=== PATIENT | male | born 1940 | race African-American/Black ===

== ENCOUNTER 2018-06-14 13:40 | Inpatient (IN) | payer MEDICARE, OTHER ==
[2018-06-14] VITALS (7 sets, daily range): BP systolic 94–168; BP diastolic 70–109
[~2018-06-14] VITALS: Ht 177.8 cm; Wt 99.3 kg
--- NOTE | 2018-06-14 13:40 | NUR ---
ED Nurse Note: PT BROUGHT IN BY R34 FROM HOME. PT CONFUSED UPON ARRIVAL. PER EMS, PT IS HYPOTENSIVE. UPON ARRIVAL BP: 94/70, HR: 134, AND RR:34@98% O2 SATURATION. BG AT BEDSIDE: CRITICALLY HIGH. DR. JAMES RAMIRES.
--- NOTE | 2018-06-14 14:00 | NUR ---
ED Nurse Note: PT BROTHER AT BEDSIDE WHO REPORTS THAT AMBULANCE WAS INITIALLY CALLED DUE TO PT'S INABILITY TO CONSUME FOOD X 3 DAYS AND INCREASING FATIGUE.
[2018-06-14 14:21] LABS: BASOPHILS % (AUTO) 0.7 % (0.0-2.0); EOSINOPHILS % (AUTO) 0.1 % (0.0-3.0); HEMATOCRIT 47.1 % (42.0-52.0); HEMOGLOBIN 15.6 G/DL (14.2-18.0); LYMPHOCYTES % (AUTO) 15.6 % (20.0-45.0); MEAN CORPUSCULAR VOLUME 96 FL (80-99); MONOCYTES % (AUTO) 8.1 % (1.0-10.0); NEUTROPHILS % (AUTO) 75.6 % (45.0-75.0); PLATELET COUNT 249 K/UL (150-450); RED CELL DISTRIBUTION WIDTH 12.4 % (11.6-14.8); WHITE BLOOD COUNT 12.5 K/UL (4.8-10.8)
[2018-06-14 14:57] LABS: ALANINE AMINOTRANSFERASE 16 U/L (12-78); ALBUMIN 2.8 G/DL (3.4-5.0); ALBUMIN/GLOBULIN RATIO 0.7 (1.0-2.7); ALKALINE PHOSPHATASE 89 U/L (46-116); ANION GAP 17 mmol/L (5-15); ASPARTATE AMINO TRANSFERASE 14 U/L (15-37); BILIRUBIN,TOTAL 0.8 MG/DL (0.2-1.0); BLOOD UREA NITROGEN 92 mg/dL (7-18); CARBON DIOXIDE 19 MMOL/L (21-32); CHLORIDE 102 MMOL/L (98-107); CKMB 1.9 NG/ML (0.0-3.6); CREATINE KINASE 175 U/L (26-308); CREATININE 2.7 MG/DL (0.55-1.30); POTASSIUM 4.7 MMOL/L (3.5-5.1); SODIUM 138 MMOL/L (136-145)
--- NOTE | 2018-06-14 15:48 | Diagnostic Imaging Report ---
Indication: Chest pain Technique: One view of the chest Comparison: none Findings: Inspiration is suboptimal, with some crowding of bronchovascular markings. The heart is borderline enlarged. The lungs and pleural spaces are clear. The aorta is tortuous. Impression: Borderline cardiomegaly No definite acute process
[2018-06-14 15:54] LABS: APPEARANCE,URINE CLEAR; BILIRUBIN, URINE NEGATIVE (NEGATIVE); COLOR,URINE PALE YELLOW; GLUCOSE, URINE (UA) 4+ (NEGATIVE); KETONES,URINE 2+ (NEGATIVE); LEUKOCYTE ESTERASE ,URINE NEGATIVE (NEGATIVE); NITRITE,URINE NEGATIVE (NEGATIVE); PH,URINE 5 (4.5-8.0); PROTEIN,URINE 2+ (NEGATIVE); UROBILINOGEN,URINE NORMAL MG/DL (0.0-1.0)
[2018-06-14] MEDS ORDERED: Cefepime HCl 1 GM in D5W 55 ML IVPB ONE (16:00)
--- NOTE | 2018-06-14 16:21 | Emergency Room Report ---
History of Present Illness General Chief Complaint: Altered Mental Status Source: Patient, Family Member Present Illness HPI This patient is accompanied by his brother. The patient has a history of diabetes. The patient reports a few days of weakness and inability to eat. The brother states that patient seems confused and fatigued. The patient denies pain. He denies nausea or vomiting. He denies recent illness. He denies fever or chills. He denies cough or congestion. He does have a history of diabetes but has not taken his blood sugar in the past few days or taken any of his medications. He has no other complaints. Allergies: Coded Allergies: No Known Allergies (Unverified , 06/14/18) Patient History Past Medical History: see triage record, DM, HTN Social History: Denies: smoking, alcohol use, drug use Reviewed Nursing Documentation: PMH: Agreed; PSxH: Agreed Review of Systems All Other Systems: negative except mentioned in HPI Physical Exam Vital Signs Date Time Temp Pulse Resp B/P (MAP) Pulse Ox O2 Delivery O2 Flow Rate FiO2 06/14/18 13:40 134 34 Nasal Cannula 2.0 06/14/18 13:40 94/70 99 06/14/18 14:36 97.5 Sp02 EP Interpretation: reviewed, normal General Appearance: no apparent distress, alert, GCS 15, non-toxic Head: normocephalic, atraumatic Eyes: bilateral eye normal inspection, bilateral eye PERRL ENT: hearing grossly normal, normal pharynx, no angioedema, normal voice Neck: full range of motion, supple/symm/no masses Respiratory: chest non-tender, lungs clear, normal breath sounds, no respiratory distress, no retraction, no accessory muscle use, speaking full sentences Cardiovascular #1: regular rate, rhythm, no edema Gastrointestinal: normal bowel sounds, non tender, soft, non-distended, no guarding, no rebound Rectal: deferred Musculoskeletal: back normal, gait/station normal, normal range of motion, non- tender, calf tenderness Neurologic: alert, responsive, motor strength/tone normal, sensory intact, speech normal, other - Difficulty recalling details like medications ect. Psychiatric: mood/affect normal, no suicidal/homicidal ideation Skin: normal color, no rash, warm/dry, well hydrated Medical Decision Making Diagnostic Impression: Primary Impression: Hyperglycemic hyperosmolar nonketotic coma Additional Impressions: Acute renal failure Lactic acidosis Dehydration Tachycardia Pneumonia Altered mental status ER Course This patient presents with hyperglycemic hyperosmolar syndrome. This is likely causing his altered mental status and this is likely multifactorial with the acute renal failure. The patient is also profoundly dehydrated and in acute renal failure. The patient was found to have a lactic acidosis and tachycardia. There is a questionable opacification on chest x-ray that could be pneumonia versus artifact given the poor inspiration on the film. The patient was given aggressive IV fluids and broad-spectrum antibiotics and admitted to the ICU. This patient is critically ill. This patient required complex medical decision- making, aggressive intervention, extensive laboratory workup and monitoring. Critical care time: 40 minutes. Laboratory Tests Test 06/14/18 13:45 06/14/18 14:00 White Blood Count 12.5 K/UL (4.8-10.8) H Red Blood Count 4.90 M/UL (4.70-6.10) Hemoglobin 15.6 G/DL (14.2-18.0) Hematocrit 47.1 % (42.0-52.0) Mean Corpuscular Volume 96 FL (80-99) Mean Corpuscular Hemoglobin 31.9 PG (27.0-31.0) H Mean Corpuscular Hemoglobin Concent 33.2 G/DL (32.0-36.0) Red Cell Distribution Width 12.4 % (11.6-14.8) Platelet Count 249 K/UL (150-450) Mean Platelet Volume 6.9 FL (6.5-10.1) Neutrophils (%) (Auto) 75.6 % (45.0-75.0) H Lymphocytes (%) (Auto) 15.6 % (20.0-45.0) L Monocytes (%) (Auto) 8.1 % (1.0-10.0) Eosinophils (%) (Auto) 0.1 % (0.0-3.0) Basophils (%) (Auto) 0.7 % (0.0-2.0) Urine Color Pale yellow Urine Appearance Clear Urine pH 5 (4.5-8.0) Urine Specific [place] 1.015 (1.005-1.035) Urine Protein 2+ (NEGATIVE) H Urine Glucose (UA) 4+ (NEGATIVE) H Urine Ketones 2+ (NEGATIVE) H Urine Blood 2+ (NEGATIVE) H Urine Nitrite Negative (NEGATIVE) Urine Bilirubin Negative (NEGATIVE) Urine Urobilinogen Normal MG/DL (0.0-1.0) Urine Leukocyte Esterase Negative (NEGATIVE) Urine RBC 2-4 /HPF (0 - 0) H Urine WBC 0-2 /HPF (0 - 0) Urine Squamous Epithelial Cells Occasional /LPF Urine Bacteria None /HPF (NONE) Sodium Level 138 MMOL/L (136-145) Potassium Level 4.7 MMOL/L (3.5-5.1) Chloride Level 102 MMOL/L (98-107) Carbon Dioxide Level 19 MMOL/L (21-32) L Anion Gap 17 mmol/L (5-15) H Blood Urea Nitrogen 92 mg/dL (7-18) H Creatinine 2.7 MG/DL (0.55-1.30) H Estimate Glomerular Filtration Rate mL/min (>60) Glucose Level 542 MG/DL (74-106) *H Lactic Acid Level 6.00 mmol/L (0.4-2.0) H Calcium Level 9.0 MG/DL (8.5-10.1) Magnesium Level 2.0 MG/DL (1.8-2.4) Total Bilirubin 0.8 MG/DL (0.2-1.0) Aspartate Amino Transferase (AST) 14 U/L (15-37) L Alanine Aminotransferase (ALT) 16 U/L (12-78) Alkaline Phosphatase 89 U/L (46-116) Total Creatine Kinase 175 U/L (26-308) Creatine Kinase MB 1.9 NG/ML (0.0-3.6) Creatine Kinase MB Relative Index 1.0 Troponin I 0.096 ng/mL (0.000-0.056) Total Protein 6.6 G/DL (6.4-8.2) Albumin 2.8 G/DL (3.4-5.0) L Globulin 3.8 g/dL Albumin/Globulin Ratio 0.7 (1.0-2.7) L Acetone Level Negative (NEGATIVE) Arterial Blood pH 7.321 (7.350-7.450) Arterial Blood Partial Pressure CO2 33.9 mmHg (35.0-45.0) L Arterial Blood Partial Pressure O2 118.6 mmHg (75.0-100.0) H Arterial Blood HCO3 17.1 mmol/L (22.0-26.0) *L Arterial Blood Oxygen Saturation 97.3 % (95-100) Arterial Blood Base Excess -8.0 (-2-2) L Josef Test Positive Microbiology Date/Time Source Procedure Growth Status 06/14/18 13:45 Nasal Nares Influenza Types A,B Antigen (NEIL) - Final Complete EKG Diagnostic Results Rate: tachycardiac Rhythm: other - S.tachycardia, RBBB ST Segments: no acute changes Rhythm Strip Diag. Results EP Interpretation: yes Rate: 140's Rhythm: no PVC's, no ectopy, other - s.tachycardia Chest X-Ray Diagnostic Results Chest X-Ray Diagnostic Results : Chest X-Ray Ordered: Yes # of Views/Limited/Complete: 1 View Indication: Other - AMS EP Interpretation: Yes Interpretation: other - Questionable opacity in the RLL Impression: Other - See above Electronically Signed by: Triny Lopez DO Last Vital Signs Date Time Temp Pulse Resp B/P (MAP) Pulse Ox O2 Delivery O2 Flow Rate FiO2 06/14/18 14:36 97.5 127 20 137/76 97 Nasal Cannula 2.0 Disposition: ADMITTED INPATIENT Condition: Critical Referrals: NOT CHOSEN IPA/,REFERRING (PCP) Triny Lopez DO Jun 14, 2018 16:20
--- NOTE | 2018-06-14 16:58 | NUR ---
ED Nurse Note: KULDEEP (SON): [phone]
--- NOTE | 2018-06-14 17:07 | NUR ---
ED Nurse Note: BG RECHECK: 307. DR. FISHER MADE AWARE.
[2018-06-14] MEDS ORDERED: Morphine Sulfate 4mg/ml Inj (IV USE ONLY) IVP PRN (17:15)
[2018-06-14] MEDS ORDERED: Insulin Rate Change 1 Each MISC PRN (17:15)
[2018-06-14] MEDS ORDERED: Insulin Human Regular 100units/ml 3ml IV PRN ×2 (17:15)
[2018-06-14] MEDS ORDERED: Nitroglycerin Subl 0.4mg tab SL PRN (17:15)
[2018-06-14] MEDS ORDERED: Albuterol/Ipratropium 3ml neb HHN PRN (17:15)
[2018-06-14] MEDS ORDERED: LORazepam Inj 2mg/ml 1ml IV PRN (17:15)
[2018-06-14] MEDS ORDERED: Miralax 17gm pkt ORAL PRN (17:15)
--- NOTE | 2018-06-14 17:40 | NUR ---
ED Nurse Note: CALLED ICU FOR PT REPORT. PER ICU CHARGE NURSE, PT DOES NOT BELONG IN ICU. ICU CHARGE WILL CALL [employer] FOR BED CHANGE.
--- NOTE | 2018-06-14 17:50 | NUR ---
Note katerina in EDM - 06/14/18 at 1751 by SUDHA ED Nurse Note: CALLED SDU FOR PT REPORT. PER UNIT, CANNOT FIND NURSE. CALL BACK LATER.
--- NOTE | 2018-06-14 18:45 | NUR ---
ED Nurse Note: CALLED ICU AND SPOKE WITH CHARGE NURSE. CHARGE NURSE STILL REFUSING TO TAKE PT BUT SHE BELIEVES THE PT DOES NOT BELONG IN ICU.
--- NOTE | 2018-06-14 19:11 | NUR ---
ED Nurse Note: REPORT GIVEN TO MIGUEL JAY RN.
--- NOTE | 2018-06-14 19:30 | NUR ---
ED Nurse Note: Called ICU for report. Receiving RN unable to receive report; will attempt again in 15 min
--- NOTE | 2018-06-14 20:30 | NUR ---
TRANSFER TO FLOOR: Patient transferred to SDU 239 as ordered, per MD Palomo . Report given to LELE Knott. Belongings list completed with receiving RN.
--- NOTE | 2018-06-14 20:45 | NUR ---
NURSE NOTES: Received patient from ER, patient arrived via stretcher with RN and a staff. Report received from LELE Otero at bed side. V/S is bp98.2, p 122, rr 20, bp 168/100, sp02 95% RA, denies any pain. Tele box put on. Condom cath put on patient. patient is now in bed in funk position. IV site is to right hand 20g and right forearm 20g and both is intact. Bed is in lowest position .Call light is within easy reach while in bed. Will continue to monitor.
[2018-06-14] MEDS: Heparin 5000 units/ml inj SUBQ SCH (22:37)
--- NOTE | 2018-06-14 22:51 | NUR ---
NURSE NOTES: Patient pulled out IV to right forearm and took off all the blanket and gown. Asked why he did that and he said he doesnt know. patient also took off the condom cath. a new one is applied. Will continue to monitor patient.
[2018-06-15] VITALS: BP 180/95
[2018-06-15] MEDS: NovoLOG Insulin Flexpen SUBQ SCH ×8 (01:03→21:00)
[2018-06-15] MEDS ORDERED: LORazepam Inj 2mg/ml 1ml IV PRN (02:15)
[2018-06-15 04:00] VITALS: BP 164/84
[2018-06-15 06:24] LABS: INR 1.1 (0.9-1.1)
[2018-06-15 06:39] LABS: ALANINE AMINOTRANSFERASE 14 U/L (12-78); ALBUMIN 2.4 G/DL (3.4-5.0); ALKALINE PHOSPHATASE 69 U/L (46-116); ASPARTATE AMINO TRANSFERASE 13 U/L (15-37); BILIRUBIN,DIRECT < 0.1 MG/DL (0.0-0.3); BILIRUBIN,TOTAL 0.4 MG/DL (0.2-1.0)
--- NOTE | 2018-06-15 07:00 | NUR ---
HAND-OFF: Report given to Esau Matthews RN .
[2018-06-15 08:00] VITALS: BP 139/101
--- NOTE | 2018-06-15 08:03 | NUR ---
NURSE NOTES: Received report from LELE Garcia. Patient is resting in bed, in stable condition. No s/sx of SOB, breathing is even and unlabored. Denies any presence of pain or discomfort at this time. Bed is in lowest position, brakes engaged. Call light is kept within easy reach. Will continue to monitor patient.
[2018-06-15 08:20] LABS: ANION GAP 10 mmol/L (5-15); BLOOD UREA NITROGEN 58 mg/dL (7-18); CALCIUM 8.3 MG/DL (8.5-10.1); CARBON DIOXIDE 21 MMOL/L (21-32); CHLORIDE 116 MMOL/L (98-107); CREATININE 1.5 MG/DL (0.55-1.30); POTASSIUM 4.2 MMOL/L (3.5-5.1); SODIUM 147 MMOL/L (136-145)
[2018-06-15] MEDS: Heparin 5000 units/ml inj SUBQ SCH ×2 (08:53→21:44)
[2018-06-15] MEDS ORDERED: Levemir Flexpen SUBQ SCH (10:00)
--- NOTE | 2018-06-15 10:29 | NUR ---
NURSE NOTES: Called and spoke with Dr. Moon, clarified Novolog orders with . acknowledged and ordered to change Mariel sliding scale to AC and HS. Orders entered, noted, and carried out. Will continue to monitor patient.
--- NOTE | 2018-06-15 11:21 | Consultation ---
History of Present Illness General Date patient seen: Jun 15, 2018 Chief Complaint: Altered Mental Status Present Illness Allergies: Coded Allergies: No Known Allergies (Unverified , 06/14/18) Medication History Unable to Obtain Active Prescriptions or Reported Meds Patient History Healthcare decision maker N Resuscitation status Full Code Advanced Directive on File No Past Medical/Surgical History Past Medical/Surgical History: (1) Diabetes mellitus (2) Hypertension Review of Systems Hematologic/Lymphatic: Reports: no symptoms All Other Systems: negative except mentioned in HPI Physical Exam General Appearance: WD/WN Lines, tubes and drains: peripheral HEENT: normocephalic, atraumatic Neck: non-tender, normal alignment Respiratory/Chest: chest wall non-tender, lungs clear Breasts: no masses Cardiovascular/Chest: normal peripheral pulses, normal rate Abdomen: normal bowel sounds Genitourinary/Rectal: normal genital exam Last 24 Hour Vital Signs Date Time Temp Pulse Resp B/P (MAP) Pulse Ox O2 Delivery O2 Flow Rate FiO2 06/15/18 08:00 111 06/15/18 08:00 97.7 112 22 139/101 (114) 96 06/15/18 08:00 Room Air 06/15/18 04:00 Room Air 06/15/18 04:00 98.2 108 24 164/84 (110) 95 06/15/18 03:42 115 06/15/18 00:00 Room Air 06/15/18 00:00 98.6 124 20 180/95 (123) 98 06/14/18 23:42 121 06/14/18 21:48 120 20 Room Air 21 06/14/18 21:38 122 06/14/18 20:52 Room Air 06/14/18 20:45 98.2 122 168/100 (122) 06/14/18 20:30 98.0 96 24 145/76 100 Room Air 2.0 06/14/18 20:00 98.0 96 24 145/76 100 Room Air 2.0 06/14/18 18:40 98.0 122 24 150/80 98 Room Air 06/14/18 17:40 97.9 124 24 149/109 96 Nasal Cannula 2.0 06/14/18 15:40 97.7 121 19 125/81 99 Nasal Cannula 2.0 06/14/18 14:36 97.5 127 20 137/76 97 Nasal Cannula 2.0 06/14/18 13:40 134 34 94/70 99 Nasal Cannula 2.0 06/14/18 13:40 97.9 134 34 94/70 98 Room Air 06/14/18 13:40 134 34 Nasal Cannula 2.0 Intake and Output 06/14/18 06/15/18 19:00 07:00 Intake Total 4055 ml 1500 ml Balance 4055 ml 1500 ml Intake IV Total 4055 ml 1500 ml # Voids 2 3 # Bowel Movements 2 Laboratory Tests Test 06/14/18 13:45 06/14/18 14:00 06/14/18 17:56 06/15/18 02:09 White Blood Count 12.5 K/UL (4.8-10.8) H Red Blood Count 4.90 M/UL (4.70-6.10) Hemoglobin 15.6 G/DL (14.2-18.0) Hematocrit 47.1 % (42.0-52.0) Mean Corpuscular Volume 96 FL (80-99) Mean Corpuscular Hemoglobin 31.9 PG (27.0-31.0) H Mean Corpuscular Hemoglobin Concent 33.2 G/DL (32.0-36.0) Red Cell Distribution Width 12.4 % (11.6-14.8) Platelet Count 249 K/UL (150-450) Mean Platelet Volume 6.9 FL (6.5-10.1) Neutrophils (%) (Auto) 75.6 % (45.0-75.0) H Lymphocytes (%) (Auto) 15.6 % (20.0-45.0) L Monocytes (%) (Auto) 8.1 % (1.0-10.0) Eosinophils (%) (Auto) 0.1 % (0.0-3.0) Basophils (%) (Auto) 0.7 % (0.0-2.0) Urine Color Pale yellow Urine Appearance Clear Urine pH 5 (4.5-8.0) Urine Specific [place] 1.015 (1.005-1.035) Urine Protein 2+ (NEGATIVE) H Urine Glucose (UA) 4+ (NEGATIVE) H Urine Ketones 2+ (NEGATIVE) H Urine Blood 2+ (NEGATIVE) H Urine Nitrite Negative (NEGATIVE) Urine Bilirubin Negative (NEGATIVE) Urine Urobilinogen Normal MG/DL (0.0-1.0) Urine Leukocyte Esterase Negative (NEGATIVE) Urine RBC 2-4 /HPF (0 - 0) H Urine WBC 0-2 /HPF (0 - 0) Urine Squamous Epithelial Cells Occasional /LPF Urine Bacteria None /HPF (NONE) Sodium Level 138 MMOL/L (136-145) Potassium Level 4.7 MMOL/L (3.5-5.1) Chloride Level 102 MMOL/L (98-107) Carbon Dioxide Level 19 MMOL/L (21-32) L Anion Gap 17 mmol/L (5-15) H Blood Urea Nitrogen 92 mg/dL (7-18) H Creatinine 2.7 MG/DL (0.55-1.30) H Estimat Glomerular Filtration Rate mL/min (>60) Glucose Level 542 MG/DL (74-106) *H Lactic Acid Level 6.00 mmol/L (0.4-2.0) H 3.40 mmol/L (0.66-2.22) H Calcium Level 9.0 MG/DL (8.5-10.1) Magnesium Level 2.0 MG/DL (1.8-2.4) Total Bilirubin 0.8 MG/DL (0.2-1.0) Aspartate Amino Transf (AST/SGOT) 14 U/L (15-37) L Alanine Aminotransferase (ALT/SGPT) 16 U/L (12-78) Alkaline Phosphatase 89 U/L (46-116) Total Creatine Kinase 175 U/L (26-308) Creatine Kinase MB 1.9 NG/ML (0.0-3.6) Creatine Kinase MB Relative Index 1.0 Troponin I 0.096 ng/mL (0.000-0.056) Total Protein 6.6 G/DL (6.4-8.2) Albumin 2.8 G/DL (3.4-5.0) L Globulin 3.8 g/dL Albumin/Globulin Ratio 0.7 (1.0-2.7) L Acetone Level Negative (NEGATIVE) Arterial Blood pH 7.321 (7.350-7.450) 7.398 (7.350-7.450) Arterial Blood Partial Pressure CO2 33.9 mmHg (35.0-45.0) L 30.5 mmHg (35.0-45.0) L Arterial Blood Partial Pressure O2 118.6 mmHg (75.0-100.0) H 82.0 mmHg (75.0-100.0) Arterial Blood HCO3 17.1 mmol/L (22.0-26.0) *L 18.4 mmol/L (22.0-26.0) L Arterial Blood Oxygen Saturation 97.3 % (95-100) 95.2 % (95-100) Arterial Blood Base Excess -8.0 (-2-2) L -5.3 (-2-2) L Josef Test Positive Positive Test 06/15/18 03:30 Prothrombin Time 12.0 SEC (9.30-11.50) H Prothromb Time International Ratio 1.1 (0.9-1.1) Activated Partial Thromboplast Time 25 SEC (23-33) Sodium Level 147 MMOL/L (136-145) H Potassium Level 4.2 MMOL/L (3.5-5.1) Chloride Level 116 MMOL/L (98-107) H Carbon Dioxide Level 21 MMOL/L (21-32) Anion Gap 10 mmol/L (5-15) Blood Urea Nitrogen 58 mg/dL (7-18) H Creatinine 1.5 MG/DL (0.55-1.30) H Estimat Glomerular Filtration Rate mL/min (>60) Glucose Level 213 MG/DL (74-106) #H Calcium Level 8.3 MG/DL (8.5-10.1) L Phosphorus Level 2.0 MG/DL (2.5-4.9) L Total Bilirubin 0.4 MG/DL (0.2-1.0) Direct Bilirubin < 0.1 MG/DL (0.0-0.3) Aspartate Amino Transf (AST/SGOT) 13 U/L (15-37) L Alanine Aminotransferase (ALT/SGPT) 14 U/L (12-78) Alkaline Phosphatase 69 U/L (46-116) Total Protein 5.4 G/DL (6.4-8.2) L Albumin 2.4 G/DL (3.4-5.0) L Microbiology Date/Time Source Procedure Growth Status 06/14/18 13:45 Nasal Nares Influenza Types A,B Antigen (NEIL) - Final Complete Height (Feet): 5 Height (Inches): 10.00 Weight (Pounds): 219 Medications Current Medications Medications (Trade) Dose Ordered Sig/Indira Route PRN Reason Start Time Stop Time Status Last Admin Dose Admin Acetaminophen (Tylenol) 650 mg Q4H PRN ORAL Fever 06/14/18 17:15 07/14/18 17:14 Albuterol/ Ipratropium (Albuterol/ Ipratropium) 3 ml Q4H PRN HHN Shortness of Breath 06/14/18 17:15 06/19/18 17:14 Dextrose (Dextrose 50%) 25 ml Q30M PRN IV Hypoglycemia 06/15/18 09:30 07/15/18 09:29 Dextrose (Dextrose 50%) 50 ml Q30M PRN IV Hypoglycemia 06/15/18 09:30 07/15/18 09:29 Heparin Sodium (Porcine) (Heparin 5000 units/ml) 5,000 units EVERY 12 HOURS SUBQ 06/14/18 22:00 07/14/18 21:59 06/15/18 08:53 Insulin Aspart (NovoLOG) AC+HS SUBQ 06/15/18 11:30 07/15/18 00:59 Insulin Aspart (NovoLOG) 10 units NOVOTIAC SUBQ 06/15/18 11:50 07/15/18 11:49 Insulin Detemir (Levemir) 30 units DAILY SUBQ 06/15/18 10:00 07/15/18 09:59 06/15/18 10:37 Lorazepam (Ativan 2mg/ml 1ml) 0.5 mg Q4H PRN IV For Anxiety 06/15/18 02:15 06/22/18 02:14 Morphine Sulfate (Morphine Sulfate) 4 mg Q4H PRN IVP Severe Pain (Pain Scale 7-10) 06/14/18 17:15 06/21/18 17:14 Nitroglycerin (Ntg) 0.4 mg Q5M PRN SL Prn Chest Pain 06/14/18 17:15 07/14/18 17:14 Ondansetron HCl (Zofran) 4 mg Q6H PRN IVP Nausea & Vomiting 06/14/18 17:15 07/14/18 17:14 Polyethylene Glycol (Miralax) 17 gm DAILYPRN PRN ORAL Constipation 06/14/18 17:15 07/14/18 17:14 Sodium Chloride 1,000 ml @ 150 mls/hr Q6H40M IV 06/14/18 17:10 07/14/18 17:09 06/15/18 04:13 Assessment/Plan Problem List: (1) Acute encephalopathy ICD Codes: G93.40 - Encephalopathy, unspecified SNOMED: 03948152, 770075210 (2) Hyperosmolar coma ICD Codes: E11.01 - Type 2 diabetes mellitus with hyperosmolarity with coma SNOMED: 74467365, 782938953 (3) DKA, type 1 ICD Codes: E10.10 - Type 1 diabetes mellitus with ketoacidosis without coma SNOMED: 77052994, 926138778 (4) Acute renal failure ICD Codes: N17.9 - Acute kidney failure, unspecified SNOMED: 18826172 (5) Diabetes mellitus ICD Codes: E11.9 - Type 2 diabetes mellitus without complications SNOMED: 04520531 (6) Hypertension ICD Codes: I10 - Essential (primary) hypertension SNOMED: 81344638 Assessment/Plan iv fluids insulin coverage f/u bun/creatinine pt/ot monitor BP watch heart rate Salvador Blandon MD Jun 15, 2018 11:21
[2018-06-15 12:00] VITALS: BP 140/111
--- NOTE | 2018-06-15 12:00 | NUR ---
NURSE NOTES: Dr. Blandon at nurse station ordered [facility] medium diet for patient. Order entered, noted, and carried out. Will continue to monitor patient.
--- NOTE | 2018-06-15 13:36 | NUR ---
NURSE NOTES: Dr. Culver seen and examined patient. MD ordered to transfer to Telemetry. Order entered, noted, and carried out. Will continue to monitor patient.
--- NOTE | 2018-06-15 14:09 | History & Physical ---
History and Physical History & Physicial Tristan Culver MD Jun 15, 2018 14:09
--- NOTE | 2018-06-15 15:54 | Diagnostic Imaging Report ---
Indication:Elevated Bun and Creatinine. Technique: Grayscale and duplex Doppler imaging of the kidneys performed. Comparison: None Findings: The size, contour, and echogenicity of both kidneys are within normal limits. There is a 3.5 cm cyst within the left kidney. The left kidney measures 10.7 cm. Right kidney 11 seen. There is no hydronephrosis. The IVC and urinary bladder are unremarkable. Impression: Left renal cyst. Negative exam otherwise
[2018-06-15 16:00] VITALS: BP 149/103
--- NOTE | 2018-06-15 16:00 | NUR ---
NURSE NOTES: Report received from LELE Cifuentes. Observed patient in bed sleeping. Arousable by voice and verbally responsive. Denies pain at this time. IVF running at prescribed rate. No distress noted in room air. Bed in lowest position. Call light within reach. Will continue to monitor.
--- NOTE | 2018-06-15 16:17 | NUR ---
HAND-OFF: Report given to LELE Skelton.
--- NOTE | 2018-06-15 18:00 | Consultation ---
DATE OF CONSULTATION: 06/15/2018 ENDOCRINOLOGY CONSULTATION: CONSULTING PHYSICIAN: Marc Moon M.D. REFERRING PHYSICIAN: Tristan Culver M.D. REASON FOR CONSULTATION: Diabetes management. HISTORY OF PRESENT ILLNESS: The patient is a 78-year-old male with history of diabetes who was noncompliant with his diabetic medication and glucose monitoring, presented to the hospital with lethargy. He was found to have a significantly elevated glucose of 542 with a bicarb of 19 and anion gap of 17. Lactic acid was positive. The patient was started IV fluid and IV insulin. His IV insulin was discontinued. The patient was transferred to the [facility]. I was called to manage diabetes. PAST MEDICAL HISTORY: 1. Diabetes. 2. Hypertension. 3. Obesity. PAST SURGICAL HISTORY: None. FAMILY HISTORY: Diabetes. SOCIAL HISTORY: No smoking, alcohol, or drug use. REVIEW OF SYSTEMS: As per HPI. MEDICATIONS: As an outpatient unknown. LABORATORY DATA: Sodium 138, potassium 4.7, chloride 102, bicarbonate 19, BUN 92, creatinine 2.7, glucose of 542. WBC 12, hemoglobin 15, hematocrit 47, platelets 249. Lactic acid of 6. PHYSICAL EXAMINATION: GENERAL: The patient is lethargic. VITAL SIGNS: Blood pressure is 164/84, pulse of 104, temperature of 98.2, respiratory rate of 18. HEENT: Pupils are equal and reactive to light and accommodation. Sclerae anicteric. NECK: No JVD. HEART: Regular. LUNGS: Clear. ABDOMEN: Positive bowel sounds. EXTREMITIES: No clubbing, cyanosis, edema. DIAGNOSES: 1. Lactic acidosis. 2. Acute kidney injury. 3. Severe hyperglycemia. DISCUSSION: The patient had lactic acidosis. I am suspecting that the patient was probably on metformin as an outpatient. The patient is not in DKA and the gap acidosis is due to lactic acidosis. Hyperglycemia responded to IV insulin, which there is no need to use it anymore. I will start the patient on Levemir 30 units daily, NovoLog 10 units before each meal in addition to sliding scale with NovoLog. Further adjustment according to blood glucose values. I will follow him closely during hospital stay and the patient will be infused with normal saline. Electrolytes will be followed and repleted. Thank you, Dr. Culver, for the courtesy of this consultation. Marc Moon M.D. DR: MORIAH JOB#: [id number] CC: MARGARET
--- NOTE | 2018-06-15 18:00 | History and Physical Report ---
DATE OF ADMISSION: 06/14/2018 CHIEF COMPLAINT: Weakness and altered mental status. HISTORY OF PRESENT ILLNESS: This is a 78-year-old gentleman with past medical history significant for diabetes type 2 and hypertension, who has presented to the emergency room accompanied with the son, who has been complaining about the weakness, inability to eat, and severe weakness of lower extremity. Brother stated that he seems to be more confused than usual and fatigued. Denies any fever or chills. Denies any nausea or vomiting. Denies any fall or head trauma. Denies any chest congestion. Denies any loss of consciousness. He has been usually following with the [facility] and he has not been compliant with his medication for diabetes. Shortly after initial evaluation in the emergency room, the patient was admitted to the hospital with hyperglycemic hyperosmolar nonketotic coma as well as acute kidney injury with acute tubular necrosis with lactic acidosis, tachycardia, and altered mental status, most likely secondary to toxic metabolic encephalopathy as a result of the hyperglycemia and dehydration. PAST MEDICAL HISTORY/PAST SURGICAL HISTORY: Significant for diabetes type 2, hypertension, and morbid obesity. MEDICATIONS AT HOME: Please refer to medication reconciliation. ALLERGIES: No known drug allergies. SOCIAL HISTORY: The patient currently smokes half a pack of cigarettes over 30 years. Denies any alcohol abuse. No substance abuse. He lives at home. His brother is very involved with his care. FAMILY HISTORY: Diabetes runs in the family. REVIEW OF SYSTEMS: Mostly as above. Denies any dysuria, frequency, or hematuria. Complained about weakness mostly in the lower extremity. Denies any hemoptysis or hematochezia. Denies any suicidal or homicidal ideation. Denies any loss of consciousness. Denies any double vision. PHYSICAL EXAMINATION: VITAL SIGNS: On admission, temperature 97.5, pulse of 134, respirations 34, and blood pressure 94/70. GENERAL: The patient is awake and responsive. No acute distress. HEAD AND NECK: Pupils are reactive to light. Extraocular movements intact. NECK: Supple. No JVD. LUNGS: Good air entry. No wheezing or rales. Decreased air in bases. HEART: S1, S2. Tachycardic. No murmur or gallop. ABDOMEN: Soft and nondistended. Morbidly obese. EXTREMITIES: No cyanosis, clubbing, or edema. NEUROLOGIC: INSTRUMENTATION CONTROLS ENGINEER II through XII are grossly intact. Motor is 5/5 in all extremities. Gait was not assessed due to the patient's status. RECTAL: Refused and deferred. GENITOURINARY: Refused and deferred. PSYCHIATRIC: Mood and affect is intact. LABORATORY AND DIAGNOSTIC DATA: On admission from the ER, sodium 138, potassium 4.7, chloride 102, bicarb 19, BUN 92, creatinine 2.7, and glucose is 542. Calcium is 9.0. Magnesium is 2.0. AST of 14, ALT of 16, and alkaline phosphatase 89. The patient's albumin level is 2.8. PT of 12, INR 1.1, and PTT of 25. WBC of 12, hemoglobin of 15, hematocrit 47, and platelets is 249,000. Urine is +2 protein, +4 glucose, ketone is +2, nitrite negative, leukocyte is negative, and acetone level is negative. ABG, pH of 7.321, pCO2 of 33, pO2 of 118, and saturating 93%. Chest x-ray, borderline cardiomegaly. No definite acute process. ASSESSMENT: 1. Hyperglycemic hyperosmolar nonketotic coma. 2. Acute kidney injury with acute tubular necrosis on chronic kidney disease. 3. Lactic acidosis. 4. Dehydration. 5. Tachycardia. 6. Altered mental status, most likely secondary to toxic metabolic encephalopathy as a result of hyperglycemia and dehydration. 7. Morbid obesity. 8. Possible obstructive sleep apnea, presumably. PLAN: 1. Admit the patient to [facility]. 2. We will start the patient on insulin and aggressive IV hydration. Discussed with the brother extensively at bedside. 3. We will monitor blood glucose very closely. 4. Code status is Full Code. 5. DVT prophylaxis with heparin subcutaneous. 6. We will consider getting PT, OT evaluation once the patient's status improved. Tristan Culver M.D. DR: JOSEPH JOB#: [id number] CC:
--- NOTE | 2018-06-15 19:19 | NUR ---
HAND-OFF: Copy of the report handed to Esau, charge nurse. Stable condition.
[2018-06-15 20:00] VITALS: BP 164/96
[2018-06-15] MEDS ORDERED: 1/2 NS 1000ml IV ONE (20:20)
[2018-06-16] VITALS: BP 149/90
--- NOTE | 2018-06-16 01:00 | NUR ---
NURSE NOTES: Pt transferred from [facility] to Tele 214-1 via saroj bed without incidence. Report received from Sachi ROYAL. Belongings list checked with patient and transferring RN. Only belonging is cell phone which remains at bedside with patient. Pt in stable condition upon transfer. Pt is awake, alert, and oriented x3 with noted confused. Pt is on room air and breathing is even and unlabored. No acute distress noted. IV site is R hand #20g and is asymptomatic, patent, and intact and running IV fluids at rx rate. Bed is placed in lowest position with brake engaged, side rails up x3, and bed alarm on. Call light and side table placed within reach. Will continue to monitor.
--- NOTE | 2018-06-16 01:07 | NUR ---
NURSE NOTES: Transferred patient to 2E Telemetry room 214-1. Report given to LELE Hassan. Belongings accounted for at bedside. Patient is stable.
[2018-06-16] MEDS ORDERED: Morphine Sulfate 4mg/ml Inj (IV USE ONLY) IVP PRN (01:15)
[2018-06-16] MEDS ORDERED: Nitroglycerin Subl 0.4mg tab SL PRN (01:15)
[2018-06-16] MEDS ORDERED: Albuterol/Ipratropium 3ml neb HHN PRN (01:15)
[2018-06-16] MEDS ORDERED: LORazepam Inj 2mg/ml 1ml IV PRN (02:15)
[2018-06-16 04:00] VITALS: BP 140/90
--- NOTE | 2018-06-16 05:39 | NUR ---
NURSE NOTES: Pt transferred to [facility]- in stable condition. No acute distress noted. Report given to Sachi ROYAL. Endorsed plan of care.
--- NOTE | 2018-06-16 05:39 | NUR ---
NURSE NOTES: Received patient back from LELE Hassan. Patient is placed in room 235-1. Linens are changed, IV NS @150ml/hour is running, bed on lowest position with alarm activated, call light within reach, belongings accounted for. Patient is stable. Will continue plan of care.
[2018-06-16] MEDS: NovoLOG Insulin Flexpen SUBQ SCH ×5 (06:00→17:50)
[2018-06-16] MEDS ORDERED: NovoLOG Insulin Flexpen SUBQ SCH (06:30)
--- NOTE | 2018-06-16 07:21 | NUR ---
HAND-OFF: Report given to Jessica Ridley RN.
--- NOTE | 2018-06-16 07:25 | NUR ---
NURSE NOTES: Report received from Sachi Wilder RN.Pt resting in bed asleep but easily awaken with verbal command,denies any c/o pain or discomfort S-Tach on the monitor,pt continent of urine,uses urinal,IV site to RH intact,with IVF running NS at 150 ml/hr, skin warm and dry,SR up x2 call waters within reach at bedside, HOB elevated,will continue with plans of care.
--- NOTE | 2018-06-16 07:32 | General Progress Note ---
Assessment/Plan Problem List: (1) Lactic acidosis ICD Codes: E87.2 - Acidosis SNOMED: 93892245 (2) Diabetes mellitus ICD Codes: E11.9 - Type 2 diabetes mellitus without complications SNOMED: 25362204 (3) Hypertension ICD Codes: I10 - Essential (primary) hypertension SNOMED: 66130619 (4) Acute encephalopathy ICD Codes: G93.40 - Encephalopathy, unspecified SNOMED: 09113359, 265275729 (5) Acute renal failure ICD Codes: N17.9 - Acute kidney failure, unspecified SNOMED: 29406715 Assessment/Plan reduce Levemir to 15 units daily reduce Novolog to 5 units ac tid continue NISS ac / hs Subjective Allergies: Coded Allergies: No Known Allergies (Unverified , 06/14/18) All Systems: reviewed and negative except above Subjective events noted glucose values improved Item Value Date Time Bedside Blood Glucose 108 mg/dl 06/16/18 0630 Bedside Blood Glucose 104 mg/dl 06/15/18 2100 Bedside Blood Glucose 124 mg/dl H 06/15/18 1658 Bedside Blood Glucose 99 mg/dl 06/15/18 1146 Bedside Blood Glucose 152 mg/dl H 06/15/18 1037 Bedside Blood Glucose 225 mg/dl H 06/15/18 0441 Objective Last 24 Hour Vital Signs Date Time Temp Pulse Resp B/P (MAP) Pulse Ox O2 Delivery O2 Flow Rate FiO2 06/16/18 04:00 98.9 94 17 140/90 (107) 95 06/16/18 04:00 100 06/16/18 00:00 98.1 99 20 149/90 (109) 95 06/16/18 00:00 Room Air 06/15/18 23:43 99 06/15/18 20:27 104 20 Room Air 21 06/15/18 20:00 98.6 102 20 164/96 (118) 96 06/15/18 20:00 Room Air 06/15/18 19:47 99 06/15/18 18:02 107 20 Room Air 21 06/15/18 16:00 98.1 111 20 149/103 (118) 97 06/15/18 16:00 99 06/15/18 16:00 Room Air 06/15/18 12:00 Room Air 06/15/18 12:00 98.1 109 24 140/111 (121) 93 06/15/18 12:00 117 06/15/18 08:00 111 06/15/18 08:00 97.7 112 22 139/101 (114) 96 06/15/18 08:00 Room Air Intake and Output 06/15/18 06/16/18 18:59 06:59 Intake Total 1250 ml 645 ml Balance 1250 ml 645 ml Intake Oral 350 ml IV Total 900 ml 645 ml # Voids 2 3 # Bowel Movements 4 Height (Feet): 5 Height (Inches): 10.00 Weight (Pounds): 219 General Appearance: no apparent distress Neck: normal alignment Cardiovascular: normal rate Respiratory/Chest: lungs clear Abdomen: normal bowel sounds Objective Current Medications Medications (Trade) Dose Ordered Sig/Indira Route PRN Reason Start Time Stop Time Status Last Admin Dose Admin Acetaminophen (Tylenol) 650 mg Q4H PRN ORAL Fever 06/16/18 01:15 07/14/18 17:14 Albuterol/ Ipratropium (Albuterol/ Ipratropium) 3 ml Q4H PRN HHN Shortness of Breath 06/16/18 01:15 06/19/18 17:14 Dextrose (Dextrose 50%) 25 ml Q30M PRN IV Hypoglycemia 06/16/18 01:30 07/15/18 09:29 Dextrose (Dextrose 50%) 50 ml Q30M PRN IV Hypoglycemia 06/16/18 01:30 07/15/18 09:29 Heparin Sodium (Porcine) (Heparin 5000 units/ml) 5,000 units EVERY 12 HOURS SUBQ 06/16/18 09:00 07/14/18 21:59 Insulin Aspart (NovoLOG) AC+HS SUBQ 06/16/18 06:30 07/15/18 00:59 Insulin Aspart (NovoLOG) 10 units NOVOTIAC SUBQ 06/16/18 06:30 07/15/18 11:49 Insulin Detemir (Levemir) 30 units DAILY SUBQ 06/16/18 09:00 07/15/18 09:59 Lorazepam (Ativan 2mg/ml 1ml) 0.5 mg Q4H PRN IV For Anxiety 06/16/18 02:15 06/22/18 02:14 Morphine Sulfate (Morphine Sulfate) 4 mg Q4H PRN IVP Severe Pain (Pain Scale 7-10) 06/16/18 01:15 06/21/18 17:14 Nitroglycerin (Ntg) 0.4 mg Q5M PRN SL Prn Chest Pain 06/16/18 01:15 07/14/18 17:14 Ondansetron HCl (Zofran) 4 mg Q6H PRN IVP Nausea & Vomiting 06/16/18 05:15 07/14/18 17:14 Polyethylene Glycol (Miralax) 17 gm DAILYPRN PRN ORAL Constipation 06/16/18 17:15 07/14/18 17:14 Sodium Chloride 1,000 ml @ 150 mls/hr Q6H40M IV 06/16/18 01:15 07/14/18 17:09 06/16/18 04:35 Marc Moon MD Jun 16, 2018 07:31
--- NOTE | 2018-06-16 07:34 | Pulmonology Progress Note ---
Assessment/Plan Assessment/Plan ASSESSMENT Acute metabolic encephalopathy ( due to severe hyperglycemia and dehydration) Hyperosmolar coma Hyperglycemia with hx of DM SASHA, possible ATN ( in setting of hypotension) on CRI HTN Lactic acidosis Dehydration. Morbid obesity. Probably [place] PLAN OF CARE [facility] recreation manager follows BS management with long-acting insulin and short acting premeal insulin, SSI prn , check HgA1c H IVF, decrease rate DVT prophylaxis O2 HHN prn monitor renal parameters and e/lytes, replace lytes prn ( Mg today) creatinine down from 2.7-1.5 likely acute on chronic renal insufficiency brought by dehydration and diabetic ketoacidosis and hyperglycemia elevated troponin likely due to renal failure /leaking , ECG no acute ischemic changes SR on tele patient denies any cardiac complaints: no chest pain , no SOB, ECHO with pEF 60-65% with moderate LVH, no evidence of WMA, RVSP of 17 replace Mg repeat troponin in am check lipid panel mental status better, at baseline start BP management (will not start TUCKER as recommended for diabetic due to renal failure ), will start low dose beta-ebony with holding parameters pain management bowel regimen supportive care case discussed and evaluated by supervising physician Subjective Allergies: Coded Allergies: No Known Allergies (Unverified , 06/14/18) Subjective BS better, patient more awake, responsive leuk trending down , afebrile denies chest pain, SOB, palpitations, pulse ox stable on RA Objective Last 24 Hour Vital Signs Date Time Temp Pulse Resp B/P (MAP) Pulse Ox O2 Delivery O2 Flow Rate FiO2 06/16/18 04:00 98.9 94 17 140/90 (107) 95 06/16/18 04:00 100 06/16/18 00:00 98.1 99 20 149/90 (109) 95 06/16/18 00:00 Room Air 06/15/18 23:43 99 06/15/18 20:27 104 20 Room Air 21 06/15/18 20:00 98.6 102 20 164/96 (118) 96 06/15/18 20:00 Room Air 06/15/18 19:47 99 06/15/18 18:02 107 20 Room Air 21 06/15/18 16:00 98.1 111 20 149/103 (118) 97 06/15/18 16:00 99 06/15/18 16:00 Room Air 06/15/18 12:00 Room Air 06/15/18 12:00 98.1 109 24 140/111 (121) 93 06/15/18 12:00 117 06/15/18 08:00 111 06/15/18 08:00 97.7 112 22 139/101 (114) 96 06/15/18 08:00 Room Air Intake and Output 06/15/18 06/16/18 18:59 06:59 Intake Total 1250 ml 645 ml Balance 1250 ml 645 ml Intake Oral 350 ml IV Total 900 ml 645 ml # Voids 2 3 # Bowel Movements 4 General Appearance: no acute distress, other - AA male awake, alert, responsive HEENT: normocephalic, atraumatic, anicteric, mucous membranes moist Respiratory/Chest: lungs clear, no respiratory distress, no accessory muscle use Cardiovascular: normal rate, regular rhythm - SR on tele , no JVD Abdomen: normal bowel sounds, soft, non tender - obese Extremities: no edema, pedal pulses normal Neurologic/Psychiatric: no motor/sensory deficits, alert, oriented x 3, responsive Musculoskeletal: normal muscle bulk Microbiology Date/Time Source Procedure Growth Status 06/14/18 13:45 Blood Blood Culture - Preliminary NO GROWTH AFTER 24 HOURS Resulted 06/14/18 13:45 Blood Blood Culture - Preliminary NO GROWTH AFTER 24 HOURS Resulted 06/14/18 17:56 Nasal Nares MRSA Culture - Final NO METHICILLIN RESISTANT STAPH AUREUS... Complete 06/14/18 13:45 Nasal Nares Influenza Types A,B Antigen (NEIL) - Final Complete Current Medications Medications (Trade) Dose Ordered Sig/Indira Route PRN Reason Start Time Stop Time Status Last Admin Dose Admin Acetaminophen (Tylenol) 650 mg Q4H PRN ORAL Fever 06/16/18 01:15 07/14/18 17:14 Albuterol/ Ipratropium (Albuterol/ Ipratropium) 3 ml Q4H PRN HHN Shortness of Breath 06/16/18 01:15 06/19/18 17:14 Dextrose (Dextrose 50%) 25 ml Q30M PRN IV Hypoglycemia 06/16/18 01:30 07/15/18 09:29 Dextrose (Dextrose 50%) 50 ml Q30M PRN IV Hypoglycemia 06/16/18 01:30 07/15/18 09:29 Heparin Sodium (Porcine) (Heparin 5000 units/ml) 5,000 units EVERY 12 HOURS SUBQ 06/16/18 09:00 07/14/18 21:59 Insulin Aspart (NovoLOG) AC+HS SUBQ 06/16/18 06:30 07/15/18 00:59 Insulin Aspart (NovoLOG) 5 units NOVOTIAC SUBQ 06/16/18 11:50 07/15/18 11:49 UNV Insulin Detemir (Levemir) 15 units DAILY SUBQ 06/16/18 09:00 07/15/18 09:59 UNV Lorazepam (Ativan 2mg/ml 1ml) 0.5 mg Q4H PRN IV For Anxiety 06/16/18 02:15 06/22/18 02:14 Morphine Sulfate (Morphine Sulfate) 4 mg Q4H PRN IVP Severe Pain (Pain Scale 7-10) 06/16/18 01:15 06/21/18 17:14 Nitroglycerin (Ntg) 0.4 mg Q5M PRN SL Prn Chest Pain 06/16/18 01:15 07/14/18 17:14 Ondansetron HCl (Zofran) 4 mg Q6H PRN IVP Nausea & Vomiting 06/16/18 05:15 07/14/18 17:14 Polyethylene Glycol (Miralax) 17 gm DAILYPRN PRN ORAL Constipation 06/16/18 17:15 07/14/18 17:14 Sodium Chloride 1,000 ml @ 150 mls/hr Q6H40M IV 06/16/18 01:15 07/14/18 17:09 06/16/18 04:35 Katelyn Flores BOOT REPAIRER Jun 16, 2018 07:34
[2018-06-16 08:00] VITALS: BP 162/85
[2018-06-16 08:19] LABS: BASOPHILS % (AUTO) 0.9 % (0.0-2.0); EOSINOPHILS % (AUTO) 0.9 % (0.0-3.0); HEMOGLOBIN 12.4 G/DL (14.2-18.0); LYMPHOCYTES % (AUTO) 26.6 % (20.0-45.0); MEAN CORPUSCULAR VOLUME 95 FL (80-99); MONOCYTES % (AUTO) 6.8 % (1.0-10.0); NEUTROPHILS % (AUTO) 64.7 % (45.0-75.0); PLATELET COUNT 198 K/UL (150-450); RED CELL DISTRIBUTION WIDTH 12.4 % (11.6-14.8); WHITE BLOOD COUNT 9.4 K/UL (4.8-10.8)
[2018-06-16 08:35] LABS: ALANINE AMINOTRANSFERASE 22 U/L (12-78); ALBUMIN 2.8 G/DL (3.4-5.0); ALBUMIN/GLOBULIN RATIO 0.9 (1.0-2.7); ALKALINE PHOSPHATASE 74 U/L (46-116); ANION GAP 10 mmol/L (5-15); ASPARTATE AMINO TRANSFERASE 18 U/L (15-37); BILIRUBIN,TOTAL 0.7 MG/DL (0.2-1.0); BLOOD UREA NITROGEN 29 mg/dL (7-18); CALCIUM 8.5 MG/DL (8.5-10.1); CARBON DIOXIDE 23 MMOL/L (21-32); CHLORIDE 110 MMOL/L (98-107); CHOLESTEROL 123 MG/DL (< 200); CREATININE 1.5 MG/DL (0.55-1.30); PHOSPHORUS 2.6 MG/DL (2.5-4.9); POTASSIUM 3.6 MMOL/L (3.5-5.1); SODIUM 143 MMOL/L (136-145)
[2018-06-16 08:47] LABS: INR 1.1 (0.9-1.1)
[2018-06-16] MEDS ORDERED: Levemir Flexpen SUBQ SCH (09:00)
[2018-06-16] MEDS: Heparin 5000 units/ml inj SUBQ SCH ×2 (09:16→21:00)
--- NOTE | 2018-06-16 10:00 | NUR ---
NURSE NOTES: IV site to RH infiltrated ,IV removed,tried to reinsert IV x2 but unable to do it,mine car repairer Antoine and another RN tried to reinsert IV x3 but unsuccessful.will call Dr Culver to let him know..
[2018-06-16] MEDS: Levemir Flexpen SUBQ SCH (10:49)
[2018-06-16 12:00] VITALS: BP 165/99
--- NOTE | 2018-06-16 12:47 | NUR ---
CASE MANAGEMENT: REVIEW 78/M BIBA FROM HOME CC: AMS SI: DKA . SEPSIS . SASHA T 97.5 HR 134 RR 34 BP 94/70 SAT 97% NC/2L WBC 12.5 LACTIC ACID 6.00 GLUCOSE 542 BUN 92 CR 2.7 ABG: PH 7.321 PCO2 33.9 PO2 118.6 HCO3 17.1 IS: NS IVF BOLUS X1 CEFEPIME IV X1 NOVOLIN R IV X1 PATIENT ADMITTED TO STEP DOWN UNIT 06/14/2018 DCP: PATIENT IS FROM HOME
[2018-06-16 16:00] VITALS: BP 137/84
--- NOTE | 2018-06-16 16:21 | NUR ---
PT Note PT jolie completed, treatment initiated. Patient was able to ambulate with a FWW x 80 ft. Patient needs PT services to increase his muscle strength and balance to improve his safety in mobility and gait. Addendum: 06/16/18 at 1622 by WESLEY MONTAGUE PT Amended: Links added.
[2018-06-16] MEDS ORDERED: Miralax 17gm pkt ORAL PRN (17:15)
--- NOTE | 2018-06-16 17:49 | Internal Med Progress Note ---
Subjective Date of Service: Jun 16, 2018 Physician Name Mauro Medrano Attending Physician Tristan Culver MD Current Medications Medications (Trade) Dose Ordered Sig/Indira Route PRN Reason Start Time Stop Time Status Last Admin Dose Admin Acetaminophen (Tylenol) 650 mg Q4H PRN ORAL Fever 06/16/18 01:15 07/14/18 17:14 Albuterol/ Ipratropium (Albuterol/ Ipratropium) 3 ml Q4H PRN HHN Shortness of Breath 06/16/18 01:15 06/19/18 17:14 Dextrose (Dextrose 50%) 25 ml Q30M PRN IV Hypoglycemia 06/16/18 01:30 07/15/18 09:29 Dextrose (Dextrose 50%) 50 ml Q30M PRN IV Hypoglycemia 06/16/18 01:30 07/15/18 09:29 Heparin Sodium (Porcine) (Heparin 5000 units/ml) 5,000 units EVERY 12 HOURS SUBQ 06/16/18 09:00 07/14/18 21:59 06/16/18 09:16 Insulin Aspart (NovoLOG) AC+HS SUBQ 06/16/18 06:30 07/15/18 00:59 06/16/18 11:30 Insulin Aspart (NovoLOG) 5 units NOVOTIAC SUBQ 06/16/18 11:50 07/15/18 11:49 06/16/18 13:09 Insulin Detemir (Levemir) 15 units DAILY SUBQ 06/16/18 09:00 07/15/18 09:59 06/16/18 10:49 Lorazepam (Ativan 2mg/ml 1ml) 0.5 mg Q4H PRN IV For Anxiety 06/16/18 02:15 06/22/18 02:14 Magnesium Oxide (Mag-Ox 400mg) 400 mg THREE TIMES A DAY ORAL 06/16/18 18:00 06/18/18 13:01 Metoprolol Tartrate (Lopressor) 12.5 mg Q12HR ORAL 06/16/18 21:00 07/16/18 20:59 Morphine Sulfate (Morphine Sulfate) 4 mg Q4H PRN IVP Severe Pain (Pain Scale 7-10) 06/16/18 01:15 06/21/18 17:14 Nitroglycerin (Ntg) 0.4 mg Q5M PRN SL Prn Chest Pain 06/16/18 01:15 07/14/18 17:14 Ondansetron HCl (Zofran) 4 mg Q6H PRN IVP Nausea & Vomiting 06/16/18 05:15 07/14/18 17:14 Polyethylene Glycol (Miralax) 17 gm DAILYPRN PRN ORAL Constipation 06/16/18 17:15 07/14/18 17:14 Sodium Chloride 1,000 ml @ 100 mls/hr Q10H IV 06/16/18 10:00 07/16/18 09:59 Allergies: Coded Allergies: No Known Allergies (Unverified , 06/14/18) ROS Limited/Unobtainable: Yes Subjective 78 YO M with history of diabetes II admitted with hyperglycemic, hyperosmolar nonketotic coma. Cover for Int Med-Dr Culver. [facility] Objective Last Vital Signs Date Time Temp Pulse Resp B/P (MAP) Pulse Ox O2 Delivery O2 Flow Rate FiO2 06/16/18 16:00 98.1 85 20 137/84 (101) 95 06/16/18 09:00 Room Air 06/15/18 20:27 21 06/14/18 20:30 2.0 Laboratory Tests Test 06/16/18 07:55 White Blood Count 9.4 K/UL (4.8-10.8) Red Blood Count 3.90 M/UL (4.70-6.10) L Hemoglobin 12.4 G/DL (14.2-18.0) L Hematocrit 37.0 % (42.0-52.0) L Mean Corpuscular Volume 95 FL (80-99) Mean Corpuscular Hemoglobin 31.8 PG (27.0-31.0) H Mean Corpuscular Hemoglobin Concent 33.5 G/DL (32.0-36.0) Red Cell Distribution Width 12.4 % (11.6-14.8) Platelet Count 198 K/UL (150-450) Mean Platelet Volume 7.9 FL (6.5-10.1) Neutrophils (%) (Auto) 64.7 % (45.0-75.0) Lymphocytes (%) (Auto) 26.6 % (20.0-45.0) Monocytes (%) (Auto) 6.8 % (1.0-10.0) Eosinophils (%) (Auto) 0.9 % (0.0-3.0) Basophils (%) (Auto) 0.9 % (0.0-2.0) Prothrombin Time 11.4 SEC (9.30-11.50) Prothromb Time International Ratio 1.1 (0.9-1.1) Activated Partial Thromboplast Time 25 SEC (23-33) Sodium Level 143 MMOL/L (136-145) Potassium Level 3.6 MMOL/L (3.5-5.1) Chloride Level 110 MMOL/L (98-107) H Carbon Dioxide Level 23 MMOL/L (21-32) Anion Gap 10 mmol/L (5-15) Blood Urea Nitrogen 29 mg/dL (7-18) H Creatinine 1.5 MG/DL (0.55-1.30) H Estimat Glomerular Filtration Rate mL/min (>60) Glucose Level 128 MG/DL (74-106) H Calcium Level 8.5 MG/DL (8.5-10.1) Phosphorus Level 2.6 MG/DL (2.5-4.9) Magnesium Level 1.7 MG/DL (1.8-2.4) L Total Bilirubin 0.7 MG/DL (0.2-1.0) Aspartate Amino Transf (AST/SGOT) 18 U/L (15-37) Alanine Aminotransferase (ALT/SGPT) 22 U/L (12-78) Alkaline Phosphatase 74 U/L (46-116) Troponin I 0.139 ng/mL (0.000-0.056) Total Protein 6.0 G/DL (6.4-8.2) L Albumin 2.8 G/DL (3.4-5.0) L Globulin 3.2 g/dL Albumin/Globulin Ratio 0.9 (1.0-2.7) L Cholesterol Level 123 MG/DL (< 200) Microbiology Date/Time Source Procedure Growth Status 06/14/18 13:45 Blood Blood Culture - Preliminary NO GROWTH AFTER 24 HOURS Resulted 06/14/18 13:45 Blood Blood Culture - Preliminary NO GROWTH AFTER 24 HOURS Resulted 06/14/18 17:56 Nasal Nares MRSA Culture - Final NO METHICILLIN RESISTANT STAPH AUREUS... Complete 06/14/18 13:45 Nasal Nares Influenza Types A,B Antigen (NEIL) - Final Complete 06/14/18 17:56 Rectum VRE Culture - Final NO VANCOMYCIN RESISTANT ENTEROCOCCUS ... Resulted 06/14/18 17:56 Rectum Pending Resulted Intake and Output 06/15/18 06/16/18 19:00 07:00 Intake Total 1100 ml 795 ml Balance 1100 ml 795 ml Intake Oral 350 ml IV Total 750 ml 795 ml # Voids 2 3 # Bowel Movements 4 Objective PHYSICAL EXAMINATION: GENERAL: The patient is awake and responsive. No acute distress. HEAD AND NECK: Pupils are reactive to light. Extraocular movements intact. NECK: Supple. No JVD. LUNGS: Good air entry. No wheezing or rales. Decreased air in bases. HEART: S1, S2. Tachycardic. No murmur or gallop. ABDOMEN: Soft and nondistended. Morbidly obese. EXTREMITIES: No cyanosis, clubbing, or edema. NEUROLOGIC: DIRECTOR OF CONSULTING SERVICES II through XII are grossly intact. Motor is 5/5 in all extremities. Gait was not assessed due to the patient's status. RECTAL: Refused and deferred. GENITOURINARY: Refused and deferred. PSYCHIATRIC: Mood and affect is intact. Assessment/Plan Assessment/Plan ASSESSMENT: 1. Hyperglycemic hyperosmolar nonketotic coma. 2. Acute kidney injury with acute tubular necrosis on chronic kidney disease. 3. Lactic acidosis. 4. Dehydration. 5. Tachycardia. 6. Altered mental status, most likely secondary to toxic metabolic encephalopathy as a result of hyperglycemia and dehydration. 7. Morbid obesity. 8. Possible obstructive sleep apnea, presumably. PLAN: 1. [facility] status. 2. Continue insulin and aggressive IV hydration per endocrinology 3. We will monitor blood glucose very closely. 4. Code status is Full Code. 5. DVT prophylaxis with heparin subcutaneous. 6. We will consider getting PT, OT evaluation once the patient's status improved. Mauro Medrano MD Jun 16, 2018 17:49
[2018-06-16] MEDS: Magnesium Oxide 400mg tab ORAL SCH (17:53)
--- NOTE | 2018-06-16 18:00 | NUR ---
NURSE NOTES: pt resting in bed awake alert,with family members and visitors at bedside,no distress presented.
--- NOTE | 2018-06-16 19:05 | NUR ---
HAND-OFF: Report given to Sachi Wilder RN.
--- NOTE | 2018-06-16 19:11 | NUR ---
NURSE NOTES: Received patient from Jessica Ridley RN. Will continue plan of care.
--- NOTE | 2018-06-16 19:35 | NUR ---
NURSE NOTES: Per day shift nurse; previous IV access became infiltrated. Another IV access was attempted x3 but unsuccessful. Vein finder and other interventions where also used. Dr. Culevr is aware and does not want central line placement. Medication (Mg Oxide) changed to PO. Will attempt to reinsert IV tonight.
[2018-06-16 20:00] VITALS: BP 169/99
[2018-06-16] MEDS ORDERED: Metoprolol Tartrate 12.5mg TAB ORAL SCH (21:00)
--- NOTE | 2018-06-16 21:00 | NUR ---
NURSE NOTES: Transferred patient to TEL 2E room 209-1. Patient is stable. Report given to LELE Arita.
--- NOTE | 2018-06-16 21:05 | NUR ---
NURSE NOTES: Received report from Dao Wilder RN. regarding patients transfer to TELE floor. Belongings checked with patient at bedside, everything present and accounted for. Head to toe assessment done. Will try to start new IV line d/t current line being infiltrated, MD aware and notified. Orders transferred from [facility] to TELE floor. Patient is AAO x4 with no complaints of acute pain or discomfort noted at this time. Safety precaution in place; siderails x3 up, call light within reach, bed in lowest position, brakes and alarm on at all times. Needs and wants anticipated and attended, will continue plan of care and monitor for any changes noted.
[2018-06-16] MEDS: Metoprolol Tartrate 12.5mg TAB ORAL SCH (23:43)
[2018-06-17] VITALS: BP 135/69
[2018-06-17] MEDS: NovoLOG Insulin Flexpen SUBQ SCH ×9 (00:21→21:21)
--- NOTE | 2018-06-17 02:33 | NUR ---
NURSE NOTES: Patient in bed asleep with no complaints of acute pain at this time. Will continue to monitor
[2018-06-17 04:00] VITALS: BP 139/74
--- NOTE | 2018-06-17 04:00 | NUR ---
NURSE NOTES: Patient hard stick, unable to obtain IV access. aware. Will try again during shift
--- NOTE | 2018-06-17 07:18 | NUR ---
HAND-OFF: Report given to Dao Lawson RN. Patient in stable condition, endorsed plan of care.
[2018-06-17 07:35] LABS: BASOPHILS % (AUTO) 1.2 % (0.0-2.0); EOSINOPHILS % (AUTO) 1.6 % (0.0-3.0); HEMOGLOBIN 12.1 G/DL (14.2-18.0); LYMPHOCYTES % (AUTO) 37.1 % (20.0-45.0); MEAN CORPUSCULAR VOLUME 95 FL (80-99); MONOCYTES % (AUTO) 10.5 % (1.0-10.0); NEUTROPHILS % (AUTO) 49.8 % (45.0-75.0); PLATELET COUNT 199 K/UL (150-450); RED CELL DISTRIBUTION WIDTH 11.9 % (11.6-14.8); WHITE BLOOD COUNT 7.8 K/UL (4.8-10.8)
--- NOTE | 2018-06-17 07:52 | General Progress Note ---
Assessment/Plan Problem List: (1) Lactic acidosis ICD Codes: E87.2 - Acidosis SNOMED: 55315907 (2) Diabetes mellitus ICD Codes: E11.9 - Type 2 diabetes mellitus without complications SNOMED: 74548455 (3) Hypertension ICD Codes: I10 - Essential (primary) hypertension SNOMED: 76148762 (4) Acute encephalopathy ICD Codes: G93.40 - Encephalopathy, unspecified SNOMED: 95941894, 003110915 (5) Acute renal failure ICD Codes: N17.9 - Acute kidney failure, unspecified SNOMED: 13348458 Assessment/Plan continue Levemir 15 units daily continue Novolog 5 units ac tid continue NISS ac / hs Subjective Allergies: Coded Allergies: No Known Allergies (Unverified , 06/14/18) All Systems: reviewed and negative except above Subjective events noted Item Value Date Time Bedside Blood Glucose 100 mg/dl 06/17/18 0640 Bedside Blood Glucose 206 mg/dl H 06/17/18 0021 Bedside Blood Glucose 206 mg/dl H 06/16/18 2100 Bedside Blood Glucose 114 mg/dl 06/16/18 1750 Bedside Blood Glucose 170 mg/dl H 06/16/18 1309 Bedside Blood Glucose 195 mg/dl H 06/16/18 1049 Bedside Blood Glucose 108 mg/dl 06/16/18 0630 Objective Last 24 Hour Vital Signs Date Time Temp Pulse Resp B/P (MAP) Pulse Ox O2 Delivery O2 Flow Rate FiO2 06/17/18 04:00 63 06/17/18 04:00 97.1 74 20 139/74 (95) 97 06/17/18 00:00 96.1 66 20 135/69 (91) 97 06/17/18 00:00 72 06/16/18 23:43 78 156/78 06/16/18 21:00 Room Air 06/16/18 20:00 98.4 96 20 169/99 (122) 100 06/16/18 19:42 95 06/16/18 16:00 73 06/16/18 16:00 98.1 85 20 137/84 (101) 95 06/16/18 12:00 97.2 72 18 165/99 (121) 97 06/16/18 12:00 89 06/16/18 09:00 Room Air 06/16/18 08:00 96 06/16/18 08:00 98.1 104 20 162/85 (110) 94 Intake and Output 06/16/18 06/17/18 19:00 07:00 Intake Total 480 ml 320 ml Output Total 600 ml Balance 480 ml -280 ml Intake Oral 480 ml 320 ml Output Urine Total 600 ml # Voids 4 Laboratory Tests 06/16/18 07:55: White Blood Count 9.4, Red Blood Count 3.90L, Hemoglobin 12.4L, Hematocrit 37.0L , Mean Corpuscular Volume 95, Mean Corpuscular Hemoglobin 31.8H, Mean Corpuscular Hemoglobin Concent 33.5, Red Cell Distribution Width 12.4, Platelet Count 198, Mean Platelet Volume 7.9, Neutrophils (%) (Auto) 64.7, Lymphocytes (% ) (Auto) 26.6, Monocytes (%) (Auto) 6.8, Eosinophils (%) (Auto) 0.9, Basophils ( %) (Auto) 0.9, Prothrombin Time 11.4, Prothromb Time International Ratio 1.1, Activated Partial Thromboplast Time 25, Sodium Level 143, Potassium Level 3.6, Chloride Level 110H, Carbon Dioxide Level 23, Anion Gap 10, Blood Urea Nitrogen 29H, Creatinine 1.5H, Estimat Glomerular Filtration Rate , Glucose Level 128H, Calcium Level 8.5, Phosphorus Level 2.6, Magnesium Level 1.7L, Total Bilirubin 0.7, Aspartate Amino Transf (AST/SGOT) 18, Alanine Aminotransferase (ALT/SGPT) 22, Alkaline Phosphatase 74, Troponin I 0.139H, Total Protein 6.0L, Albumin 2.8L , Globulin 3.2, Albumin/Globulin Ratio 0.9L, Cholesterol Level 123 06/17/18 05:45: White Blood Count [Pending], Red Blood Count [Pending], Hemoglobin [Pending], Hematocrit [Pending], Mean Corpuscular Volume [Pending], Mean Corpuscular Hemoglobin [Pending], Mean Corpuscular Hemoglobin Concent [Pending], Red Cell Distribution Width [Pending], Platelet Count [Pending], Mean Platelet Volume [ Pending], Neutrophils (%) (Auto) [Pending], Lymphocytes (%) (Auto) [Pending], Monocytes (%) (Auto) [Pending], Eosinophils (%) (Auto) [Pending], Basophils (%) (Auto) [Pending], Sodium Level [Pending], Potassium Level [Pending], Chloride Level [Pending], Carbon Dioxide Level [Pending], Blood Urea Nitrogen [Pending], Creatinine [Pending], Estimat Glomerular Filtration Rate [Pending], Glucose Level [Pending], Calcium Level [Pending], Troponin I [Pending], Cholesterol Level [Pending], Hemoglobin A1c 8.9H, Triglycerides Level [Pending], LDL Cholesterol [Pending], HDL Cholesterol [Pending], Cholesterol/HDL Ratio [Pending ] Height (Feet): 5 Height (Inches): 10.00 Weight (Pounds): 219 General Appearance: no apparent distress Neck: normal alignment Cardiovascular: normal rate Respiratory/Chest: lungs clear Abdomen: normal bowel sounds Pelvis: normal external exam Objective Current Medications Medications (Trade) Dose Ordered Sig/Indira Route PRN Reason Start Time Stop Time Status Last Admin Dose Admin Acetaminophen (Tylenol) 650 mg Q4H PRN ORAL Fever 06/16/18 01:15 07/14/18 17:14 Albuterol/ Ipratropium (Albuterol/ Ipratropium) 3 ml Q4H PRN HHN Shortness of Breath 06/16/18 01:15 06/19/18 17:14 Dextrose (Dextrose 50%) 25 ml Q30M PRN IV Hypoglycemia 06/16/18 01:30 07/15/18 09:29 Dextrose (Dextrose 50%) 50 ml Q30M PRN IV Hypoglycemia 06/16/18 01:30 07/15/18 09:29 Heparin Sodium (Porcine) (Heparin 5000 units/ml) 5,000 units EVERY 12 HOURS SUBQ 06/16/18 09:00 07/14/18 21:59 06/16/18 09:16 Insulin Aspart (NovoLOG) AC+HS SUBQ 06/16/18 06:30 07/15/18 00:59 06/17/18 00:21 Insulin Aspart (NovoLOG) 5 units NOVOTIAC SUBQ 06/16/18 11:50 07/15/18 11:49 06/17/18 06:40 Insulin Detemir (Levemir) 15 units DAILY SUBQ 06/16/18 09:00 07/15/18 09:59 06/16/18 10:49 Lorazepam (Ativan 2mg/ml 1ml) 0.5 mg Q4H PRN IV For Anxiety 06/16/18 02:15 06/22/18 02:14 Magnesium Oxide (Mag-Ox 400mg) 400 mg THREE TIMES A DAY ORAL 06/16/18 18:00 06/18/18 13:01 06/16/18 17:53 Metoprolol Tartrate (Lopressor) 12.5 mg Q12HR ORAL 06/16/18 23:00 07/16/18 22:59 06/16/18 23:43 Morphine Sulfate (Morphine Sulfate) 4 mg Q4H PRN IVP Severe Pain (Pain Scale 7-10) 06/16/18 01:15 06/21/18 17:14 Nitroglycerin (Ntg) 0.4 mg Q5M PRN SL Prn Chest Pain 06/16/18 01:15 07/14/18 17:14 Ondansetron HCl (Zofran) 4 mg Q6H PRN IVP Nausea & Vomiting 06/16/18 05:15 07/14/18 17:14 Polyethylene Glycol (Miralax) 17 gm DAILYPRN PRN ORAL Constipation 06/16/18 17:15 07/14/18 17:14 Sodium Chloride 1,000 ml @ 100 mls/hr Q10H IV 06/16/18 10:00 07/16/18 09:59 Marc Moon MD Jun 17, 2018 07:52
[2018-06-17 07:58] LABS: ANION GAP 9 mmol/L (5-15); BLOOD UREA NITROGEN 21 mg/dL (7-18); CALCIUM 8.4 MG/DL (8.5-10.1); CARBON DIOXIDE 23 MMOL/L (21-32); CHLORIDE 108 MMOL/L (98-107); CHOLESTEROL 118 MG/DL (< 200); CREATININE 1.5 MG/DL (0.55-1.30); HDL CHOLESTEROL 39 MG/DL (40-60); POTASSIUM 3.3 MMOL/L (3.5-5.1); SODIUM 140 MMOL/L (136-145); TRIGLYCERIDES 86 MG/DL (30-150)
[2018-06-17 08:00] VITALS: BP 158/74
--- NOTE | 2018-06-17 09:06 | Pulmonology Progress Note ---
Assessment/Plan Assessment/Plan ASSESSMENT Acute metabolic encephalopathy ( due to severe hyperglycemia and dehydration) Hyperosmolar coma Hyperglycemia with hx of DM SASHA, possible ATN ( in setting of hypotension) on CRI Lactic acidosis HTN Dehydration. Morbid obesity. Probably LEIGHTON E/lytes abnormality ( low K, low Mg) PLAN OF CARE tele press assistant follows BS management with long-acting insulin and short acting premeal insulin, SSI prn , HgA1c -8.9. patient will need further optimization of antiglycemic regimen as outpt as well as compliance with medications and diet IVF, DVT prophylaxis O2 HHN prn monitor renal parameters and e/lytes, replace lytes prn (K today) creatinine down from 2.7-1.5 likely acute on chronic renal insufficiency brought by dehydration and diabetic ketoacidosis and hyperglycemia will stop IVF rate since no further effect on creat- elevated troponin likely due to renal failure /leaking , ECG no acute ischemic changes SR on tele patient denies any cardiac complaints: no chest pain , no SOB, ECHO with pEF 60-65% with moderate LVH, no evidence of WMA, RVSP of 17 lipid panel stable ental status better, at baseline started on BB for BP management with holding parameters ( no TUCKER as recommended for diabetic due to renal failure ), pain management bowel regimen supportive care case discussed and evaluated by supervising physician Subjective Allergies: Coded Allergies: No Known Allergies (Unverified , 06/14/18) Subjective BS better, patient awake, responsive leuk resolved, , afebrile denies chest pain, SOB, palpitations, pulse ox stable on RA K-3.3 Objective Last 24 Hour Vital Signs Date Time Temp Pulse Resp B/P (MAP) Pulse Ox O2 Delivery O2 Flow Rate FiO2 06/17/18 08:00 98.0 99 18 158/74 (102) 95 06/17/18 04:00 63 06/17/18 04:00 97.1 74 20 139/74 (95) 97 06/17/18 00:00 96.1 66 20 135/69 (91) 97 06/17/18 00:00 72 06/16/18 23:43 78 156/78 06/16/18 21:00 Room Air 06/16/18 20:00 98.4 96 20 169/99 (122) 100 06/16/18 19:42 95 06/16/18 16:00 73 06/16/18 16:00 98.1 85 20 137/84 (101) 95 06/16/18 12:00 97.2 72 18 165/99 (121) 97 06/16/18 12:00 89 Intake and Output 06/16/18 06/17/18 19:00 07:00 Intake Total 480 ml 320 ml Output Total 600 ml Balance 480 ml -280 ml Intake Oral 480 ml 320 ml Output Urine Total 600 ml # Voids 4 Objective General Appearance: no acute distress, AA male awake, alert, responsive HEENT: normocephalic, atraumatic, anicteric, mucous membranes moist Respiratory/Chest: lungs clear, no respiratory distress, no accessory muscle use Cardiovascular: normal rate, regular rhythm - SR on tele , no JVD Abdomen: normal bowel sounds, soft, non tender - obese Extremities: no edema, pedal pulses normal Neurologic/Psychiatric: no motor/sensory deficits, alert, oriented x 3, responsive Musculoskeletal: normal muscle bulk Microbiology Date/Time Source Procedure Growth Status 06/14/18 13:45 Blood Blood Culture - Preliminary NO GROWTH AFTER 48 HOURS Resulted 06/14/18 13:45 Blood Blood Culture - Preliminary NO GROWTH AFTER 48 HOURS Resulted 06/14/18 17:56 Nasal Nares MRSA Culture - Final NO METHICILLIN RESISTANT STAPH AUREUS... Complete 06/14/18 13:45 Nasal Nares Influenza Types A,B Antigen (NEIL) - Final Complete 06/14/18 17:56 Rectum VRE Culture - Final NO VANCOMYCIN RESISTANT ENTEROCOCCUS ... Complete 06/14/18 17:56 Rectum - Final NO CARBAPENEM-RESISTANT ENTEROBACTERI... Complete Laboratory Tests 06/17/18 05:45: White Blood Count 7.8, Red Blood Count 3.70L, Hemoglobin 12.1L, Hematocrit 35.0L , Mean Corpuscular Volume 95, Mean Corpuscular Hemoglobin 32.6H, Mean Corpuscular Hemoglobin Concent 34.5, Red Cell Distribution Width 11.9, Platelet Count 199, Mean Platelet Volume 7.2, Neutrophils (%) (Auto) 49.8, Lymphocytes (% ) (Auto) 37.1, Monocytes (%) (Auto) 10.5H, Eosinophils (%) (Auto) 1.6, Basophils (%) (Auto) 1.2, Sodium Level 140, Potassium Level 3.3L, Chloride Level 108H, Carbon Dioxide Level 23, Anion Gap 9, Blood Urea Nitrogen 21H, Creatinine 1.5H, Estimat Glomerular Filtration Rate , Glucose Level 87, Hemoglobin A1c 8.9H, Calcium Level 8.4L, Troponin I 0.113H, Triglycerides Level 86, Cholesterol Level 118, LDL Cholesterol 65, HDL Cholesterol 39L, Cholesterol/ HDL Ratio 3.0L Current Medications Medications (Trade) Dose Ordered Sig/Indira Route PRN Reason Start Time Stop Time Status Last Admin Dose Admin Acetaminophen (Tylenol) 650 mg Q4H PRN ORAL Fever 06/16/18 01:15 07/14/18 17:14 Albuterol/ Ipratropium (Albuterol/ Ipratropium) 3 ml Q4H PRN HHN Shortness of Breath 06/16/18 01:15 06/19/18 17:14 Dextrose (Dextrose 50%) 25 ml Q30M PRN IV Hypoglycemia 06/16/18 01:30 07/15/18 09:29 Dextrose (Dextrose 50%) 50 ml Q30M PRN IV Hypoglycemia 06/16/18 01:30 07/15/18 09:29 Heparin Sodium (Porcine) (Heparin 5000 units/ml) 5,000 units EVERY 12 HOURS SUBQ 06/16/18 09:00 07/14/18 21:59 06/16/18 09:16 Insulin Aspart (NovoLOG) AC+HS SUBQ 06/16/18 06:30 07/15/18 00:59 06/17/18 00:21 Insulin Aspart (NovoLOG) 5 units NOVOTIAC SUBQ 06/16/18 11:50 07/15/18 11:49 06/17/18 06:40 Insulin Detemir (Levemir) 15 units DAILY SUBQ 06/16/18 09:00 07/15/18 09:59 06/16/18 10:49 Lorazepam (Ativan 2mg/ml 1ml) 0.5 mg Q4H PRN IV For Anxiety 06/16/18 02:15 06/22/18 02:14 Magnesium Oxide (Mag-Ox 400mg) 400 mg THREE TIMES A DAY ORAL 06/16/18 18:00 06/18/18 13:01 06/16/18 17:53 Metoprolol Tartrate (Lopressor) 12.5 mg Q12HR ORAL 06/16/18 23:00 07/16/18 22:59 06/16/18 23:43 Morphine Sulfate (Morphine Sulfate) 4 mg Q4H PRN IVP Severe Pain (Pain Scale 7-10) 06/16/18 01:15 06/21/18 17:14 Nitroglycerin (Ntg) 0.4 mg Q5M PRN SL Prn Chest Pain 06/16/18 01:15 07/14/18 17:14 Ondansetron HCl (Zofran) 4 mg Q6H PRN IVP Nausea & Vomiting 06/16/18 05:15 07/14/18 17:14 Polyethylene Glycol (Miralax) 17 gm DAILYPRN PRN ORAL Constipation 06/16/18 17:15 07/14/18 17:14 Sodium Chloride 1,000 ml @ 100 mls/hr Q10H IV 06/16/18 10:00 07/16/18 09:59 Katelyn Flores COMMISSIONS SPECIALIST Jun 17, 2018 09:06
[2018-06-17] MEDS: Magnesium Oxide 400mg tab ORAL SCH ×3 (10:09→16:23)
[2018-06-17] MEDS: Metoprolol Tartrate 12.5mg TAB ORAL SCH ×2 (10:09→21:23)
[2018-06-17] MEDS: Heparin 5000 units/ml inj SUBQ SCH ×2 (10:11→21:17)
[2018-06-17] MEDS: Levemir Flexpen SUBQ SCH (10:17)
[2018-06-17 12:00] VITALS: BP 135/87
[2018-06-17 15:27] VITALS: BP 114/81
--- NOTE | 2018-06-17 18:19 | Internal Med Progress Note ---
Subjective Date of Service: Jun 17, 2018 Physician Name Mauro Medrano Attending Physician Tristan Culver MD Current Medications Medications (Trade) Dose Ordered Sig/Indira Route PRN Reason Start Time Stop Time Status Last Admin Dose Admin Acetaminophen (Tylenol) 650 mg Q4H PRN ORAL Fever 06/16/18 01:15 07/14/18 17:14 Albuterol/ Ipratropium (Albuterol/ Ipratropium) 3 ml Q4H PRN HHN Shortness of Breath 06/16/18 01:15 06/19/18 17:14 Dextrose (Dextrose 50%) 25 ml Q30M PRN IV Hypoglycemia 06/16/18 01:30 07/15/18 09:29 Dextrose (Dextrose 50%) 50 ml Q30M PRN IV Hypoglycemia 06/16/18 01:30 07/15/18 09:29 Heparin Sodium (Porcine) (Heparin 5000 units/ml) 5,000 units EVERY 12 HOURS SUBQ 06/16/18 09:00 07/14/18 21:59 06/17/18 10:11 Insulin Aspart (NovoLOG) AC+HS SUBQ 06/16/18 06:30 07/15/18 00:59 06/17/18 16:26 Insulin Aspart (NovoLOG) 5 units NOVOTIAC SUBQ 06/16/18 11:50 07/15/18 11:49 06/17/18 16:25 Insulin Detemir (Levemir) 15 units DAILY SUBQ 06/16/18 09:00 07/15/18 09:59 06/17/18 10:17 Lorazepam (Ativan 2mg/ml 1ml) 0.5 mg Q4H PRN IV For Anxiety 06/16/18 02:15 06/22/18 02:14 Magnesium Oxide (Mag-Ox 400mg) 400 mg THREE TIMES A DAY ORAL 06/16/18 18:00 06/18/18 13:01 06/17/18 16:23 Metoprolol Tartrate (Lopressor) 12.5 mg Q12HR ORAL 06/16/18 23:00 07/16/18 22:59 06/17/18 10:09 Morphine Sulfate (Morphine Sulfate) 4 mg Q4H PRN IVP Severe Pain (Pain Scale 7-10) 06/16/18 01:15 06/21/18 17:14 Nitroglycerin (Ntg) 0.4 mg Q5M PRN SL Prn Chest Pain 06/16/18 01:15 07/14/18 17:14 Ondansetron HCl (Zofran) 4 mg Q6H PRN IVP Nausea & Vomiting 06/16/18 05:15 07/14/18 17:14 Polyethylene Glycol (Miralax) 17 gm DAILYPRN PRN ORAL Constipation 06/16/18 17:15 07/14/18 17:14 Allergies: Coded Allergies: No Known Allergies (Unverified , 06/14/18) ROS Limited/Unobtainable: No Constitutional: Reports: no symptoms HEENT: Reports: no symptoms Cardiovascular: Reports: no symptoms Respiratory: Reports: no symptoms Gastrointestinal/Abdominal: Reports: no symptoms Genitourinary: Reports: no symptoms Neurologic/Psychiatric: Reports: no symptoms Subjective 78 YO M with history of diabetes II admitted with hyperglycemic, hyperosmolar nonketotic coma. Cover for Int Med-Dr Culver. TALYA Objective Last Vital Signs Date Time Temp Pulse Resp B/P (MAP) Pulse Ox O2 Delivery O2 Flow Rate FiO2 06/17/18 16:00 97 06/17/18 15:27 97.9 20 114/81 (92) 95 06/17/18 09:00 Room Air 06/15/18 20:27 21 06/14/18 20:30 2.0 Laboratory Tests Test 06/17/18 05:45 White Blood Count 7.8 K/UL (4.8-10.8) Red Blood Count 3.70 M/UL (4.70-6.10) L Hemoglobin 12.1 G/DL (14.2-18.0) L Hematocrit 35.0 % (42.0-52.0) L Mean Corpuscular Volume 95 FL (80-99) Mean Corpuscular Hemoglobin 32.6 PG (27.0-31.0) H Mean Corpuscular Hemoglobin Concent 34.5 G/DL (32.0-36.0) Red Cell Distribution Width 11.9 % (11.6-14.8) Platelet Count 199 K/UL (150-450) Mean Platelet Volume 7.2 FL (6.5-10.1) Neutrophils (%) (Auto) 49.8 % (45.0-75.0) Lymphocytes (%) (Auto) 37.1 % (20.0-45.0) Monocytes (%) (Auto) 10.5 % (1.0-10.0) H Eosinophils (%) (Auto) 1.6 % (0.0-3.0) Basophils (%) (Auto) 1.2 % (0.0-2.0) Sodium Level 140 MMOL/L (136-145) Potassium Level 3.3 MMOL/L (3.5-5.1) L Chloride Level 108 MMOL/L (98-107) H Carbon Dioxide Level 23 MMOL/L (21-32) Anion Gap 9 mmol/L (5-15) Blood Urea Nitrogen 21 mg/dL (7-18) H Creatinine 1.5 MG/DL (0.55-1.30) H Estimat Glomerular Filtration Rate mL/min (>60) Glucose Level 87 MG/DL (74-106) Hemoglobin A1c 8.9 % (4.3-6.0) H Calcium Level 8.4 MG/DL (8.5-10.1) L Troponin I 0.113 ng/mL (0.000-0.056) Triglycerides Level 86 MG/DL (30-150) Cholesterol Level 118 MG/DL (< 200) LDL Cholesterol 65 mg/dL (<100) HDL Cholesterol 39 MG/DL (40-60) L Cholesterol/HDL Ratio 3.0 (3.3-4.4) L Intake and Output 06/16/18 06/17/18 19:00 07:00 Intake Total 480 ml 320 ml Output Total 600 ml Balance 480 ml -280 ml Intake Oral 480 ml 320 ml Output Urine Total 600 ml # Voids 4 Objective PHYSICAL EXAMINATION: GENERAL: The patient is awake and responsive. No acute distress. HEAD AND NECK: Pupils are reactive to light. Extraocular movements intact. NECK: Supple. No JVD. LUNGS: Good air entry. No wheezing or rales. Decreased air in bases. HEART: S1, S2. Tachycardic. No murmur or gallop. ABDOMEN: Soft and nondistended. Morbidly obese. EXTREMITIES: No cyanosis, clubbing, or edema. NEUROLOGIC: PETS AND PET SUPPLIES SALESPERSON II through XII are grossly intact. Motor is 5/5 in all extremities. Gait was not assessed due to the patient's status. RECTAL: Refused and deferred. GENITOURINARY: Refused and deferred. PSYCHIATRIC: Mood and affect is intact. Assessment/Plan Assessment/Plan ASSESSMENT: 1. Hyperglycemic hyperosmolar nonketotic coma. 2. Acute kidney injury with acute tubular necrosis on chronic kidney disease. 3. Lactic acidosis. 4. Dehydration. 5. Tachycardia. 6. Altered mental status, most likely secondary to toxic metabolic encephalopathy as a result of hyperglycemia and dehydration. 7. Morbid obesity. 8. Possible obstructive sleep apnea, presumably. PLAN: 1. Med/surg status. 2. Continue insulin and aggressive IV hydration per endocrinology 3. We will monitor blood glucose very closely. 4. Code status is Full Code. 5. DVT prophylaxis with heparin subcutaneous. 6. PT, OT evaluation Mauro Medrano MD Jun 17, 2018 18:19
--- NOTE | 2018-06-17 19:31 | NUR ---
HAND-OFF: Report given to Kevin ROYAL.
--- NOTE | 2018-06-17 19:32 | NUR ---
NURSE NOTES: Report received from LELE Kim. Observed pt sitting on the bed. A/O x4. Denies any pain at this time. SR with screw remover. On room air with no signs of sob noted. IV on R H 20G, intact and patent. Pt is ambulatory and gait stable. Bed in the lowest position. Side rails up x2. Call light within reach. Will continue to monitor. Addendum: 06/18/18 at 0006 by Yolande Brown RN IV R H, infiltrated.
[2018-06-17 20:00] VITALS: BP 138/68
[2018-06-18] VITALS: BP 146/98
--- NOTE | 2018-06-18 00:06 | NUR ---
NURSE NOTES: Asked to put an IV and pt refused to be poked in the middle of night. Will continue to monitor.
--- NOTE | 2018-06-18 03:55 | NUR ---
NURSE NOTES: Observed pt sleeping on the bed. SR with cardiac cath lab technologist. No distress noted at this time. Will continue to monitor.
[2018-06-18 04:00] VITALS: BP 142/92
[2018-06-18] MEDS: NovoLOG Insulin Flexpen SUBQ SCH ×3 (06:30→11:52)
--- NOTE | 2018-06-18 06:38 | General Progress Note ---
Assessment/Plan Problem List: (1) Lactic acidosis ICD Codes: E87.2 - Acidosis SNOMED: 26133130 (2) Diabetes mellitus ICD Codes: E11.9 - Type 2 diabetes mellitus without complications SNOMED: 34403942 (3) Hypertension ICD Codes: I10 - Essential (primary) hypertension SNOMED: 09911594 (4) Acute encephalopathy ICD Codes: G93.40 - Encephalopathy, unspecified SNOMED: 23208587, 253580818 (5) Acute renal failure ICD Codes: N17.9 - Acute kidney failure, unspecified SNOMED: 71568538 Assessment/Plan continue Levemir 15 units daily continue Novolog 5 units ac tid continue NISS ac / hs Subjective Allergies: Coded Allergies: No Known Allergies (Unverified , 06/14/18) All Systems: reviewed and negative except above Subjective events noted Item Value Date Time Bedside Blood Glucose 86 mg/dl 06/18/18 0630 Bedside Blood Glucose 207 mg/dl H 06/17/18 2121 Bedside Blood Glucose 183 mg/dl H 06/17/18 1626 Bedside Blood Glucose 190 mg/dl H 06/17/18 1153 Bedside Blood Glucose 186 mg/dl H 06/17/18 1017 Bedside Blood Glucose 100 mg/dl 06/17/18 0640 Objective Last 24 Hour Vital Signs Date Time Temp Pulse Resp B/P (MAP) Pulse Ox O2 Delivery O2 Flow Rate FiO2 06/18/18 04:29 63 18 Room Air 21 06/18/18 04:00 96.3 59 16 142/92 (109) 97 06/18/18 04:00 57 06/18/18 00:00 97.0 65 17 146/98 (114) 98 06/18/18 00:00 72 06/17/18 21:23 87 138/68 06/17/18 21:00 Room Air 06/17/18 20:00 83 06/17/18 20:00 97.5 87 17 138/68 (91) 96 06/17/18 16:00 97 06/17/18 15:27 97.9 68 20 114/81 (92) 95 06/17/18 12:00 75 06/17/18 12:00 97.4 66 18 135/87 (103) 97 06/17/18 10:09 99 158/74 06/17/18 09:00 Room Air 06/17/18 08:00 98.0 99 18 158/74 (102) 95 06/17/18 08:00 97 Intake and Output 06/17/18 06/18/18 19:00 07:00 Intake Total 600 ml Balance 600 ml Intake Oral 600 ml # Voids 3 3 Height (Feet): 5 Height (Inches): 10.00 Weight (Pounds): 219 General Appearance: no apparent distress Neck: normal alignment Cardiovascular: normal rate Respiratory/Chest: lungs clear Abdomen: normal bowel sounds Objective Current Medications Medications (Trade) Dose Ordered Sig/Indira Route PRN Reason Start Time Stop Time Status Last Admin Dose Admin Acetaminophen (Tylenol) 650 mg Q4H PRN ORAL Fever 06/16/18 01:15 07/14/18 17:14 Albuterol/ Ipratropium (Albuterol/ Ipratropium) 3 ml Q4H PRN HHN Shortness of Breath 06/16/18 01:15 06/19/18 17:14 Dextrose (Dextrose 50%) 25 ml Q30M PRN IV Hypoglycemia 06/16/18 01:30 07/15/18 09:29 Dextrose (Dextrose 50%) 50 ml Q30M PRN IV Hypoglycemia 06/16/18 01:30 07/15/18 09:29 Heparin Sodium (Porcine) (Heparin 5000 units/ml) 5,000 units EVERY 12 HOURS SUBQ 06/16/18 09:00 07/14/18 21:59 06/17/18 21:17 Insulin Aspart (NovoLOG) AC+HS SUBQ 06/16/18 06:30 07/15/18 00:59 06/17/18 21:21 Insulin Aspart (NovoLOG) 5 units NOVOTIAC SUBQ 06/16/18 11:50 07/15/18 11:49 06/17/18 21:18 Insulin Detemir (Levemir) 15 units DAILY SUBQ 06/16/18 09:00 07/15/18 09:59 06/17/18 10:17 Lorazepam (Ativan 2mg/ml 1ml) 0.5 mg Q4H PRN IV For Anxiety 06/16/18 02:15 06/22/18 02:14 Magnesium Oxide (Mag-Ox 400mg) 400 mg THREE TIMES A DAY ORAL 06/16/18 18:00 06/18/18 13:01 06/17/18 16:23 Metoprolol Tartrate (Lopressor) 12.5 mg Q12HR ORAL 06/16/18 23:00 07/16/18 22:59 06/17/18 21:23 Morphine Sulfate (Morphine Sulfate) 4 mg Q4H PRN IVP Severe Pain (Pain Scale 7-10) 06/16/18 01:15 06/21/18 17:14 Nitroglycerin (Ntg) 0.4 mg Q5M PRN SL Prn Chest Pain 06/16/18 01:15 07/14/18 17:14 Ondansetron HCl (Zofran) 4 mg Q6H PRN IVP Nausea & Vomiting 06/16/18 05:15 07/14/18 17:14 Polyethylene Glycol (Miralax) 17 gm DAILYPRN PRN ORAL Constipation 06/16/18 17:15 07/14/18 17:14 Marc Moon MD Jun 18, 2018 06:38
--- NOTE | 2018-06-18 07:30 | NUR ---
NURSE NOTES: Received report from Yolande ROYAL. Pt is awake, alert, oriented x4, sitting up in bed, having breakfast. Pt is on room air with no respiratory distress. Denies pain or any other discomfort at this time. Skin is intact. Urinal at bedside. Pt states he uses a cane at home for long-distance ambulation, per report from woolen suiting shrinker RN, pt was observed ambulating to restroom with steady gait. Pt has #22G saline lock for IV access on right hand, which currently is intact, however is not patent. Per Dr Culver's order, "ok to leave pt with no IV access". Pt is currently having breakfast, and refusing to have the current IV-access hep-lock be touched. Call light is placed within easy reach, bed in lowest position, two side rails up, brakes engaged. Will continue to monitor pt and follow plan of care per MD orders and protocol.
--- NOTE | 2018-06-18 07:35 | NUR ---
HAND-OFF: Report given to LELE Nieto
[2018-06-18 07:53] LABS: BASOPHILS % (AUTO) 1.1 % (0.0-2.0); EOSINOPHILS % (AUTO) 1.7 % (0.0-3.0); HEMATOCRIT 36.4 % (42.0-52.0); HEMOGLOBIN 12.3 G/DL (14.2-18.0); LYMPHOCYTES % (AUTO) 35.8 % (20.0-45.0); MEAN CORPUSCULAR VOLUME 96 FL (80-99); MONOCYTES % (AUTO) 9.5 % (1.0-10.0); NEUTROPHILS % (AUTO) 51.9 % (45.0-75.0); PLATELET COUNT 215 K/UL (150-450); RED CELL DISTRIBUTION WIDTH 11.9 % (11.6-14.8); WHITE BLOOD COUNT 8.2 K/UL (4.8-10.8)
[2018-06-18 08:00] VITALS: BP 142/78
[2018-06-18 08:20] LABS: ANION GAP 12 mmol/L (5-15); BLOOD UREA NITROGEN 27 mg/dL (7-18); CALCIUM 8.9 MG/DL (8.5-10.1); CARBON DIOXIDE 22 MMOL/L (21-32); CHLORIDE 106 MMOL/L (98-107); CREATININE 1.6 MG/DL (0.55-1.30); POTASSIUM 3.7 MMOL/L (3.5-5.1); SODIUM 140 MMOL/L (136-145)
[2018-06-18] MEDS: Levemir Flexpen SUBQ SCH (09:55)
[2018-06-18] MEDS: Metoprolol Tartrate 12.5mg TAB ORAL SCH (09:55)
[2018-06-18] MEDS: Magnesium Oxide 400mg tab ORAL SCH ×2 (09:56→13:00)
[2018-06-18] MEDS: Heparin 5000 units/ml inj SUBQ SCH (09:57)
--- NOTE | 2018-06-18 11:28 | NUR ---
CASE MANAGEMENT:REVIEW 06/18/18 SI: HYPERGLYCEMIA. SASHA. AMS 97.2 88 18 142/78 97% ON RA TROPONIN(+) 0.113 BUN+27 CR+1.6 IS: LOPRESSOR PO Q12 HEPARIN SQ Q12 LEVEMIR SQ QD SS INSULIN : TELEMETRY STATUS
[2018-06-18 12:00] VITALS: BP 135/72
[2018-06-18] MEDS ORDERED: NOVOLOG100 UNITS1 SUBQ (12:02)
[2018-06-18] MEDS ORDERED: LEVEMIR FL100 UNIT/1 SUBQ (12:02)
[2018-06-18] MEDS ORDERED: LOPRESSOR25 M1 ORAL (12:02)
--- NOTE | 2018-06-18 12:09 | Pulmonology Progress Note ---
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 Subjective ROS Limited/Unobtainable: No Constitutional: Reports: no symptoms HEENT: Repors: no symptoms Allergies: Coded Allergies: No Known Allergies (Unverified , 06/14/18) Objective Last 24 Hour Vital Signs Date Time Temp Pulse Resp B/P (MAP) Pulse Ox O2 Delivery O2 Flow Rate FiO2 06/18/18 09:55 82 142/78 06/18/18 09:00 Room Air 06/18/18 08:00 88 06/18/18 08:00 97.2 88 18 142/78 (99) 97 06/18/18 04:29 63 18 Room Air 21 06/18/18 04:00 96.3 59 16 142/92 (109) 97 06/18/18 04:00 57 06/18/18 00:00 97.0 65 17 146/98 (114) 98 06/18/18 00:00 72 06/17/18 21:23 87 138/68 06/17/18 21:00 Room Air 06/17/18 20:00 83 06/17/18 20:00 97.5 87 17 138/68 (91) 96 06/17/18 16:00 97 06/17/18 15:27 97.9 68 20 114/81 (92) 95 Intake and Output 06/17/18 06/18/18 19:00 07:00 Intake Total 600 ml Balance 600 ml Intake Oral 600 ml # Voids 3 3 General Appearance: WD/WN HEENT: normocephalic, atraumatic Respiratory/Chest: chest wall non-tender, lungs clear Cardiovascular: normal peripheral pulses, normal rate Abdomen: normal bowel sounds, soft, non tender Genitourinary: normal external genitalia Skin: no rash Laboratory Tests 06/18/18 06:43: White Blood Count 8.2, Red Blood Count 3.80L, Hemoglobin 12.3L, Hematocrit 36.4L , Mean Corpuscular Volume 96, Mean Corpuscular Hemoglobin 32.3H, Mean Corpuscular Hemoglobin Concent 33.6, Red Cell Distribution Width 11.9, Platelet Count 215, Mean Platelet Volume 6.8, Neutrophils (%) (Auto) 51.9, Lymphocytes (% ) (Auto) 35.8, Monocytes (%) (Auto) 9.5, Eosinophils (%) (Auto) 1.7, Basophils ( %) (Auto) 1.1, Sodium Level 140, Potassium Level 3.7, Chloride Level 106, Carbon Dioxide Level 22, Anion Gap 12, Blood Urea Nitrogen 27H, Creatinine 1.6H , Estimat Glomerular Filtration Rate , Glucose Level 82, Calcium Level 8.9, Magnesium Level 2.0 Current Medications Medications (Trade) Dose Ordered Sig/Indira Route PRN Reason Start Time Stop Time Status Last Admin Dose Admin Acetaminophen (Tylenol) 650 mg Q4H PRN ORAL Fever 06/16/18 01:15 07/14/18 17:14 Albuterol/ Ipratropium (Albuterol/ Ipratropium) 3 ml Q4H PRN HHN Shortness of Breath 06/16/18 01:15 06/19/18 17:14 Dextrose (Dextrose 50%) 25 ml Q30M PRN IV Hypoglycemia 06/16/18 01:30 07/15/18 09:29 Dextrose (Dextrose 50%) 50 ml Q30M PRN IV Hypoglycemia 06/16/18 01:30 07/15/18 09:29 Heparin Sodium (Porcine) (Heparin 5000 units/ml) 5,000 units EVERY 12 HOURS SUBQ 06/16/18 09:00 07/14/18 21:59 06/18/18 09:57 Insulin Aspart (NovoLOG) AC+HS SUBQ 06/16/18 06:30 07/15/18 00:59 06/18/18 11:50 Insulin Aspart (NovoLOG) 5 units NOVOTIAC SUBQ 06/16/18 11:50 07/15/18 11:49 06/18/18 11:52 Insulin Detemir (Levemir) 15 units DAILY SUBQ 06/16/18 09:00 07/15/18 09:59 06/18/18 09:55 Lorazepam (Ativan 2mg/ml 1ml) 0.5 mg Q4H PRN IV For Anxiety 06/16/18 02:15 06/22/18 02:14 Magnesium Oxide (Mag-Ox 400mg) 400 mg THREE TIMES A DAY ORAL 06/16/18 18:00 06/18/18 13:01 06/18/18 09:56 Metoprolol Tartrate (Lopressor) 12.5 mg Q12HR ORAL 06/16/18 23:00 07/16/18 22:59 06/18/18 09:55 Morphine Sulfate (Morphine Sulfate) 4 mg Q4H PRN IVP Severe Pain (Pain Scale 7-10) 06/16/18 01:15 06/21/18 17:14 Nitroglycerin (Ntg) 0.4 mg Q5M PRN SL Prn Chest Pain 06/16/18 01:15 07/14/18 17:14 Ondansetron HCl (Zofran) 4 mg Q6H PRN IVP Nausea & Vomiting 06/16/18 05:15 07/14/18 17:14 Polyethylene Glycol (Miralax) 17 gm DAILYPRN PRN ORAL Constipation 06/16/18 17:15 07/14/18 17:14 Salvador Blandon MD Jun 18, 2018 12:09
--- NOTE | 2018-06-18 14:03 | Cardiology Progress Note ---
Assessment/Plan Assessment/Plan The patient is seen and examined, full consult note will be dictated. Objective Last 24 Hour Vital Signs Date Time Temp Pulse Resp B/P (MAP) Pulse Ox O2 Delivery O2 Flow Rate FiO2 06/18/18 09:55 82 142/78 06/18/18 09:00 Room Air 06/18/18 08:00 88 06/18/18 08:00 97.2 88 18 142/78 (99) 97 06/18/18 04:29 63 18 Room Air 21 06/18/18 04:00 96.3 59 16 142/92 (109) 97 06/18/18 04:00 57 06/18/18 00:00 97.0 65 17 146/98 (114) 98 06/18/18 00:00 72 06/17/18 21:23 87 138/68 06/17/18 21:00 Room Air 06/17/18 20:00 83 06/17/18 20:00 97.5 87 17 138/68 (91) 96 06/17/18 16:00 97 06/17/18 15:27 97.9 68 20 114/81 (92) 95 Intake and Output 06/17/18 06/18/18 18:59 06:59 Intake Total 600 ml Balance 600 ml Intake Oral 600 ml # Voids 3 3 Laboratory Tests Test 06/18/18 06:43 White Blood Count 8.2 K/UL (4.8-10.8) Red Blood Count 3.80 M/UL (4.70-6.10) L Hemoglobin 12.3 G/DL (14.2-18.0) L Hematocrit 36.4 % (42.0-52.0) L Mean Corpuscular Volume 96 FL (80-99) Mean Corpuscular Hemoglobin 32.3 PG (27.0-31.0) H Mean Corpuscular Hemoglobin Concent 33.6 G/DL (32.0-36.0) Red Cell Distribution Width 11.9 % (11.6-14.8) Platelet Count 215 K/UL (150-450) Mean Platelet Volume 6.8 FL (6.5-10.1) Neutrophils (%) (Auto) 51.9 % (45.0-75.0) Lymphocytes (%) (Auto) 35.8 % (20.0-45.0) Monocytes (%) (Auto) 9.5 % (1.0-10.0) Eosinophils (%) (Auto) 1.7 % (0.0-3.0) Basophils (%) (Auto) 1.1 % (0.0-2.0) Sodium Level 140 MMOL/L (136-145) Potassium Level 3.7 MMOL/L (3.5-5.1) Chloride Level 106 MMOL/L (98-107) Carbon Dioxide Level 22 MMOL/L (21-32) Anion Gap 12 mmol/L (5-15) Blood Urea Nitrogen 27 mg/dL (7-18) H Creatinine 1.6 MG/DL (0.55-1.30) H Estimat Glomerular Filtration Rate mL/min (>60) Glucose Level 82 MG/DL (74-106) Calcium Level 8.9 MG/DL (8.5-10.1) Magnesium Level 2.0 MG/DL (1.8-2.4) Reji Nichols MD Jun 18, 2018 14:03
--- NOTE | 2018-06-18 14:30 | NUR ---
NURSE NOTES: Pt was discharged home per Dr Blandon's order. Tele monitor removed and returned. IV access removed. Pt's belonging's list checked and signed with the pt. Discharge instructions handed to pt/explained, pt verbalized understanding. Pt is to follow up with his primary MD to further coordinate blood glucose monitoring. Pt left facility in stable condition, in private vehicle.
--- NOTE | 2018-06-18 16:49 | Cardiology Report ---
APPROVED REPORT EXAM: Two-dimensional and M-mode echocardiogram with Doppler and color Doppler. INDICATION Abnormal cardiac function study M-Mode DIMENSIONS IVSd0.9 (0.7-1.1cm)Left Atrium (MM)3.0 (1.6-4.0cm) LVDd4.0 (3.5-5.6cm)Aortic Root4.2 (2.0-3.7cm) PWd1.2 (0.7-1.1cm)Aortic Cusp Exc.1.9 (1.5-2.0cm) LVDs2.7 (2.5-4.0cm) PWs1.4 cm Technically difficult study due to poor apical windows. Normal left ventricular chamber size, systolic function and wall motion to extent visualized. Left ventricular ejection fraction estimated to be 60-65 %. Study quality precludes accurate assessment of regional wall motion. Moderate left ventricular hypertrophy by 2-D. Small posterior pericardial effusion. Mild left atrial enlargement. Right atrial size at upper limits of normal. Right ventricular size is within normal limits. Focal aortic valve sclerosis with adequate cusp excursion. Aortic root dilatation. Thickened mitral valve leaflets with normal excursion. Mitral annulus and aortic root calcification. Pulmonic valve not well visualized. Normal tricuspid valve structure. IVC at 2.1 cm with physiologic collapse. A color flow and spectral Doppler study was performed and revealed: Mild aortic regurgitation. Trace mitral regurgitation. Mitral diastolic velocities suggest reduced left ventricular relaxation c/w mild LV diastolic dysfunction (Grade I). Trace tricuspid regurgitation. Tricuspid systolic velocities suggests peak right ventricular systolic pressure of 17 mmHg.
--- NOTE | 2018-06-19 09:15 | Consultation ---
DATE OF CONSULTATION: 06/18/2018 CARDIOLOGY CONSULTATION: CONSULTING PHYSICIAN: Reji Nichols M.D. REFERRING PHYSICIAN: Tristan Culver M.D. REASON FOR CONSULTATION: Management of tachycardia. HISTORY OF PRESENT ILLNESS: The patient is a very unfortunate 78-year-old gentleman, who presents to the hospital with his brother with reports of generalized weakness, inability to eat, and somewhat altered level of consciousness. Apparently, the patient has been getting more fatigued, tired, and confused. At the time of arrival to the hospital, the patient's blood pressure was 94/70 mmHg and heart rate of 134. His cardiovascular history is significant for hypertension and diabetes mellitus. Initial laboratory findings was consistent with leukocytosis with white blood cells of 12.5 and renal failure with BUN and creatinine of 92 and 2.7 respectively. Initial troponin I level was slightly elevated at 0.096. He was also found to have mild metabolic acidosis. He showed 4+ glycosuria. Also his serum glucose level was 542. He was admitted to the hospital telemetry unit after hyperosmolar nonketotic coma due to hyperglycemia, associated acute renal failure, and metabolic acidosis due to renal failure. Cardiology consultation was made to address and manage tachycardia, volume deficit, and hemodynamic management. Initial 12-lead electrocardiogram in the emergency department revealed sinus tachycardia rate of 140 with evidence of right bundle-branch block, but no acute ischemic features. Cardiology consultation was made at request of Dr. Tristan Culver. PAST MEDICAL HISTORY: Hypertension and diabetes. SOCIAL HISTORY: No history of tobacco, alcohol, or illicit drug use. He is followed by [facility]. ALLERGIES: No known drug allergies. REVIEW OF SYSTEMS: HEENT: Denies any headache. Had dizziness and blurred vision. CONSTITUTIONAL: Has generalized weakness, but no fever, chills, or night sweats. CARDIOVASCULAR: Denies any chest pain, shortness of breath, PND, orthopnea, or leg swelling. PULMONARY: Denies any cough, hemoptysis, or wheezing. GASTROINTESTINAL: Did have some nausea, some loss of appetite, but no diarrhea, constipation, or GI bleed. GENITOURINARY: Frequency of urination, but no dysuria or hematuria. NEUROLOGY: Appeared to be somewhat confused, but no signs of lateralization. There is no prior history of stroke. LIST OF MEDICATIONS: Metoprolol 12.5 mg twice daily, insulin Levemir 15 units subcutaneously daily, and insulin aspart 5 units subcutaneously daily. FAMILY HISTORY: No premature coronary artery disease or arrhythmogenic in the first-degree relatives. PHYSICAL EXAMINATION: VITAL SIGNS: Blood pressure was 94/70, pulse of 134, respirations 34, temperature 97.5 degrees Fahrenheit, and O2 saturation 99% on room air. In the emergency department, the patient had a chest x-ray, which showed clouding of bronchovascular markings suggestive of possible pneumonia, enlarged heart. GENERAL: The patient is a very unfortunate 78-year-old gentleman, in no apparent respiratory distress. HEENT: Atraumatic, normocephalic. Anicteric. Pupils are equal, round, and reactive to light and accommodation. Extraocular muscles intact. Dry mucosal membrane. NECK: JVP less than 5 cm. No carotid bruit. CARDIOVASCULAR: Normal S1, S2. Regular rate and rhythm. Tachycardic. No murmurs, gallops, or rubs. LUNGS: Clear to auscultation bilaterally. ABDOMEN: Soft, nontender, nondistended. No hepatosplenomegaly. Positive bowel sounds. EXTREMITIES: No evidence of edema, clubbing, or cyanosis. LABORATORY FINDINGS: WBC 12.5, hemoglobin 15.6, hematocrit 47.1, and platelet count 249. Sodium 143, potassium 3.6, chloride 110, bicarbonate 23, BUN 29, creatinine 1.5, glucose is 128. Calcium is 8.5. Troponin I is 0.139. First troponin was 0.096. Triglycerides 86, cholesterol 118, LDL 65, HDL 39. INR is 1.1. Acetone level was negative. A 2D echocardiography on 06/15/2018, normal LV systolic function with LVEF of 60% to 65%, moderate LVH, mild left atrial enlargement, small pericardial effusion, grade 1 LV diastolic dysfunction, right ventricular systolic pressure measured at 17 mmHg and mild aortic regurgitation. ASSESSMENT AND PLAN: The patient is a very unfortunate 78-year-old gentleman, seen in Cardiology consultation. 1. Slight elevation of troponin I level in this patient most likely secondary to combination of hypovolemia/dehydration, sepsis, hyperglycemia as well as tachycardia. Doubt that this represent acute coronary syndrome as the patient was chest pain free and there was no evidence of ST-segment changes on the 12-lead electrocardiogram. In addition, 2D echocardiography was evaluated and revealed no wall motion abnormalities. The patient may benefit from an outpatient stress test if he becomes symptomatic from the cardiac standpoint. At this time, I would consider aspirin, statin, and beta-blockers for double-product control. 2. Sinus tachycardia, likely due to severe hypovolemia as he might have lost lot of volume due to glycosuria. Aggressive hydration. Tight blood sugar control is recommended. 3. Hyperglycemia with very mild nonketotic hyperosmolar coma. 4. Acute renal failure on chronic kidney disease. Creatinine dropped to 1.6. Continue with hydration and evaluate for proteinuria. I would like to thank, Dr. Culver, for allowing me to participate in the care of this patient. Reji Nichols M.D. DR: VIV JOB#: [id number] CC:
--- NOTE | 2018-06-19 14:45 | Discharge Summary ---
Discharge Summary Discharge Summary _ DATE OF ADMISSION: 06/14/2018 DATE OF DISCHARGE:06/18/18 DISCHARGED BY: Dr. Culver REASON FOR ADMISSION: 78 years male with past medical history of diabetes mellitus, hypertension, presented to emergency department with weakness and inability to eat for the past few days. Patient's brother reported that patient seemed confused . Patient by himself denied pain, nausea, vomiting . He denied recent illness. He denied fever and chills. He denied cough and congestion. Patient reported history of diabetes. He was not taking any medication and was not checking blood sugar for few days. Upon evaluation patient was tachycardic, tachypneic and hypotensive. Laboratory workup revealed elevated white blood count of 12.5, stable hemoglobin and hematocrit. Urinalysis revealed +2 protein ,+4 glucose, +2 ketones and was negative for evidence of UTI. BUN 92 , creatinine 2.7. Lactic acid 6.0 . Glucose 542 with stable potassium, CO2 and elevated anion gap 17. Troponin elevated - 0.096. ABG revealed evidence of metabolic acidosis with pH 7.32 and pCO2 of 33. Influenza screen was negative. EKG revealed sinus tachycardia with right bundle branch block, no acute ischemic changes. Chest x-ray revealed borderline cardiomegaly, no definite acute process . Influenza screen test was negative. In emergency department patient received aggressive IV hydration, received intravenous insulin, and started on broad-spectrum antibiotics. Patient was admitted for further management to direct observational unit. CONSULTANTS: line producer Dr. Nichols pulmonary Dr. Blandon process improvement [facility] Patient admitted to direct observational unit and continued with aggressive IV hydration. Electrical Engineering Manager followed. Per process improvement analyst initial hyperglycemia responded to IV insulin in the emergency department, and there was no need to use it anymore. Patient was not in DKA , and acidosis gap was due to lactic acidosis. Blood sugar was managed with long-acting insulin and short -acting acting pre- meal insulin as well as sliding scale of insulin on as needed basis. Hemoglobin A1c-8.9. Supplemental oxygen provided as needed to keep pulse oximetry above 92% , pulmonary toilet provided as needed . DVT prophylaxis provided. Renal parameters and electrolytes were closely monitored, electrolytes replaced as needed and nephrotoxins were avoided. Patient had acute kidney injury on chronic renal insufficiency , brought by dehydration and severe hyperglycemia. Prior to discharge p creatinine down to 1.6 from initial 2.7 and BUN from 92 down to 27. Renal ultrasound was negative Activity Specialist followed for elevated troponin. Troponin minimally elevated. EKG revealed no acute ischemic changes. Telemetry showed sinus rhythm. Patient denied any cardiac complaints, no chest pain or shortness of breath. Per line producer, elevated troponin was likely due to renal failure/leaking troponin. Echocardiogram revealed preserved ejection fraction 60-65% with moderate left ventricular hypertrophy no evidence of wall motion abnormality. Right ventricular systolic pressure of 17. Lipid panel was stable. Mental status improved to baseline. Initial acute encephalopathy was likely due to severe hypoglycemia and dehydration Patient started on beta-ebony for blood pressure management with holding parameters. No TUCKER inhibitor, as recommended for diabetic , due to renal failure. Pain management was addressed. Bowel regimen instituted. Supportive care provided. Blood cultures were negative. Initial leukocytosis resolved, likely was reactive secondary to severe hyperglycemia and dehydration. Patient clinically stabilized and ready for discharge home. FINAL DIAGNOSES: Severe hyperglycemia with history of diabetes Hyperosmolar coma Lactic acidosis Acute kidney injury with acute tubular necrosis on chronic kidney disease Dehydration Acute metabolic encephalopathy due to severe hyperglycemia and dehydration Morbid obesity Probably obstructive sleep apnea Electrolyte abnormality ( hypokalemia, hypomagnesemia) DISCHARGE MEDICATIONS: See Medication Reconciliation list. DISCHARGE INSTRUCTIONS: Patient was discharged home. Follow-up with a primary care provider in 1 week. Patient was encouraged to comply with anti-glycemic medication regimen . Katelyn Flores NP Jun 19, 2018 14:45
== END 2018-06-18 14:00 | disposition home or self-care (01) | DRG 637 ==
LOC: EDBD 13:40 → EMR 14:24 → ICU 15:22 → EDBEDREQ 17:13 → EDBEDREQSVC 19:31 → EDBEDREQ 19:31 → 2W 20:42 → 2E 06-16 01:58 → 2W 06-16 05:31 → 2E 06-16 20:58
DX: E11.01 Type 2 diabetes mellitus with hyperosmolarity with coma (principal); G93.41 Metabolic encephalopathy; N17.0 Acute kidney failure with tubular necrosis; N17.9 Acute kidney failure, unspecified; E87.2 Acidosis; E86.0 Dehydration; F17.200 Nicotine dependence, unspecified, uncomplicated; E66.01 Morbid (severe) obesity due to excess calories; G47.33 Obstructive sleep apnea (adult) (pediatric); E11.22 Type 2 diabetes mellitus with diabetic chronic kidney disease; N18.9 Chronic kidney disease, unspecified; E87.6 Hypokalemia; E83.42 Hypomagnesemia; R00.0 Tachycardia, unspecified; I45.10 Unspecified right bundle-branch block; Z68.31 Body mass index [BMI] 31.0-31.9, adult
CPT/HCPCS: 36415; 36600; 71045; 76770; 80048; 80053; 80061; 80076; 81003; 82009; 82465; 82550; 82553; 82803; 82962; 83036; 83605; 83735; 84100; 84484; 85025; 85610; 85730; 86710; 87040; 87081; 93005; 93306; 94664; 96361; 96365; 99291; J1815; J8499; S5561

== ENCOUNTER 2018-11-24 00:10 | Inpatient (IN) | payer MEDICARE, OTHER ==
[~2018-11-24] VITALS: Ht 175.3 cm; Wt 98.9 kg
[2018-11-24] VITALS (9 sets, daily range): BP systolic 132–180; BP diastolic 70–99
--- NOTE | 2018-11-24 00:05 | NUR ---
ED Nurse Note: Patient noreen RA 834 from home c/o nausea and vomiting since 1500 today, denies any pain. ao4. nad.
[~2018-11-24 00:10] MED LIST: LEVEMIR FL100 UNIT/1 SUBQ; LOPRESSOR25 M1 ORAL; NOVOLOG100 UNITS1 SUBQ
--- NOTE | 2018-11-24 00:10 | NUR ---
ED Nurse Note: iv access established. blood collected; sent down to lab.
[2018-11-24] MEDS ORDERED: GLIPIZIDE5 MG ORAL (00:12)
[2018-11-24] MEDS ORDERED: LISINOPRIL20 MG ORAL (00:12)
[2018-11-24] MEDS ORDERED: ATORVASTATIN CA20 MG ORAL (00:12)
--- NOTE | 2018-11-24 00:13 | Emergency Room Report ---
History of Present Illness General Chief Complaint: Vomiting Source: Patient Present Illness HPI HPI: 79-year-old male with history of diabetes, hypertension, hyperlipidemia heart disease presents for evaluation of nausea and vomiting. He was in his usual state of health when he awoke this morning however approximately 2 or 3 PM he began to experience for significant vomiting. He states he has been constantly vomiting since then and unable to hold anything down. He is feeling fatigued and run down, dehydrated. He denies any diarrhea, denies abdominal pain, chest pain, shortness of breath, rash, dysuria, hematuria, flank pain or any other discomfort. He simply states that he cannot hold any food down. He states this is happened in the past when his blood sugars were very high however the has been well controlled recently. He does feel chills and sweats intermittently. PMH: Hypertension, hyperlipidemia, diabetes PSH: See chart Allergies: Denies Social Hx: Denies drug or alcohol abuse Allergies: Coded Allergies: No Known Allergies (Unverified , 06/14/18) Nursing Documentation-PMH Hx Hypertension: Yes - HTN Hx Diabetes: Yes - Type 2 Review of Systems All Other Systems: negative except mentioned in HPI Physical Exam Vital Signs Date Time Temp Pulse Resp B/P (MAP) Pulse Ox O2 Delivery O2 Flow Rate FiO2 11/23/18 23:55 97.9 114 18 163/99 (120) 98 Room Air General: Awake and alert, no acute distress HEENT: NC/AT. EOMI. mucous membranes Cardiovascular: Cardiac. S1 and S2 normal. No murmur appreciated Resp: Normal work of breathing. No cough, wheezing or crackles appreciated Abdomen: Abdomen is soft, nondistended. There are 2 palpation in the epigastrium, left upper quadrant and right upper quadran. No masses, no rebound Skin: Intact. No abrasions, laceration or rash over the exposed skin MSK: Normal tone and bulk. Moving all extremities. No obvious deformity. Neuro: Awake and alert. Mentating appropriately. Medical Decision Making Diagnostic Impression: Primary Impression: SASHA (acute kidney injury) Additional Impressions: Vomiting Dehydration ER Course 79-year-old male history of diabetes, hypertension, hyperlipidemia presenting with sudden onset vomiting. Differential includes but is not limited to gastritis, cholecystitis, pancreatitis, atypical presentation of ACS, DKA, sepsis, obstruction. Fingerstick on arrival 273. Will check labs including EKG , cardiac enzymes start IV fluids and give antiemetics. Further work-up depending on labs as his disposition. He is otherwise in no acute distress and only mildly tachycardic which I attribute to dehydration at this point. Will reassess frequently. Reevaluation Time: 02:20 Last Vital Signs Date Time Temp Pulse Resp B/P (MAP) Pulse Ox O2 Delivery O2 Flow Rate FiO2 11/23/18 23:55 97.9 114 18 163/99 (120) 98 Room Air Status: unchanged Reevaluation Impression Abdominal x-ray shows a nonspecific bowel gas pattern with moderate stool but nonobstructive. Labs show an acute kidney injury consistent with the patient's dehydration. He continues to vomit in the emergency department despite Zofran and Reglan. He continues to receive IV fluids. At this time, the patient would benefit from admission for dehydration, SASHA and intractable vomiting. Lab work otherwise within normal limits. Will admit to the service of Dr. Culver based on previous admission. Please note that this report is being documented using AREVS technology. This can lead to erroneous entry secondary to incorrect interpretation by the dictating instrument. Disposition: ADMITTED INPATIENT Jaciel Teague MD Nov 24, 2018 00:13
--- NOTE | 2018-11-24 00:15 | NUR ---
ED Nurse Note: unable to collect urine sample. pt refused straight cath. will attempt to collect urine at a later time.
[2018-11-24 00:30] LABS: BASOPHILS % (AUTO) 0.9 % (0.0-2.0); EOSINOPHILS % (AUTO) 0.1 % (0.0-3.0); HEMATOCRIT 49.8 % (42.0-52.0); HEMOGLOBIN 16.9 G/DL (14.2-18.0); MEAN CORPUSCULAR VOLUME 92 FL (80-99); MONOCYTES % (AUTO) 4.8 % (1.0-10.0); NEUTROPHILS % (AUTO) 80.2 % (45.0-75.0); PLATELET COUNT 276 K/UL (150-450); RED BLOOD COUNT 5.43 M/UL (4.70-6.10); WHITE BLOOD COUNT 8.7 K/UL (4.8-10.8)
[2018-11-24 00:41] LABS: ANION GAP 14 mmol/L (5-15); BLOOD UREA NITROGEN 32 mg/dL (7-18); CALCIUM 10.2 MG/DL (8.5-10.1); CARBON DIOXIDE 22 MMOL/L (21-32); CHLORIDE 102 MMOL/L (98-107); POTASSIUM 3.9 MMOL/L (3.5-5.1); SODIUM 138 MMOL/L (136-145)
[2018-11-24] MEDS ORDERED: Metoclopramide 10mg/2ml Inj ONE (00:41)
[2018-11-24 00:45] LABS: ALANINE AMINOTRANSFERASE 20 U/L (12-78); ALBUMIN 3.7 G/DL (3.4-5.0); ALBUMIN/GLOBULIN RATIO 0.8 (1.0-2.7); ALKALINE PHOSPHATASE 90 U/L (46-116); ASPARTATE AMINO TRANSFERASE 15 U/L (15-37); BILIRUBIN,TOTAL 0.5 MG/DL (0.2-1.0)
[2018-11-24] MEDS ORDERED: Metoclopramide 10mg/2ml Inj IVP ONE ×2 (00:45→02:15)
--- NOTE | 2018-11-24 01:00 | NUR ---
ED Nurse Note: unable to collect urine; ermd notified. no new orders at this time.
--- NOTE | 2018-11-24 01:08 | NUR ---
ED Nurse Note: imaging at bedside.
--- NOTE | 2018-11-24 02:00 | NUR ---
ED Nurse Note: patient sleeping in bed with nad. blood pressure 180/84. notified ermd; no new orders at this time.
--- NOTE | 2018-11-24 02:07 | Diagnostic Imaging Report ---
EXAM: XR Abdomen, frontal view CLINICAL HISTORY: ABD PAIN TECHNIQUE: Frontal view of the abdomen/pelvis COMPARISON: No relevant prior studies available. FINDINGS: Gastrointestinal tract: Moderate amount of stool in the colon. No dilation. Bones/joints: Suspect osteopenia. Mild degenerative changes. IMPRESSION: Nonspecific bowel gas pattern
--- NOTE | 2018-11-24 03:30 | NUR ---
ED Nurse Note: urine collected; sent down to lab.
--- NOTE | 2018-11-24 03:52 | NUR ---
TRANSFER TO FLOOR: Patient transferred to med surg [id number] as ordered, per md joey. Report given to silvano pitt. belongings list completed with receiving rn
[2018-11-24 04:12] LABS: APPEARANCE,URINE CLEAR; BILIRUBIN, URINE NEGATIVE (NEGATIVE); COLOR,URINE PALE YELLOW; GLUCOSE, URINE (UA) 4+ (NEGATIVE); KETONES,URINE 2+ (NEGATIVE); LEUKOCYTE ESTERASE ,URINE NEGATIVE (NEGATIVE); NITRITE,URINE NEGATIVE (NEGATIVE); PH,URINE 5 (4.5-8.0); PROTEIN,URINE 2+ (NEGATIVE); UROBILINOGEN,URINE NORMAL MG/DL (0.0-1.0)
--- NOTE | 2018-11-24 04:30 | NUR ---
SPORTS TRAINER Note: SPORTS TRAINER was called at 0430 by LELE Bowers, and notified MD Culver. Pt transferred to [facility] at 0450. See SPORTS TRAINER documentation form for full report.
--- NOTE | 2018-11-24 05:00 | NUR ---
NURSE NOTES: Received report/pt from LELE Reed from 4E via hospital bed. Pt. in bed awake persistently vomiting. Pt. feels lethargic. AOx4. Respiration even and non labored on room air. No sob noted. Belongings checked. nurse monitoring on showing sinus tach. VS 174/984 HR 142, Resp. 24, O2 sat 97%, 99.6F Oral. Oriented to room and location. Call light within reach, bed in lowest position, wheels locked and alarm on. IV on L hand patent and intact. Called and left a message to Dr. Culver for Admission orders. Awaiting call back.
--- NOTE | 2018-11-24 05:20 | NUR ---
NURSE NOTES: Received report from Temo Jorge ED nurse. Pt arrived to unit at 0410 and transferred into bed in room 416-1. Pt AAO x 4, on room air. Pt was vomiting with green and brown color liquid texture. IV L hand 20 intact and infusing NS 125cc/hr. Per ED nurse, pt had sinus tachy 108HR, highest HR was 122, and blood sugar was 298 from ED. Vitals obtained on the unit 94% O2, 100.2F, 178/98 BP, 16 RR, 148 HR. Called rapid response team @ 0430 due to tachycardia and pt was transferred to tele @ 0450. Report given to LELE Duval @0500. Elissa, charge nurse 4E, called Dr. Culver @0500 and left message but no response. All belongings reviewed. Pt has $168 munoz and wants to keep with him.
--- NOTE | 2018-11-24 05:52 | NUR ---
RecNURSE NOTES: Addendum: 11/24/18 at 0615 by VAL RAMEY RN RN Error
--- NOTE | 2018-11-24 07:19 | NUR ---
NURSE NOTES: Received report from LELE Duval. Patient is asleep in bed. Patient is breathing even and unlabored. 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 Patient bed is in lowest position, side rails x2 elevated, call light within reached, and bed locked. Will follow up for admitting orders from Dr. Culver.
--- NOTE | 2018-11-24 07:21 | NUR ---
HAND-OFF: Report given to LELE Jimenes.
[2018-11-24] MEDS ORDERED: D5 1/2NS 1,000 ML IV SCH (08:15)
[2018-11-24] MEDS ORDERED: Zolpidem 5mg tab ORAL PRN ×2 (09:15→21:00)
[2018-11-24] MEDS ORDERED: HydrALAZINE 25mg tab ORAL PRN ×2 (09:15→17:00)
[2018-11-24] MEDS ORDERED: Albuterol/Ipratropium 3ml neb HHN PRN ×2 (09:15→17:00)
[2018-11-24] MEDS ORDERED: Mylanta II UD 30ml ORAL PRN ×2 (09:15→17:00)
[2018-11-24] MEDS ORDERED: Miralax 17gm pkt ORAL PRN (09:15)
--- NOTE | 2018-11-24 09:24 | Consultation ---
History of Present Illness General Date patient seen: Nov 24, 2018 Time patient seen: 08:00 Chief Complaint: Vomiting Referring physician: Dr Culver Present Illness HPI 78 years old male with past medical history of DM, HTN, HLD, presented due to nausea and vomiting. Patient reported abdominal pain with nausea and nonbloody vomiting. No diarrhea. No blood in stool Patient reported subjective fever. Patient reported fatigue, weakness and dehydration. He denied chest pain, shortness of breath. He denied dysuria, hematuria, flank pain. He was unable to hold down any food. Upon evaluation patient was tachycardic, blood pressure was elevated. Abdominal x-ray revealed nonspecific bowel gas pattern with moderate stool, but not obstructive. Troponin negative. EKG revealed sinus rhythm with intermittent episodes of tachycardia, right bundle branch block pattern, no acute ischemic changes. Laboratory work-up revealed no leukocytosis, stable hemoglobin and hematocrit. BUN 32, creatinine 2.0. Glucose 298. Stable LFT and lipase. Patient had prior admission in May 2018 for severe hyperglycemia hyperosmolar coma lactic acidosis and acute kidney injury. At that time baseline creatinine was 1.5 Patient subsequently admitted to telemetry floor for further management. Telemetry this morning showed episode of SVT Allergies: Coded Allergies: No Known Allergies (Unverified , 06/14/18) Medication History Scheduled Atorvastatin Calcium* (Atorvastatin Calcium*), 20 MG ORAL BEDTIME, (Reported) Glipizide* (Glipizide*), 5 MG ORAL BIDAC, (Reported) Insulin Aspart (Novolog Flexpen), 5 UNITS SUBQ NOVOTIAC Insulin Detemir (Levemir Flexpen), 15 UNITS SUBQ DAILY Lisinopril (Lisinopril*), 20 MG ORAL DAILY, (Reported) Metoprolol Tartrate (Metoprolol Tartrate), 12.5 MG ORAL Q12HR Patient History History Provided By: Patient, Medical Record Healthcare decision maker Resuscitation status Full Code Advanced Directive on File Past Medical/Surgical History Past Medical/Surgical History: (1) Hypertension (2) Diabetes mellitus (3) SASHA (acute kidney injury) (4) Hyperosmolar coma (5) Dehydration Review of Systems Constitutional: Reports: fever, weakness Eye: Reports: no symptoms Respiratory: Reports: no symptoms Cardiovascular: Reports: no symptoms Gastrointestinal: Reports: see HPI Genitourinary: Reports: no symptoms Musculoskeletal: Reports: no symptoms Psychiatric: Reports: no symptoms Neurological: Reports: no symptoms Endocrine: Reports: other - hx od DM Hematologic/Lymphatic: Reports: no symptoms Physical Exam General Appearance: no apparent distress - awake, alert, somnolent, forgetful Lines, tubes and drains: peripheral HEENT: normocephalic, atraumatic, anicteric Neck: non-tender, supple Respiratory/Chest: chest wall non-tender, lungs clear, no respiratory distress , no accessory muscle use Cardiovascular/Chest: normal peripheral pulses, no JVD, tachycardia - ST on tele Abdomen: normal bowel sounds, non tender, soft Extremities: normal range of motion, non-tender, no calf tenderness Skin Exam: warm/dry Neurologic: no motor/sensory deficits, alert Musculoskeletal: normal muscle bulk Last 24 Hour Vital Signs Date Time Temp Pulse Resp B/P (MAP) Pulse Ox O2 Delivery O2 Flow Rate FiO2 11/24/18 08:00 98.4 139 20 157/91 (113) 97 11/24/18 05:30 99.6 142 24 174/94 (120) 97 11/24/18 05:30 Room Air 11/24/18 05:00 133 11/24/18 03:53 97.9 108 25 159/86 98 Room Air 11/24/18 03:45 97.9 108 25 159/86 98 Room Air 11/24/18 03:20 203/88 11/24/18 02:42 97.9 108 25 180/84 98 Room Air 11/24/18 01:00 97.9 114 25 176/92 98 Room Air 11/24/18 00:10 110 18 Room Air 11/24/18 00:09 97.9 110 18 163/99 98 Room Air 11/23/18 23:55 97.9 114 18 163/99 (120) 98 Room Air Laboratory Tests Test 11/24/18 00:10 11/24/18 03:30 White Blood Count 8.7 K/UL (4.8-10.8) Red Blood Count 5.43 M/UL (4.70-6.10) Hemoglobin 16.9 G/DL (14.2-18.0) Hematocrit 49.8 % (42.0-52.0) Mean Corpuscular Volume 92 FL (80-99) Mean Corpuscular Hemoglobin 31.1 PG (27.0-31.0) H Mean Corpuscular Hemoglobin Concent 33.9 G/DL (32.0-36.0) Red Cell Distribution Width 13.0 % (11.6-14.8) Platelet Count 276 K/UL (150-450) Mean Platelet Volume 6.5 FL (6.5-10.1) Neutrophils (%) (Auto) 80.2 % (45.0-75.0) H Lymphocytes (%) (Auto) 14.0 % (20.0-45.0) L Monocytes (%) (Auto) 4.8 % (1.0-10.0) Eosinophils (%) (Auto) 0.1 % (0.0-3.0) Basophils (%) (Auto) 0.9 % (0.0-2.0) Sodium Level 138 MMOL/L (136-145) Potassium Level 3.9 MMOL/L (3.5-5.1) Chloride Level 102 MMOL/L (98-107) Carbon Dioxide Level 22 MMOL/L (21-32) Anion Gap 14 mmol/L (5-15) Blood Urea Nitrogen 32 mg/dL (7-18) H Creatinine 2.0 MG/DL (0.55-1.30) H Estimat Glomerular Filtration Rate mL/min (>60) Glucose Level 298 MG/DL (74-106) H Calcium Level 10.2 MG/DL (8.5-10.1) H Total Bilirubin 0.5 MG/DL (0.2-1.0) Aspartate Amino Transf (AST/SGOT) 15 U/L (15-37) Alanine Aminotransferase (ALT/SGPT) 20 U/L (12-78) Alkaline Phosphatase 90 U/L (46-116) Troponin I 0.008 ng/mL (0.000-0.056) Total Protein 8.1 G/DL (6.4-8.2) Albumin 3.7 G/DL (3.4-5.0) Globulin 4.4 g/dL Albumin/Globulin Ratio 0.8 (1.0-2.7) L Lipase 273 U/L (73-393) Urine Color Pale yellow Urine Appearance Clear Urine pH 5 (4.5-8.0) Urine Specific [place] 1.015 (1.005-1.035) Urine Protein 2+ (NEGATIVE) H Urine Glucose (UA) 4+ (NEGATIVE) H Urine Ketones 2+ (NEGATIVE) H Urine Blood 2+ (NEGATIVE) H Urine Nitrite Negative (NEGATIVE) Urine Bilirubin Negative (NEGATIVE) Urine Urobilinogen Normal MG/DL (0.0-1.0) Urine Leukocyte Esterase Negative (NEGATIVE) Urine RBC 2-4 /HPF (0 - 0) H Urine WBC 0-2 /HPF (0 - 0) Urine Squamous Epithelial Cells Occasional /LPF Urine Amorphous Sediment Moderate /LPF (NONE) H Urine Bacteria Few /HPF (NONE) Height (Feet): 5 Height (Inches): 9.00 Weight (Pounds): 218 Medications Current Medications Medications (Trade) Dose Ordered Sig/Indira Route PRN Reason Start Time Stop Time Status Last Admin Dose Admin Dextrose/Sodium Chloride 1,000 ml @ 75 mls/hr [id number] IV 11/24/18 08:15 12/24/18 08:14 11/24/18 08:26 Ondansetron HCl (Zofran) 4 mg PRN PRN IVP Nausea & Vomiting 11/24/18 03:15 Assessment/Plan Assessment/Plan: ASSESSMENT Abdominal pain with nausea and vomiting SASHA , likely secondary to dehydration Hypertensive urgency Diabetes mellitus with hyperglycemia Sinus tachycardia with periods of SVT PLAN OF CARE tele NPO x meds, can start trials of CL if tolerated, change IVF to 1/2 NS without glucose IVF ECHO cardio eval- per PMD pending prior ECHO in May with pEF repeat ECG in am BP management with BB and TUCKER, Hydralazine prn monitor renal parameters, lytes, correct lytes prn, avoid nephrotoxic baseline creat appeared to be 1.5 at prior admission renal US on prior admission with normal ally kidney echogenicity BS management with SSI, hold oral a/glycemic while NPO, check HgA1c DVT/GI prophylaxis supportive care a/emetic prn case discussed and evaluated by supervising physician Katelyn Flores NP Nov 24, 2018 09:24
[2018-11-24] MEDS ORDERED: Metoclopramide 10mg/2ml Inj IVP PRN ×3 (09:45→17:00)
--- NOTE | 2018-11-24 10:10 | NUR ---
NURSE NOTES: Spoke to Dr. Rodriges in regards to patient previous heart rythms which include patient going sinus bradycardia to 40 and patient going up to 140. EKG was ordered. Echo was being completed. Dr. Rodriges will see patient later today.
--- NOTE | 2018-11-24 10:10 | Diagnostic Imaging Report ---
EXAM: XR Chest, 1 View CLINICAL HISTORY: SOB TECHNIQUE: Frontal view of the chest. COMPARISON: No relevant prior studies available. FINDINGS: Lungs: Reduced lung volumes with mild basilar atelectasis/pneumonitis. Pleural space: Unremarkable. No pneumothorax. Heart: Prominent cardiomediastinal silhouette. Mediastinum: See above. Bones/joints: No acute fracture. IMPRESSION: Reduced lung volumes with mild basilar atelectasis/pneumonitis.
[2018-11-24] MEDS ORDERED: Enoxaparin 40mg Inj SUBQ SCH (10:15)
--- NOTE | 2018-11-24 11:00 | NUR ---
NURSE NOTES: EKG completed.
[2018-11-24] MEDS ORDERED: NovoLOG Insulin Flexpen SUBQ SCH (11:30)
--- NOTE | 2018-11-24 13:41 | History & Physical ---
History and Physical History & Physicial Dictated for Int Med-Dr Culver no. [id number]. Mauro Medrano MD Nov 24, 2018 13:41
--- NOTE | 2018-11-24 13:50 | NUR ---
NURSE NOTES: Dr. Medrano saw patient. Dr. Rodriges is aware of ST BBB. Patient needs to be send to ICU. Order entered.
--- NOTE | 2018-11-24 14:50 | Cardiac Electrophysiology PN ---
Subjective Subjective [id number] Objective Last 24 Hour Vital Signs Date Time Temp Pulse Resp B/P (MAP) Pulse Ox O2 Delivery O2 Flow Rate FiO2 11/24/18 12:00 99.7 127 20 132/86 (101) 97 11/24/18 09:00 Room Air 11/24/18 08:18 40 11/24/18 08:00 98.4 139 20 157/91 (113) 97 11/24/18 05:30 99.6 142 24 174/94 (120) 97 11/24/18 05:30 Room Air 11/24/18 05:00 133 11/24/18 03:53 97.9 108 25 159/86 98 Room Air 11/24/18 03:45 97.9 108 25 159/86 98 Room Air 11/24/18 03:20 203/88 11/24/18 02:42 97.9 108 25 180/84 98 Room Air 11/24/18 01:00 97.9 114 25 176/92 98 Room Air 11/24/18 00:10 110 18 Room Air 11/24/18 00:09 97.9 110 18 163/99 98 Room Air 11/23/18 23:55 97.9 114 18 163/99 (120) 98 Room Air Intake and Output 11/23/18 11/24/18 19:00 07:00 # Voids 2 Laboratory Tests Test 11/24/18 00:10 11/24/18 03:30 White Blood Count 8.7 K/UL (4.8-10.8) Red Blood Count 5.43 M/UL (4.70-6.10) Hemoglobin 16.9 G/DL (14.2-18.0) Hematocrit 49.8 % (42.0-52.0) Mean Corpuscular Volume 92 FL (80-99) Mean Corpuscular Hemoglobin 31.1 PG (27.0-31.0) H Mean Corpuscular Hemoglobin Concent 33.9 G/DL (32.0-36.0) Red Cell Distribution Width 13.0 % (11.6-14.8) Platelet Count 276 K/UL (150-450) Mean Platelet Volume 6.5 FL (6.5-10.1) Neutrophils (%) (Auto) 80.2 % (45.0-75.0) H Lymphocytes (%) (Auto) 14.0 % (20.0-45.0) L Monocytes (%) (Auto) 4.8 % (1.0-10.0) Eosinophils (%) (Auto) 0.1 % (0.0-3.0) Basophils (%) (Auto) 0.9 % (0.0-2.0) Sodium Level 138 MMOL/L (136-145) Potassium Level 3.9 MMOL/L (3.5-5.1) Chloride Level 102 MMOL/L (98-107) Carbon Dioxide Level 22 MMOL/L (21-32) Anion Gap 14 mmol/L (5-15) Blood Urea Nitrogen 32 mg/dL (7-18) H Creatinine 2.0 MG/DL (0.55-1.30) H Estimat Glomerular Filtration Rate mL/min (>60) Glucose Level 298 MG/DL (74-106) H Calcium Level 10.2 MG/DL (8.5-10.1) H Total Bilirubin 0.5 MG/DL (0.2-1.0) Aspartate Amino Transf (AST/SGOT) 15 U/L (15-37) Alanine Aminotransferase (ALT/SGPT) 20 U/L (12-78) Alkaline Phosphatase 90 U/L (46-116) Troponin I 0.008 ng/mL (0.000-0.056) Total Protein 8.1 G/DL (6.4-8.2) Albumin 3.7 G/DL (3.4-5.0) Globulin 4.4 g/dL Albumin/Globulin Ratio 0.8 (1.0-2.7) L Lipase 273 U/L (73-393) Urine Color Pale yellow Urine Appearance Clear Urine pH 5 (4.5-8.0) Urine Specific [place] 1.015 (1.005-1.035) Urine Protein 2+ (NEGATIVE) H Urine Glucose (UA) 4+ (NEGATIVE) H Urine Ketones 2+ (NEGATIVE) H Urine Blood 2+ (NEGATIVE) H Urine Nitrite Negative (NEGATIVE) Urine Bilirubin Negative (NEGATIVE) Urine Urobilinogen Normal MG/DL (0.0-1.0) Urine Leukocyte Esterase Negative (NEGATIVE) Urine RBC 2-4 /HPF (0 - 0) H Urine WBC 0-2 /HPF (0 - 0) Urine Squamous Epithelial Cells Occasional /LPF Urine Amorphous Sediment Moderate /LPF (NONE) H Urine Bacteria Few /HPF (NONE) Reji Rodriges MD Nov 24, 2018 14:50
--- NOTE | 2018-11-24 15:52 | NUR ---
CASE MANAGEMENT: REVIEW 78Y/M CC: VOMITING SI: DEHYDRATION . SASHA T 99.7 HR 142 RR 24 BP 174/94 SAT 97% ROOM AIR BUN 32 CR 2.0 GLUCOSE 298 TROP 0.112 UA: PROTEIN 2+ GLUCOSE 4+ KETONE 2+ BLOOD 2+ IS: NS IVF BOLUS X1 ZOFRAN IV X1 REGLAN PO QD APRESOLINE IV X1 PATIENT ADMITTED TO TELEMETRY UNIT 11/24/2018 DCP: PATIENT IS FROM HOME
--- NOTE | 2018-11-24 16:00 | NUR ---
HAND-OFF: Report given to LELE Gilbert. Patient is AAO x4. Endorsed about troponin and EKGs were made aware to Dr. Rodriges today. Patient denies pain and breathing even and unlabored. Son at bedside.
--- NOTE | 2018-11-24 16:00 | NUR ---
NURSE NOTES: Received pt from LELE Jimenes in stable condition on RA hooked to surveillance system monitor (currently 106bpm ST). Pt is AAOx4 w/ LH 20g IV. Pt uses urinal to void. No skin alterations noted. Pt's son at bedside. Reviewed belongings with Jalil. Bed is in lowest position w/ alarm on, side rails up z 2, call light within reach. Will continue to monitor pt.
--- NOTE | 2018-11-24 16:00 | NUR ---
NURSE NOTES: Received Critical lab of troponin 0.112 @ 15:32. Notified Dr. Rodriges of lab result at 15:45. Dr. Rodriges is aware.
--- NOTE | 2018-11-24 16:21 | Diagnostic Imaging Report ---
EXAM: CT Abdomen and Pelvis Without Intravenous Contrast CLINICAL HISTORY: ABD PAIN TECHNIQUE: Axial computed tomography images of the abdomen and pelvis without intravenous contrast. CTDI is 17.49 mGy and DLP is 999 mGy-cm. One or more of the following dose reduction techniques were used: automated exposure control, adjustment of the mA and/or kV according to patient size, use of iterative reconstruction technique. COMPARISON: No relevant prior studies available. FINDINGS: Lung bases: Basilar atelectasis/pneumonitis. Heart: Cardiomegaly. Mediastinum: Thickening of the distal esophagus. ABDOMEN: Liver: Unremarkable Gallbladder and bile ducts: No calcified stones. No ductal dilation. Pancreas: Unremarkable. Spleen: Unremarkable. Adrenals: Unremarkable. Kidneys and ureters: Left renal cyst measuring about 3 cm. Presumed dense cyst in the upper pole of the left kidney measuring approximately 2 cm. Differential includes solid lesion. No hydronephrosis. Stomach and bowel: No miroslava mural thickening. Nonobstructive bowel gas pattern. PELVIS: Appendix: Unremarkable appendix. Bladder: Unremarkable. Reproductive: Unremarkable. ABDOMEN and PELVIS: Intraperitoneal space: Unremarkable. Bones/joints: No acute fracture. Soft tissues: Unremarkable. Vasculature: Unremarkable. No abdominal aortic aneurysm. Lymph nodes: No enlarged lymph nodes. IMPRESSION: 1. Thickening of the distal esophagus. Could be esophagitis or infiltrative lesion. 2. Unremarkable appendix. No colitis.
[2018-11-24] MEDS: NovoLOG Insulin Flexpen SUBQ SCH ×2 (17:53→20:48)
--- NOTE | 2018-11-24 19:15 | Consultation ---
DATE OF CONSULTATION: 11/24/2018 CONSULTING PHYSICIAN: Roldan Harrell M.D. CHIEF COMPLAINT: Nausea, vomiting, and abdominal pain. HISTORY OF PRESENT ILLNESS: This is a very pleasant 78-year-old male, who came to the hospital with complaint of 3-4 days of significant vomiting. Apparently, he had this episode in May and he came to the hospital. He was told that his sugars are high and that is why he was vomiting. Denies any hematemesis. No significant weight loss. Past endoscopy and colonoscopy he stated over 5 years ago. He had 2 colonic polyps. PAST MEDICAL HISTORY: 1. Diabetes. 2. Hypertension. 3. Obesity. 4. Colonic polyp. 5. Possible gastroparesis. ALLERGIES: No known allergies. MEDICATIONS: Please see medication reconciliation list. SOCIAL HISTORY: The patient is a smoker. Denies any alcohol abuse. Denies any substance abuse. FAMILY HISTORY: Noncontributory. REVIEW OF SYSTEMS: A 10-point review of systems was performed and pertinent positives in HPI. PHYSICAL EXAMINATION: VITAL SIGNS: Temperature 98.4, pulse is 139, respirations 20, and blood pressure of 157/91. HEENT: Normocephalic and atraumatic. Sclerae anicteric. NECK: Supple. No evidence of obvious lymphadenopathy. CARDIOVASCULAR: Tachy. Regular . Plus S1, S2. LUNGS: Decreased breath sounds bilaterally on supine exam. ABDOMEN: Soft, nontender. No rebound. No guarding. No peritoneal sign. EXTREMITIES: No cyanosis, no clubbing, no edema. LABORATORY DATA: White count is 8.7, hemoglobin 16, hematocrit 49, platelet count is 276,000. Chem-7, sodium is 138, potassium 3.9, BUN is 32, creatinine is 2.0, glucose is 298. Hemoglobin A1c in last admission was 8.9. Abdominal x-ray showed no evidence of any bowel obstruction. ASSESSMENT AND PLAN: This is a 78-year-old male with nausea, vomiting, and tachycardia. Nausea and vomiting possibly secondary to gastroparesis. I plan to start the patient on Reglan. Order CT. Given the creatinine, we are going to order without contrast. Follow labs. Follow Cardiology given his tachycardia. Consider colonoscopy, the patient agrees, when he is stable given past colonoscopy was over 5 years ago and the patient had two polyps. Roldan Harrell M.D. DR: JANETT JOB#: [id number] CC:
--- NOTE | 2018-11-24 19:34 | NUR ---
HAND-OFF: Report given to LELE Cifuentes. Pt in stable condition.
--- NOTE | 2018-11-24 19:45 | History and Physical Report ---
DATE OF ADMISSION: 11/24/2018 CHIEF COMPLAINT: The patient is a 78-year-old male, who presents with chief complaint of fever, chills, nausea, and vomiting. HISTORY OF PRESENT ILLNESS: It began approximately two days prior to admission. The patient began to have subjective fevers and chills. The patient was also having hiccups. The patient then began to experience nausea and vomiting. The patient was unable to tolerate liquids or solids. The patient states his blood sugars have been running in the 200s at home. The patient was worried his blood sugar was high. The patient presented to [place] emergency room. The patient was admitted with nausea, vomiting, fever and chills, to rule out diabetic ketoacidosis. REVIEW OF SYSTEMS: CONSTITUTIONAL: The patient denies weight loss or weight gain. The patient complains of subjective fevers and chills, as above. HEENT: The patient denies ear or throat pain. The patient denies headache. CARDIOVASCULAR: The patient denies palpitations or chest pain. CHEST: The patient denies wheeze or shortness of breath. ABDOMEN: The patient complains of nausea and vomiting, as above. The patient denies diarrhea or constipation. GENITOURINARY: The patient denies dysuria or increased frequency of urination. NEUROMUSCULAR: The patient denies seizures or generalized weakness. PAST MEDICAL HISTORY: Significant for: 1. Type 2 diabetes. 2. Hypertension. 3. Hypercholesterolemia. 4. Obesity. PAST SURGICAL HISTORY: The patient denies. CURRENT MEDICATIONS: 1. Atorvastatin 20 mg p.o. nightly. 2. Glipizide 5 mg p.o. twice daily. 3. NovoLog 5 units subcutaneously q.a.c. meals. 4. Levemir 15 units subcutaneously nightly. 5. Lisinopril 20 mg p.o. daily. 6. Metoprolol 12.5 mg p.o. twice daily. ALLERGIES: No known drug allergies. SOCIAL HISTORY: The patient is and lives alone. The patient admits to tobacco use of three-quarter pack per day. The patient denies alcohol use. PHYSICAL EXAMINATION: VITAL SIGNS: Temperature 99.6, respirations 25, pulse 114, and blood pressure 176/92. GENERAL: The patient is a well-developed and well-nourished male, in no apparent distress. HEENT: Eyes, pupils are equal and responsive to light and accommodation. Extraocular movements are intact. NECK: Supple without lymphadenopathy. CHEST: Lungs are clear to auscultation bilaterally without wheezes or rales. CARDIOVASCULAR: Regular rhythm and rate. S1 and S2 are normal without murmurs, rubs, or gallops. ABDOMEN: Soft, nontender, and nondistended with positive bowel sounds. No evidence of hepatosplenomegaly. Currently, no rebound or guarding noted. EXTREMITIES: Negative for clubbing, cyanosis, or edema. RECTAL/GENITAL: Not performed. NEUROLOGIC: Cranial nerves II through XII grossly intact without focal deficits. Motor strength is 5/5 bilaterally. Deep tendon reflexes are 2+ plantar. LABORATORY STUDIES: WBC 8.7, hemoglobin 16.9, hematocrit 49.8, and platelets 276,000. Sodium 138, potassium 3.9, chloride 102, CO2 22, BUN 32, and creatinine 2.0. Glucose 298. Troponin 0.0 . Anion gap was 14. Urinalysis showed 2+ protein, 4+ glucose, 2+ ketones, and 2+ blood. ASSESSMENT: This is a 78-year-old male with: 1. Nausea and vomiting. 2. Diabetes with hyperglycemia. 3. Hypertension. 4. Hypercholesterolemia. 5. Obesity. TREATMENT: 1. Nausea/vomiting. A Gastroenterology consultation has been obtained with Dr. Roldan Harrell. Nausea and vomiting may be secondary to diabetic ketoacidosis versus gastroenteritis. We will follow recommendations of Gastroenterology. 2. Tachycardia. This may be secondary to dehydration. 3. Diabetes type 2 with hyperglycemia. An endocrinology consultation has been obtained with Dr. Moon. NovoLog sliding scale has been instituted. 4. Dehydration. The patient is currently receiving normal saline. 5. Hypertension. Continue metoprolol and lisinopril, as above. 6. Hypercholesterolemia. Continue atorvastatin, as above. 7. Obesity. Mauro Medrano M.D. DR: ANA ROSA JOB#: [id number] CC:
--- NOTE | 2018-11-24 20:00 | NUR ---
NURSE NOTES: Pt received from LELE Cifuentes alert and oriented x4 with no acute s/s of distress noted. IV site asymptomatic and patent, currently running to 0.45 NS at 75 as ordered. cardiac monitor on - ST at 102. Bed in lowest position, call light and belongings within reach.
--- NOTE | 2018-11-24 20:38 | History & Physical ---
History and Physical History & Physicial HP dictated # [id number] Devin Shen MD Nov 24, 2018 20:38
[2018-11-24] MEDS: Docusate 100mg cap ORAL SCH (20:45)
[2018-11-24] MEDS: Metoprolol Tartrate 12.5mg TAB ORAL SCH (20:47)
[2018-11-24] MEDS ORDERED: Docusate 100mg cap ORAL SCH (21:00)
[2018-11-24] MEDS ORDERED: Metoprolol 25mg tab ORAL SCH (21:00)
--- NOTE | 2018-11-24 21:15 | Consultation ---
DATE OF CONSULTATION: 11/24/2018 CARDIOLOGY CONSULTATION CONSULTING PHYSICIAN: Reji Rodriges M.D. REFERRING PHYSICIAN: Tristan Culver M.D. REASON FOR CONSULTATION: Bradycardia as well as episodes of wide complex tachycardia, rate of 140. HISTORY OF PRESENT ILLNESS: The patient is a 78-year-old gentleman with history of hypertension, diabetes, hyperlipidemia, and was brought to the emergency room for nausea and nonbloody vomiting. The patient has not had any diarrhea and no blood in the stool. The patient also stated that he had fever and was having fatigue and dehydrated. He denies any chest pain or shortness of breath. In the ER, the patient was tachycardic with heart rate in high 130s and 140s with right bundle-branch block morphology. Subsequently, the patient had episodes of heart block with bradycardia. The heart rate down to 40. Cardiac electrophysiology consultation was obtained for further evaluation. REVIEW OF SYSTEMS: Negative other than what was mentioned in history of present illness. PAST MEDICAL HISTORY: As mentioned above in addition to May 2018, he has hyperosmolar coma with hyperglycemia. His baseline creatinine is 1.5. On telemetry, the patient continued to have episodes of wide complex tachycardia. PHYSICAL EXAMINATION: VITAL SIGNS: Blood pressure of 132/86, pulse of 127 to 140, and respiratory rate 18 today. HEAD AND NECK: No JVD. LUNGS: Clear. CARDIOVASCULAR: Tachycardic. S1 and S2 with no gallop or murmur. ABDOMEN: Soft. EXTREMITIES: No edema. LABORATORY DATA: Labs show white count 8.7, hemoglobin 16.9, hematocrit 49.8, and platelet count 276,000. Sodium 138, potassium 3.9, BUN of 32, creatinine of 2.9, glucose of 298, and calcium is 10.2. Troponin is negative. ASSESSMENT AND PLAN: 1. Wide complex tachycardia, rate of 140 beats per minute. This could be SVT with right bundle-branch block aberrancy. I cannot exclude the possibility of ventricular tachycardia on this as he has a 12-lead EKG, sinus rhythm. The patient also today had AV block with a ventricular response rate in the 40s. Also, had episodes of SVT rate of 150 beats per minute today and self-terminated. At this time, we will start the patient on metoprolol 25 mg b.i.d. We will watch very closely in view of the episodes of transient AV block. We will transfer the patient to step-down unit for closer monitoring. His preliminary echocardiogram for ejection fraction of 60%. 2. Hypertension, on lisinopril 20 mg daily and metoprolol 25 mg b.i.d. 3. Diabetes, on insulin. 4. Renal failure. Thank you very much, Dr. Culver, for allowing me to participate in the care of this patient. Please do not hesitate to contact me for any questions regarding my evaluation. Reji Rodriges M.D. DR: MARCO JOB#: [id number] CC:
--- NOTE | 2018-11-24 23:00 | Consultation ---
DATE OF CONSULTATION: 11/24/2018 NEPHROLOGY CONSULTATION CONSULTING PHYSICIAN: Devin Shen M.D. REFERRING PHYSICIAN: Mauro Medrano M.D. REASON FOR CONSULTATION: Renal failure. HISTORY OF PRESENT ILLNESS: This is a 78-year-old male who was admitted with vomiting. The patient states that he has had nausea and vomiting for the past few weeks. He, however, did not seek medical attention until today. He was found to have also BUN and creatinine at 32 and 2.0, and Dr. Carrillo was asked to see him in nephrology consultation. I am covering Dr. Carrillo today. PAST MEDICAL HISTORY: The patient denies any previous history of kidney disease. He does have history of diabetes mellitus, insulin-dependent for many years, but he denies history of retinopathy. He never had laser surgery in his eyes. The patient has also history of hypertension and hyperlipidemia. MEDICATIONS: Reviewed . SOCIAL HISTORY: The patient lives by himself. No history of smoking or alcohol abuse. ALLERGIES: No known drug allergies. REVIEW OF SYSTEMS: Noncontributory except as above. PHYSICAL EXAMINATION: GENERAL: The patient is an elderly male, in no acute distress. VITAL SIGNS: Blood pressure is 137/70, pulse 110, temperature 98.9, and respiratory rate is 22. HEENT: Supai conjunctivae. Anicteric sclerae. NECK: Supple. LUNGS: Clear to auscultation. HEART: S1 and S2 without murmurs or rubs. ABDOMEN: Soft and nontender. EXTREMITIES: No cyanosis or edema. LABORATORY FINDINGS: CBC shows WBC of 8700, hematocrit 49.8, hemoglobin 16.9, and platelets 276,000. Chemistry panel shows serum sodium 138, potassium 3.9, chloride 102, BUN 32, creatinine 2, blood sugar is 298, and calcium is 10.2. UA shows 2 to 4 rbc's and 0 to 2 wbc's per high-power field and 2+ protein. ASSESSMENT: This is a 78-year-old male who was admitted with nausea and vomiting. He has renal failure. It is unclear what his baseline serum creatinine is. He is unaware of any kidney disease in the past, but he does have 2+ protein in the urine, so there is a possibly of CKD as a result of diabetes and hypertension. On the other hand, because of his vomiting, there is a good possibility of acute renal failure from prerenal azotemia and finally obstruction needs to be ruled out. PLAN: 1. The patient will be hydrated with IV fluids. A renal ultrasound will be done to look at the echogenicity of the kidneys and also to rule out any obstruction. 2. A PTH level as well as vitamin D level will be ordered to make sure the patient is a vitamin D deficiency or secondary hyperthyroidism. Thank you very much for this consultation. Devin Shen M.D. DR: DEL JOB#: [id number] CC: MARGARET
[2018-11-25] VITALS (7 sets, daily range): BP systolic 118–161; BP diastolic 63–104
[2018-11-25] MEDS: NovoLOG Insulin Flexpen SUBQ SCH ×4 (06:00→21:27)
--- NOTE | 2018-11-25 06:28 | General Progress Note ---
Assessment/Plan Assessment/Plan: 1. Diabetes. 2. Hypertension. 3. Obesity. 4. Colonic polyp. 5. Possible gastroparesis 6. Bradycardia 7. Distal esophageal wall thickening ppi reglan needs EGD and colonoscopy but will wait for cardiology clearance fu labs Subjective ROS Limited/Unobtainable: Yes Allergies: Coded Allergies: No Known Allergies (Unverified , 06/14/18) Objective Last 24 Hour Vital Signs Date Time Temp Pulse Resp B/P (MAP) Pulse Ox O2 Delivery O2 Flow Rate FiO2 11/25/18 04:00 98.6 97 20 153/94 (113) 100 11/25/18 04:00 Room Air 11/25/18 04:00 77 11/25/18 00:00 99.8 91 20 138/65 (89) 96 11/25/18 00:00 91 11/25/18 00:00 Room Air 11/24/18 21:00 Room Air 11/24/18 20:47 102 156/86 11/24/18 20:00 109 11/24/18 20:00 98.0 102 20 156/85 (108) 96 11/24/18 16:00 98.9 105 22 137/70 (92) 94 11/24/18 16:00 110 11/24/18 16:00 Room Air 11/24/18 12:00 99.7 127 20 132/86 (101) 97 11/24/18 09:00 Room Air 11/24/18 08:18 40 11/24/18 08:00 98.4 139 20 157/91 (113) 97 Intake and Output 11/24/18 11/25/18 18:59 06:59 Intake Total 495 ml 675 ml Output Total 600 ml 500 ml Balance -105 ml 175 ml Intake Oral 120 ml IV Total 375 ml 675 ml Output Urine Total 600 ml 500 ml # Voids 3 # Bowel Movements 1 Laboratory Tests 11/24/18 14:45: Troponin I 0.112H Height (Feet): 5 Height (Inches): 9.00 Weight (Pounds): 218 General Appearance: alert EENT: normal ENT inspection Neck: supple Cardiovascular: normal rate Respiratory/Chest: lungs clear Abdomen: normal bowel sounds, non tender, soft Extremities: non-tender Roldan Harrell MD Nov 25, 2018 06:28
[2018-11-25 07:06] LABS: BASOPHILS % (AUTO) 0.9 % (0.0-2.0); EOSINOPHILS % (AUTO) 0.3 % (0.0-3.0); HEMATOCRIT 47.2 % (42.0-52.0); HEMOGLOBIN 15.9 G/DL (14.2-18.0); LYMPHOCYTES % (AUTO) 22.6 % (20.0-45.0); MEAN CORPUSCULAR VOLUME 93 FL (80-99); MONOCYTES % (AUTO) 8.4 % (1.0-10.0); NEUTROPHILS % (AUTO) 67.9 % (45.0-75.0); PLATELET COUNT 292 K/UL (150-450); RED BLOOD COUNT 5.08 M/UL (4.70-6.10); RED CELL DISTRIBUTION WIDTH 13.1 % (11.6-14.8); WHITE BLOOD COUNT 11.5 K/UL (4.8-10.8)
--- NOTE | 2018-11-25 07:21 | NUR ---
HAND-OFF: Report given to LELE Flores. No acute s/s of distress noted.
--- NOTE | 2018-11-25 07:22 | NUR ---
NURSE NOTES: Received patient in bed. Awake, able to verbalized needs, call light within reach. In no apparent distress. Will continue plan of care.
[2018-11-25 07:37] LABS: ANION GAP 16 mmol/L (5-15); BLOOD UREA NITROGEN 20 mg/dL (7-18); CALCIUM 8.8 MG/DL (8.5-10.1); CARBON DIOXIDE 24 MMOL/L (21-32); CHLORIDE 102 MMOL/L (98-107); CHOLESTEROL 143 MG/DL (< 200); CREATININE 1.5 MG/DL (0.55-1.30); HDL CHOLESTEROL 42 MG/DL (40-60); POTASSIUM 3.3 MMOL/L (3.5-5.1); SODIUM 142 MMOL/L (136-145); TRIGLYCERIDES 88 MG/DL (30-150)
[2018-11-25] MEDS ORDERED: Lisinopril 20mg tab ORAL SCH ×2 (09:00)
[2018-11-25] MEDS ORDERED: Enoxaparin 40mg Inj SUBQ SCH (09:00)
--- NOTE | 2018-11-25 09:44 | Pulmonology Progress Note ---
Assessment/Plan Assessment/Plan ASSESSMENT Wide complex tachycardia Elevated troponin, possible NSTEMI Hypertensive urgency-resolved Diabetes mellitus with hyperglycemia Abdominal pain with nausea and vomiting SASHA , likely secondary to dehydration on possible CRI ( baseline creat 1.5 on prior admission) Esophageal wall thickening/per CT scan Electrolytes abnormalities/hypokalemia, hypomagnesemia PLAN OF CARE [facility] due to SVT /wide complex tachy and elevated troponin tachy resolved cardio follows minimal elevation of troponin, ECG pending for this am ECHO preliminary report with pEF BP management with BB and TUCKER, Hydralazine prn-further recs as per cardio lipid panel stable CT A/P with distal esophageal wall thickening GI follwos will need EGD/colon agter cardio clearnace tolerated liquid diet, started on regular diet as per GI dc IVF GI prophayxlis a/emetic prn pain managemtn creat down to 1.5 - baseline monitor renal parameters, lytes, correct lytes prn, avoid nephrotoxic baseline creat appeared to be 1.5 at prior admission renal US on prior admission with normal ally kidney echogenicity renal US pending nephro follows BS management with SSI, HgA1c -7.2 DVT supportive care case discussed and evaluated by supervising physician Subjective Allergies: Coded Allergies: No Known Allergies (Unverified , 06/14/18) Subjective transferred to [facility] due to episode of SVT, rate stable currently creat down to 1.5 no signs of resp distress, pulse ox stable on RA tolerated liquid diet and started on regular diet as per GI Objective Last 24 Hour Vital Signs Date Time Temp Pulse Resp B/P (MAP) Pulse Ox O2 Delivery O2 Flow Rate FiO2 11/25/18 07:26 69 18 95 Room Air 11/25/18 04:00 98.6 97 20 153/94 (113) 100 11/25/18 04:00 Room Air 11/25/18 04:00 77 11/25/18 00:00 99.8 91 20 138/65 (89) 96 11/25/18 00:00 91 11/25/18 00:00 Room Air 11/24/18 21:00 Room Air 11/24/18 20:47 102 156/86 11/24/18 20:00 109 11/24/18 20:00 98.0 102 20 156/85 (108) 96 11/24/18 16:00 98.9 105 22 137/70 (92) 94 11/24/18 16:00 110 11/24/18 16:00 Room Air 11/24/18 12:00 99.7 127 20 132/86 (101) 97 Intake and Output 11/24/18 11/25/18 18:59 06:59 Intake Total 495 ml 675 ml Output Total 600 ml 500 ml Balance -105 ml 175 ml Intake Oral 120 ml IV Total 375 ml 675 ml Output Urine Total 600 ml 500 ml # Voids 3 # Bowel Movements 1 Objective General Appearance: no apparent distress , more awake and alert, somewhat forgetful Lines, tubes and drains: peripheral HEENT: normocephalic, atraumatic, anicteric Neck: non-tender, supple Respiratory/Chest: chest wall non-tender, lungs clear, no respiratory distress , no accessory muscle use Cardiovascular/Chest: normal peripheral pulses, no JVD, regular rate Abdomen: normal bowel sounds, non tender, soft Extremities: normal range of motion, non-tender, no calf tenderness Skin Exam: warm/dry Neurologic: no motor/sensory deficits, alert Musculoskeletal: normal muscle bulk Laboratory Tests 11/24/18 14:45: Troponin I 0.112H 11/25/18 03:46: Troponin I 0.057H, White Blood Count 11.5H, Red Blood Count 5.08, Hemoglobin 15.9, Hematocrit 47.2, Mean Corpuscular Volume 93, Mean Corpuscular Hemoglobin 31.2H, Mean Corpuscular Hemoglobin Concent 33.6, Red Cell Distribution Width 13.1, Platelet Count 292, Mean Platelet Volume 6.4L, Neutrophils (%) (Auto) 67.9 , Lymphocytes (%) (Auto) 22.6, Monocytes (%) (Auto) 8.4, Eosinophils (%) (Auto) 0.3, Basophils (%) (Auto) 0.9, Sodium Level 142, Potassium Level 3.3L, Chloride Level 102, Carbon Dioxide Level 24, Anion Gap 16H, Blood Urea Nitrogen 20H, Creatinine 1.5H, Estimat Glomerular Filtration Rate , Glucose Level 159#H, Hemoglobin A1c 7.2H, Calcium Level 8.8, Calcium (Send out) [Pending], Magnesium Level 1.7L, Pro-B-Type Natriuretic Peptide 1535H, Triglycerides Level 88, Cholesterol Level 143, LDL Cholesterol 84, HDL Cholesterol 42, Cholesterol/HDL Ratio 3.4, Amylase Level 91, Lipase 252, Prostate Specific Antigen 0.87, Vitamin D 25-Hydroxy [Pending], 25-Hydroxy Vitamin D2 [Pending], 25-Hydroxy Vitamin D3 [Pending], Parathyroid Hormone (Intact) [Pending] Current Medications Medications (Trade) Dose Ordered Sig/Indira Route PRN Reason Start Time Stop Time Status Last Admin Dose Admin Acetaminophen (Tylenol) 650 mg Q4H PRN ORAL Mild Pain (Pain Scale 1-3) 11/24/18 17:15 12/24/18 09:14 Al Hydroxide/Mg Hydroxide (Mylanta II) 30 ml Q6H PRN ORAL dyspepsia 11/24/18 17:00 12/24/18 16:59 Albuterol/ Ipratropium (Albuterol/ Ipratropium) 3 ml Q4H PRN HHN Shortness of Breath 11/24/18 17:00 11/29/18 16:59 Barium Sulfate (Readi-Cat 2) 450 ml NOW PRN ORAL Radiology Procedure 11/25/18 09:45 11/26/18 09:33 Dextrose (Dextrose 50%) 25 ml Q30M PRN IV Hypoglycemia 11/24/18 17:00 12/24/18 09:29 Dextrose (Dextrose 50%) 50 ml Q30M PRN IV Hypoglycemia 11/24/18 17:00 12/24/18 09:29 Diphenhydramine HCl (Benadryl) 25 mg Q6H PRN ORAL Itching/Pruritis 11/24/18 17:00 12/24/18 16:59 Docusate Sodium (Colace) 100 mg EVERY 12 HOURS ORAL 11/24/18 21:00 12/24/18 20:59 11/24/18 20:45 Enoxaparin Sodium (Lovenox) 40 mg DAILY SUBQ 11/25/18 09:00 12/25/18 08:59 Famotidine (Pepcid) 40 mg DAILY ORAL 11/25/18 09:00 12/25/18 08:59 Hydralazine HCl (Apresoline) 25 mg Q6H PRN ORAL sbp above 160mmHg 11/24/18 17:00 12/24/18 16:59 Insulin Aspart (NovoLOG) BEFORE MEALS AND HS SUBQ 11/24/18 17:30 12/24/18 17:29 11/25/18 06:00 Lisinopril (Prinivil) 20 mg DAILY ORAL 11/25/18 09:00 12/25/18 08:59 Metoclopramide HCl (Reglan) 10 mg Q6H PRN IVP Nausea & Vomiting 11/24/18 17:00 12/24/18 16:59 Metoprolol Tartrate (Lopressor) 12.5 mg Q12HR ORAL 11/24/18 21:00 12/24/18 20:59 11/24/18 20:47 Ondansetron HCl (Zofran) 4 mg Q6H PRN IVP Nausea & Vomiting 11/24/18 17:00 12/24/18 16:59 Polyethylene Glycol (Miralax) 17 gm DAILYPRN PRN ORAL Constipation 11/25/18 16:00 12/24/18 15:59 Sodium Chloride 1,000 ml @ 75 mls/hr [id number] IV 11/24/18 16:30 12/24/18 16:14 11/25/18 03:56 Zolpidem Tartrate (Ambien) 5 mg HSPRN PRN ORAL Insomnia 11/24/18 21:00 12/01/18 20:59 Katelyn Flores NP Nov 25, 2018 09:44
--- NOTE | 2018-11-25 10:05 | Nephrology Progress Note ---
Assessment/Plan Problem List: (1) SASHA (acute kidney injury) Assessment: better (2) Diabetes mellitus Assessment: high A1C (3) Hypokalemia (4) Hypomagnesemia Plan Replete K and Mag DC IVF check renal US check Vit D and PTH Discussed with RN Subjective Subjective diarrhea stopped Objective Objective Last 24 Hour Vital Signs Date Time Temp Pulse Resp B/P (MAP) Pulse Ox O2 Delivery O2 Flow Rate FiO2 11/25/18 08:00 97.9 95 22 130/85 (100) 98 11/25/18 07:57 97 11/25/18 07:26 69 18 95 Room Air 11/25/18 04:00 98.6 97 20 153/94 (113) 100 11/25/18 04:00 Room Air 11/25/18 04:00 77 11/25/18 00:00 99.8 91 20 138/65 (89) 96 11/25/18 00:00 91 11/25/18 00:00 Room Air 11/24/18 21:00 Room Air 11/24/18 20:47 102 156/86 11/24/18 20:00 109 11/24/18 20:00 98.0 102 20 156/85 (108) 96 11/24/18 16:00 98.9 105 22 137/70 (92) 94 11/24/18 16:00 110 11/24/18 16:00 Room Air 11/24/18 12:00 99.7 127 20 132/86 (101) 97 Intake and Output 11/24/18 11/25/18 18:59 06:59 Intake Total 495 ml 675 ml Output Total 600 ml 500 ml Balance -105 ml 175 ml Intake Oral 120 ml IV Total 375 ml 675 ml Output Urine Total 600 ml 500 ml # Voids 3 # Bowel Movements 1 Laboratory Tests 11/24/18 14:45: Troponin I 0.112H 11/25/18 03:46: Troponin I 0.057H, White Blood Count 11.5H, Red Blood Count 5.08, Hemoglobin 15.9, Hematocrit 47.2, Mean Corpuscular Volume 93, Mean Corpuscular Hemoglobin 31.2H, Mean Corpuscular Hemoglobin Concent 33.6, Red Cell Distribution Width 13.1, Platelet Count 292, Mean Platelet Volume 6.4L, Neutrophils (%) (Auto) 67.9 , Lymphocytes (%) (Auto) 22.6, Monocytes (%) (Auto) 8.4, Eosinophils (%) (Auto) 0.3, Basophils (%) (Auto) 0.9, Sodium Level 142, Potassium Level 3.3L, Chloride Level 102, Carbon Dioxide Level 24, Anion Gap 16H, Blood Urea Nitrogen 20H, Creatinine 1.5H, Estimat Glomerular Filtration Rate , Glucose Level 159#H, Hemoglobin A1c 7.2H, Calcium Level 8.8, Calcium (Send out) [Pending], Magnesium Level 1.7L, Pro-B-Type Natriuretic Peptide 1535H, Triglycerides Level 88, Cholesterol Level 143, LDL Cholesterol 84, HDL Cholesterol 42, Cholesterol/HDL Ratio 3.4, Amylase Level 91, Lipase 252, Prostate Specific Antigen 0.87, Vitamin D 25-Hydroxy [Pending], 25-Hydroxy Vitamin D2 [Pending], 25-Hydroxy Vitamin D3 [Pending], Parathyroid Hormone (Intact) [Pending] Height (Feet): 5 Height (Inches): 9.00 Weight (Pounds): 218 Cardiovascular: normal rate Respiratory/Chest: lungs clear Extremities: other - no edema Devin Shen MD Nov 25, 2018 10:05
[2018-11-25] MEDS: Metoprolol Tartrate 12.5mg TAB ORAL SCH ×2 (10:20→21:07)
[2018-11-25] MEDS: Docusate 100mg cap ORAL SCH ×2 (10:21→21:07)
[2018-11-25] MEDS ORDERED: D5 1/2NS 1000ml IV ONE (11:15)
--- NOTE | 2018-11-25 13:30 | Cardiology Report ---
APPROVED REPORT EXAM: Two-dimensional and M-mode echocardiogram with Doppler and color Doppler. INDICATION Tachycardia M-Mode DIMENSIONS IVSd1.7 (0.7-1.1cm)Left Atrium (MM)2.6 (1.6-4.0cm) LVDd3.4 (3.5-5.6cm)Aortic Root3.6 (2.0-3.7cm) PWd1.3 (0.7-1.1cm)Aortic Cusp Exc.2.4 (1.5-2.0cm) LVDs1.6 (2.5-4.0cm) PWs2.2 cm Technically difficult study due to poor apical windows. Study quality precludes accurate assessment of regional wall motion iwth evidence for cavity obliteration . Normal left ventricular chamber size, hyperdynamic systolic function and wall motion to extent visualized. Left ventricular ejection fraction estimated to be 70-75 %. Mild left ventricular hypertrophy. No evidence of pericardial effusion. Mild right atrial enlargement. Left atrial chamber size is within normal limits. Right ventricular chamber sizes is within normal limits. Focal aortic valve sclerosis with adequate cusp excursion. Thickened mitral valve leaflets with normal excursion. Mitral annulus and aortic root calcification. Pulmonic valve not well visualized. Normal tricuspid valve structure. IVC is normal in size with physiological collapse. A color flow and spectral Doppler study was performed and revealed: No aortic regurgitation. No mitral regurgitation. Left ventricular diastolic function could not be determined due to A-Fib. Trace tricuspid regurgitation. Tricuspid systolic velocities suggests peak right ventricular systolic pressure of 16 mmHg. No pulmonic regurgitation present.
--- NOTE | 2018-11-25 13:30 | NUR ---
NURSE NOTES: Dr. Rodriges at bedside. He ordered to have patient transferred in [facility] for Cardiac cath and electrophysiology studies.
--- NOTE | 2018-11-25 13:36 | Cardiac Electrophysiology PN ---
Assessment/Plan Assessment/Plan 1. Wide complex tachycardia, rate of 150 beats per minute. Due to SVT with right bundle-branch block aberrancy. The patient also had AV block with a ventricular response rate in the 40s. Continue metoprolol 12.5 mg b.i.d. His preliminary echocardiogram for ejection fraction of 60%. 2. Hypertension, on lisinopril 20 mg daily and metoprolol 12.5 mg b.i.d. 3. NSTEMI in a patient with HTN and DM. Could be demand ischemia due to SVT. On Aspirin, Lopressor and Lipitor Transfer for cardiac cath and EP study 3. Diabetes, on insulin. 4. Renal failure.Cr 2 to 1.[address] Culver Subjective Subjective Transferred to SDU for recurrent SVT. No episode overnight Objective Last 24 Hour Vital Signs Date Time Temp Pulse Resp B/P (MAP) Pulse Ox O2 Delivery O2 Flow Rate FiO2 11/25/18 12:00 98.0 85 21 118/63 (81) 94 11/25/18 12:00 Room Air 11/25/18 10:21 130/85 11/25/18 10:20 95 130/85 11/25/18 08:00 Room Air 11/25/18 08:00 97.9 95 22 130/85 (100) 98 11/25/18 07:57 97 11/25/18 07:26 69 18 95 Room Air 11/25/18 04:00 98.6 97 20 153/94 (113) 100 11/25/18 04:00 Room Air 11/25/18 04:00 77 11/25/18 00:00 99.8 91 20 138/65 (89) 96 11/25/18 00:00 91 11/25/18 00:00 Room Air 11/24/18 21:00 Room Air 11/24/18 20:47 102 156/86 11/24/18 20:00 109 11/24/18 20:00 98.0 102 20 156/85 (108) 96 11/24/18 16:00 98.9 105 22 137/70 (92) 94 11/24/18 16:00 110 11/24/18 16:00 Room Air Intake and Output 11/24/18 11/25/18 19:00 07:00 Intake Total 495 ml 675 ml Output Total 600 ml 500 ml Balance -105 ml 175 ml Intake Oral 120 ml IV Total 375 ml 675 ml Output Urine Total 600 ml 500 ml # Voids 3 # Bowel Movements 1 Laboratory Tests Test 11/24/18 14:45 11/25/18 03:46 Troponin I 0.112 ng/mL (0.000-0.056) 0.057 ng/mL (0.000-0.056) White Blood Count 11.5 K/UL (4.8-10.8) H Red Blood Count 5.08 M/UL (4.70-6.10) Hemoglobin 15.9 G/DL (14.2-18.0) Hematocrit 47.2 % (42.0-52.0) Mean Corpuscular Volume 93 FL (80-99) Mean Corpuscular Hemoglobin 31.2 PG (27.0-31.0) H Mean Corpuscular Hemoglobin Concent 33.6 G/DL (32.0-36.0) Red Cell Distribution Width 13.1 % (11.6-14.8) Platelet Count 292 K/UL (150-450) Mean Platelet Volume 6.4 FL (6.5-10.1) L Neutrophils (%) (Auto) 67.9 % (45.0-75.0) Lymphocytes (%) (Auto) 22.6 % (20.0-45.0) Monocytes (%) (Auto) 8.4 % (1.0-10.0) Eosinophils (%) (Auto) 0.3 % (0.0-3.0) Basophils (%) (Auto) 0.9 % (0.0-2.0) Sodium Level 142 MMOL/L (136-145) Potassium Level 3.3 MMOL/L (3.5-5.1) L Chloride Level 102 MMOL/L (98-107) Carbon Dioxide Level 24 MMOL/L (21-32) Anion Gap 16 mmol/L (5-15) H Blood Urea Nitrogen 20 mg/dL (7-18) H Creatinine 1.5 MG/DL (0.55-1.30) H Estimat Glomerular Filtration Rate mL/min (>60) Glucose Level 159 MG/DL (74-106) #H Hemoglobin A1c 7.2 % (4.3-6.0) H Calcium Level 8.8 MG/DL (8.5-10.1) Calcium (Send out) Pending Magnesium Level 1.7 MG/DL (1.8-2.4) L Pro-B-Type Natriuretic Peptide 1535 pg/mL (0-125) H Triglycerides Level 88 MG/DL (30-150) Cholesterol Level 143 MG/DL (< 200) LDL Cholesterol 84 mg/dL (<100) HDL Cholesterol 42 MG/DL (40-60) Cholesterol/HDL Ratio 3.4 (3.3-4.4) Amylase Level 91 U/L (25-115) Lipase 252 U/L (73-393) Prostate Specific Antigen 0.87 ng/mL (0.13-4.0) Vitamin D 25-Hydroxy Pending 25-Hydroxy Vitamin D2 Pending 25-Hydroxy Vitamin D3 Pending Parathyroid Hormone (Intact) Pending Objective HEAD AND NECK: No JVD. LUNGS: Clear. CARDIOVASCULAR: Regular S1 and S2 with no gallop or murmur. ABDOMEN: Soft. EXTREMITIES: No edema. Reji Rodriges MD Nov 25, 2018 13:36
--- NOTE | 2018-11-25 14:12 | Internal Med Progress Note ---
Subjective Date of Service: Nov 25, 2018 Physician Name Mauro Medrano Attending Physician Tristan Culver MD Current Medications Medications (Trade) Dose Ordered Sig/Indira Route PRN Reason Start Time Stop Time Status Last Admin Dose Admin Acetaminophen (Tylenol) 650 mg Q4H PRN ORAL Mild Pain (Pain Scale 1-3) 11/24/18 17:15 12/24/18 09:14 Al Hydroxide/Mg Hydroxide (Mylanta II) 30 ml Q6H PRN ORAL dyspepsia 11/24/18 17:00 12/24/18 16:59 Albuterol/ Ipratropium (Albuterol/ Ipratropium) 3 ml Q4H PRN HHN Shortness of Breath 11/24/18 17:00 11/29/18 16:59 Aspirin (ASA) 81 mg DAILY ORAL 11/26/18 09:00 12/26/18 08:59 Atorvastatin Calcium (Lipitor) 40 mg BEDTIME ORAL 11/25/18 21:00 12/25/18 20:59 Barium Sulfate (Readi-Cat 2) 450 ml NOW PRN ORAL Radiology Procedure 11/25/18 09:45 11/26/18 09:33 Dextrose (Dextrose 50%) 25 ml Q30M PRN IV Hypoglycemia 11/24/18 17:00 12/24/18 09:29 Dextrose (Dextrose 50%) 50 ml Q30M PRN IV Hypoglycemia 11/24/18 17:00 12/24/18 09:29 Diphenhydramine HCl (Benadryl) 25 mg Q6H PRN ORAL Itching/Pruritis 11/24/18 17:00 12/24/18 16:59 Docusate Sodium (Colace) 100 mg EVERY 12 HOURS ORAL 11/24/18 21:00 12/24/18 20:59 11/25/18 10:21 Enoxaparin Sodium (Lovenox) 40 mg DAILY SUBQ 11/25/18 09:00 12/25/18 08:59 11/25/18 10:22 Famotidine (Pepcid) 40 mg DAILY ORAL 11/25/18 09:00 12/25/18 08:59 11/25/18 10:21 Hydralazine HCl (Apresoline) 25 mg Q6H PRN ORAL sbp above 160mmHg 11/24/18 17:00 12/24/18 16:59 Insulin Aspart (NovoLOG) BEFORE MEALS AND HS SUBQ 11/24/18 17:30 12/24/18 17:29 11/25/18 12:24 Lisinopril (Prinivil) 20 mg DAILY ORAL 11/25/18 09:00 12/25/18 08:59 11/25/18 10:21 Metoclopramide HCl (Reglan) 10 mg Q6H PRN IVP Nausea & Vomiting 11/24/18 17:00 12/24/18 16:59 Metoprolol Tartrate (Lopressor) 12.5 mg Q12HR ORAL 11/24/18 21:00 12/24/18 20:59 11/25/18 10:20 Ondansetron HCl (Zofran) 4 mg Q6H PRN IVP Nausea & Vomiting 11/24/18 17:00 12/24/18 16:59 Polyethylene Glycol (Miralax) 17 gm DAILYPRN PRN ORAL Constipation 11/25/18 16:00 12/24/18 15:59 Zolpidem Tartrate (Ambien) 5 mg HSPRN PRN ORAL Insomnia 11/24/18 21:00 12/01/18 20:59 Allergies: Coded Allergies: No Known Allergies (Unverified , 06/14/18) ROS Limited/Unobtainable: No Constitutional: Reports: no symptoms HEENT: Reports: no symptoms Cardiovascular: Reports: no symptoms Respiratory: Reports: no symptoms Gastrointestinal/Abdominal: Reports: no symptoms Genitourinary: Reports: no symptoms Neurologic/Psychiatric: Reports: no symptoms Subjective 78 YO M admitted with nausea and vomiting. Now supraventricular tachycardia and NSTEMI. Cover for Int Med-DR Culver.; TALYA Objective Last Vital Signs Date Time Temp Pulse Resp B/P (MAP) Pulse Ox O2 Delivery O2 Flow Rate FiO2 11/25/18 12:00 98.0 85 21 118/63 (81) 94 11/25/18 12:00 Room Air Laboratory Tests Test 11/24/18 14:45 11/25/18 03:46 Troponin I 0.112 ng/mL (0.000-0.056) 0.057 ng/mL (0.000-0.056) White Blood Count 11.5 K/UL (4.8-10.8) H Red Blood Count 5.08 M/UL (4.70-6.10) Hemoglobin 15.9 G/DL (14.2-18.0) Hematocrit 47.2 % (42.0-52.0) Mean Corpuscular Volume 93 FL (80-99) Mean Corpuscular Hemoglobin 31.2 PG (27.0-31.0) H Mean Corpuscular Hemoglobin Concent 33.6 G/DL (32.0-36.0) Red Cell Distribution Width 13.1 % (11.6-14.8) Platelet Count 292 K/UL (150-450) Mean Platelet Volume 6.4 FL (6.5-10.1) L Neutrophils (%) (Auto) 67.9 % (45.0-75.0) Lymphocytes (%) (Auto) 22.6 % (20.0-45.0) Monocytes (%) (Auto) 8.4 % (1.0-10.0) Eosinophils (%) (Auto) 0.3 % (0.0-3.0) Basophils (%) (Auto) 0.9 % (0.0-2.0) Sodium Level 142 MMOL/L (136-145) Potassium Level 3.3 MMOL/L (3.5-5.1) L Chloride Level 102 MMOL/L (98-107) Carbon Dioxide Level 24 MMOL/L (21-32) Anion Gap 16 mmol/L (5-15) H Blood Urea Nitrogen 20 mg/dL (7-18) H Creatinine 1.5 MG/DL (0.55-1.30) H Estimat Glomerular Filtration Rate mL/min (>60) Glucose Level 159 MG/DL (74-106) #H Hemoglobin A1c 7.2 % (4.3-6.0) H Calcium Level 8.8 MG/DL (8.5-10.1) Calcium (Send out) Pending Magnesium Level 1.7 MG/DL (1.8-2.4) L Pro-B-Type Natriuretic Peptide 1535 pg/mL (0-125) H Triglycerides Level 88 MG/DL (30-150) Cholesterol Level 143 MG/DL (< 200) LDL Cholesterol 84 mg/dL (<100) HDL Cholesterol 42 MG/DL (40-60) Cholesterol/HDL Ratio 3.4 (3.3-4.4) Amylase Level 91 U/L (25-115) Lipase 252 U/L (73-393) Prostate Specific Antigen 0.87 ng/mL (0.13-4.0) Vitamin D 25-Hydroxy Pending 25-Hydroxy Vitamin D2 Pending 25-Hydroxy Vitamin D3 Pending Parathyroid Hormone (Intact) Pending Intake and Output 11/24/18 11/25/18 19:00 07:00 Intake Total 495 ml 675 ml Output Total 600 ml 500 ml Balance -105 ml 175 ml Intake Oral 120 ml IV Total 375 ml 675 ml Output Urine Total 600 ml 500 ml # Voids 3 # Bowel Movements 1 Objective PHYSICAL EXAMINATION: GENERAL: The patient is a well-developed and well-nourished male, in no apparent distress. HEENT: Eyes, pupils are equal and responsive to light and accommodation. Extraocular movements are intact. NECK: Supple without lymphadenopathy. CHEST: Lungs are clear to auscultation bilaterally without wheezes or rales. CARDIOVASCULAR: tachycardia; Regular rhythm. S1 and S2 are normal without murmurs, rubs, or gallops. ABDOMEN: Soft, nontender, and nondistended with positive bowel sounds. No evidence of hepatosplenomegaly. Currently, no rebound or guarding noted. EXTREMITIES: Negative for clubbing, cyanosis, or edema. RECTAL/GENITAL: Not performed. NEUROLOGIC: Cranial nerves II through XII grossly intact without focal deficits. Motor strength is 5/5 bilaterally. Deep tendon reflexes are 2+ plantar. Assessment/Plan Assessment/Plan ASSESSMENT: This is a 78-year-old male with: 1. Nausea and vomiting. 2. Diabetes with hyperglycemia. 3. Hypertension. 4. Hypercholesterolemia. 5. Obesity. 6. NSTEMI 7. Wide complex supraventricular tachycardia 8. Right bundle branch block/AV block TREATMENT: 1. Nausea/vomiting. A Gastroenterology consultation has been obtained with Dr. Roldan Harrell. Nausea and vomiting may be secondary to diabetic ketoacidosis versus gastroenteritis. Needs EGD/colonoscopy when cleared by cardiology 2. Tachycardia. This may be secondary to dehydration. 3. Diabetes type 2 with hyperglycemia. An endocrinology consultation has been obtained with Dr. Moon. NovoLog sliding scale has been instituted. 4. Dehydration. The patient is currently receiving normal saline. 5. Hypertension. Continue metoprolol and lisinopril, as above. 6. Hypercholesterolemia. Continue atorvastatin, as above. 7. Obesity. 8. NSTEMI-Demand ischemia vs atherosclerosis. Needs cardiac cath- await transfer to [facility]. 10. Wide complex SVT-see cardiology note-Mauro Gordon MD Nov 25, 2018 14:12
[2018-11-25] MEDS ORDERED: 1/2 NS 1000ml IV ONE (15:43)
[2018-11-25] MEDS ORDERED: Miralax 17gm pkt ORAL PRN (16:00)
--- NOTE | 2018-11-25 19:30 | NUR ---
NURSE NOTES: Received pt from LELE Flores Alert/oriented x4 with no acute s/s of distress noted. HL to lt hand patent when flushed and asymptomatic. director of event sales showing SR at 93. Denies pain or discomfort. Up and about to bathroom. Bed in lowest position, call light and belongings within reach.
--- NOTE | 2018-11-25 19:32 | NUR ---
HAND-OFF: Report given to Esau Vences RN.
[2018-11-25] MEDS ORDERED: Atorvastatin 20mg tab ORAL SCH (21:00)
--- NOTE | 2018-11-25 21:35 | NUR ---
NURSE NOTES: Report given to receiving nurse Young at [facility]. Awaiting [facility] ambulance machine pecan picker at [phone]. Pt is to go to room# 4S12
--- NOTE | 2018-11-25 23:00 | NUR ---
NURSE NOTES: Left via [facility] ambulance. Condition unchanged. No distress noted.
[2018-11-26] MEDS ORDERED: Aspirin Baby 81mg ORAL SCH (09:00)
--- NOTE | 2018-11-26 10:08 | Discharge Summary ---
Discharge Summary Discharge Summary _ DATE OF ADMISSION: 11/24/2018 DATE OF DISCHARGE: 11/25/2018 DISCHARGED BY: Dr. Culver REASON FOR ADMISSION: 78 years old male with past medical history of diabetes mellitus, hypertension, hyperlipidemia, presented due to nausea and vomiting. Patient reported abdominal pain with nausea and nonbloody vomiting. No diarrhea. No blood in stool. Patient reported subjective fever along with fatigue, weakness and dehydration. Patient denied chest pain or shortness of breath. He denied dysuria , hematuria, flank pain. He was unable to hold down any food. Upon evaluation patient was found to be tachycardic and blood pressure was significantly elevated. Abdominal x-ray revealed nonspecific bowel gas pattern with moderate stool, but not obstructed. Troponin was negative. EKG revealed sinus rhythm with intermittent episodes of tachycardia, right bundle branch block pattern, no acute ischemic changes. Laboratory work-up revealed no leukocytosis, stable hemoglobin and hematocrit. BUN 32, creatinine 2. Glucose 298. Stable LFT and lipase. Patient had a prior admission on May 2018 for severe hyperglycemia due to hyperosmolar coma, lactic acidosis and acute kidney injury. At that time baseline creatinine was 1.5. Patient subsequently admitted to telemetry floor for further management. CONSULTANTS: commissioner of conciliation Dr. Thomas pulmonary/follow up specialist Dr. Blandon GI specialist Dr. Harrell facilities clerk Dr. Shen [facility] COURSE: Patient admitted to telemetry floor. Patient initially kept n.p.o. on the IV fluids. Renal parameters and electrolytes were closely monitored. Echocardiogram revealed preserved ejection fraction of 70 to 75% with mild left ventricular hypertrophy. No evidence of pericardial effusion. Right ventricular systolic pressure of 16. DVT prophylaxis provided. Patient developed wide-complex tachycardia on the telemetry floor. Repeated troponin was elevated 0.112. Patient subsequently was transferred to direct observational unit for further management. Lipid panel was stable. According to commissioner of conciliation , wide-complex tachycardia with heart rate of 150 bpm was due to SVT with right bundle branch block aberrancy. The patient also had AV block with ventricular response in the 40s. Blood pressure was managed with TUCKER inhibitor and beta-ebony. Repeated troponin was still elevated, but trending down. Per commissioner of conciliation, NSTEMI in patient with hypertension and diabetes could be demand ischemia due to SVT. Patient was on antiplatelet therapy with aspirin , abd beta-ebony started. Per commissioner of conciliation, patient required cardiac catheterization and EP studies. Patient was placed on the waiting list for transfer to [facility]. CT of the abdomen and pelvis revealed thickening of the distal esophagus , possibly esophagitis versus infiltrative lesion. No colitis. GI specialist followed. Patient started on trial of clear liquid diet. Supportive treatment with antiemetic provided as needed . Pain management was addressed. Patient was able to tolerate diet and diet was advanced to regular as tolerated. GI specialist recommended that patient will need further GI evaluation with upper endoscopy after cardiology clearance. GI prophylaxis provided. Renal parameters and electrolytes were closely monitored. Electrolytes/potassium and magnesium were replaced. Nephrotoxins were avoided. Creatinine trended down to 1.5. Renal ultrasound done prior to admission revealed normal bilateral kidney echogenicity. Renal ultrasound was ordered for this admission as well . [employer] Manager followed. Blood sugar was managed with sliding scale of insulin. Hemoglobin A1c 7.2. Placement at [facility] became available on November 25. Patient subsequently transferred via [facility] ambulance for cardiac catheterization and EP study. FINAL DIAGNOSES: NSTEMI Wide-complex supraventricular tachycardia Right bundle branch block Hypertension with initial hypertensive urgency-resolved Hypercholesterolemia Diabetes mellitus with hyperglycemia Abdominal pain with nausea and vomiting Obesity Esophageal wall thickening DISCHARGE MEDICATIONS: List of medication was sent to accepting facility DISCHARGE INSTRUCTIONS: Patient was transferred to [facility] for cardiac catheterization and EP study. Katelyn Flores NP Nov 26, 2018 10:08
== END 2018-11-25 22:49 | disposition short-term general hospital (02) | DRG 281 ==
LOC: EDBD 00:10 → EMR 01:33 → 4E 02:29 → EDBEDREQ 03:08 → 2E 04:53 → 2W 16:01
DX: I21.4 Non-ST elevation (NSTEMI) myocardial infarction (principal); N17.9 Acute kidney failure, unspecified; I47.1 Supraventricular tachycardia; E86.0 Dehydration; E11.65 Type 2 diabetes mellitus with hyperglycemia; I16.0 Hypertensive urgency; E11.43 Type 2 diabetes mellitus with diabetic autonomic (poly)neuropathy; K31.84 Gastroparesis; E66.9 Obesity, unspecified; Z68.32 Body mass index [BMI] 32.0-32.9, adult; I10 Essential (primary) hypertension; E78.00 Pure hypercholesterolemia, unspecified; Z79.4 Long term (current) use of insulin; F17.200 Nicotine dependence, unspecified, uncomplicated; I45.10 Unspecified right bundle-branch block; R10.9 Unspecified abdominal pain; E87.6 Hypokalemia; E83.42 Hypomagnesemia
CPT/HCPCS: 36415; 71045; 74018; 74176; 80048; 80053; 80061; 81003; 82150; 82306; 82962; 83036; 83690; 83735; 83880; 83970; 84153; 84484; 85025; 93005; 93306; 94664; 96361; 96374; 96375; 99285; J1815; J2405; J2765; J8499